=== PATIENT | male | born 1940 | race Caucasian/White ===

== ENCOUNTER 2018-12-13 01:18 | Inpatient (IN) | payer MEDICARE, OTHER ==
[~2018-12-13] VITALS: Ht 170.2 cm; Wt 83.5 kg
[2018-12-13] VITALS (26 sets, daily range): BP systolic 94–147; BP diastolic 37–95
--- NOTE | 2018-12-13 01:30 | NUR ---
PT FRANCIS FROM HOME C/O SOB X1 DAY. REC'D 5MG ALBUTEROL TREATMENT, MINIMAL RELIEF. BS 123. PT AOX4. DENIES PAIN AT THIS TIME. PT ON MONITOR IN BED 11. WILL CONTINUE TO MONITOR.
[2018-12-13] MEDS ORDERED: Magnesium 1GM/D5W 100ML PREMIX 200 ML IV ONE ×2 (01:55→02:08)
[2018-12-13] MEDS ORDERED: methylPREDNISolone SOD SUCC 125 MG/2ML VIAL IV ONE (02:00)
[2018-12-13] MEDS ORDERED: DILTIAZEM HCL 50 MG IV IV ONE ×2 (02:00→03:30)
[2018-12-13] MEDS ORDERED: IPRATROPIUM NEB FS 0.5 MG/2.5 ML AMPUL.NEB NEB ONE (02:00)
[2018-12-13] MEDS ORDERED: Calcium Gluconate 1GM/10ML 4.65 MEQ in IV NS 0.9% 50 ML IV ONE (02:00)
[2018-12-13] MEDS ORDERED: Calcium Gluconate 0.465 MEQ/ML VIAL IV ONE (02:01)
[2018-12-13] MEDS ORDERED: DILTIAZEM HCL 25 MG IV ONE ×2 (02:01→03:51)
--- NOTE | 2018-12-13 02:01 | NUR ---
RT AT BEDSIDE
--- NOTE | 2018-12-13 02:02 | NUR ---
IV INITIATED RIGHT AC 18G. LABS DRAWN FROM SITE. WATER SOFTENER SERVICER AT BEDSIDE FOR COLLECTION
--- NOTE | 2018-12-13 02:11 | NUR ---
RADIOLOGY AT BEDSIDE FOR XRAY
[2018-12-13 02:12] LABS: BASOPHILS % (AUTO) 0.2 % (0.0-2.0); HEMATOCRIT 42 % (39-51); HEMOGLOBIN 13.9 g/dL (13.5-17.5); LYMPHOCYTES # (AUTO) 0.2 /CMM (0.8-4.8); LYMPHOCYTES % (AUTO) 0.9 % (20.0-44.0); MEAN CORPUSCULAR HGB CONC 34 g/dl (31.0-36.0); MEAN CORPUSCULAR VOLUME 88 fL (80-96); MONOCYTES # (AUTO) 0.8 /CMM (0.1-1.30); MONOCYTES % (AUTO) 3.6 % (2.0-12.0); NEUTROPHILS # (AUTO) 22.7 /CMM (1.8-8.9); NEUTROPHILS % (AUTO) 95.3 % (43.0-81.0); PLATELET COUNT (AUTO) 272 /CMM (150-450); RED BLOOD CELL COUNT(AUTO) 4.71 MIL/uL (4.5-6.0); WHITE BLOOD COUNT (AUTO) 23.8 K/uL (4.3-11.0)
[2018-12-13 02:17] LABS: CALCIUM, SERUM 9.9 mg/dL (8.5-10.1); CARBON DIOXIDE 26 mmol/L (21-32); CHLORIDE 97 mmol/L (98-107); CREATININE 2.3 mg/dL (0.6-1.3); GLUCOSE 138 mg/dL (74-106); POTASSIUM 3.4 mmol/L (3.5-5.1); SODIUM SERUM 137 mmol/L (136-145); UREA NITROGEN, BLOOD 58 mg/dL (7-18)
[2018-12-13] MEDS ORDERED: methylPREDNISolone SOD SUCC 40 MG/ML VIAL ONE (02:29)
[2018-12-13 02:30] LABS: ALANINE AMINOTRANSFERASE 61 U/L (12-78); ALBUMIN 2.4 g/dL (3.4-5.0); ALKALINE PHOSPHATASE 93 U/L (46-116); ASPARTATE AMINOTRANSFERASE 86 U/L (15-37); B-TYPE NATRIURETIC PEPTIDE 8451 PG/ML (0-125); BILIRUBIN,DIRECT 0.9 mg/dL (0.0-0.2); BILIRUBIN,TOTAL 1.8 mg/dL (0.2-1.0); TOTAL PROTEIN, SERUM 6.4 g/dL (6.4-8.2)
[2018-12-13] MEDS ORDERED: IV NS 0.9% 250 ML IV ONE (02:30)
[2018-12-13 02:31] LABS: ABG BASE EXCESS -1.8 mmol/L; ABG OXYGEN SATURATION 93.3 % (92.0-98.5); ABG PCO2 31.9 mmHg (35.0-45.0); ABG PH 7.443 (7.350-7.450); ABG PO2 67.8 mmHg (75.0-100.0); AaDO2 252.8 mmHg; MetHb 0.5 % (0.0-1.5); O2Hb 91.9 % (94.0-97.0); PEEP,BG 5 cm H2O; SITE, ABG Right Radial; VENT MODE, BG bipap
[2018-12-13] MEDS ORDERED: IPRATROPIUM NEB FS 0.5 MG/2.5 ML AMPUL.NEB ONE (02:34)
[2018-12-13] MEDS ORDERED: methylPREDNISolone SOD SUCC 125 MG/2ML VIAL ONE (02:38)
[2018-12-13] MEDS ORDERED: ASPIRIN 81 MG TAB.CHEW ONE (02:46)
[2018-12-13] MEDS ORDERED: ASPIRIN 81 MG TAB.CHEW PO ONE (03:00)
[2018-12-13] MEDS ORDERED: DILTIAZEM HCL 50 MG IV ONE (03:51)
[2018-12-13] MEDS ORDERED: DILTIAZEM HCL IV 125 MG in IV NS 0.9% 100 ML IV PRN (04:00)
--- NOTE | 2018-12-13 04:13 | NUR ---
DILTIAZEM 5MG/HR DRIP STARTED PER MD ORDER
--- NOTE | 2018-12-13 04:26 | NUR ---
PANEL HAS BEEN PAGED. AWAITING CALL BACK
--- NOTE | 2018-12-13 04:31 | NUR ---
DILTIAZEM INCREASED FROM 5MG/HR TO 10 MG/HR PER MD ORDER
--- NOTE | 2018-12-13 04:40 | NUR ---
PHLEB AT BEDSIDE FOR LAB CULTURES
[2018-12-13] MEDS ORDERED: HEPARIN INFUSION/D5W 500 ML IV PRN (05:00)
[2018-12-13] MEDS ORDERED: AMIODARONE 150 MG in IV D5W 100 ML IV ONE ×4 (05:00)
[2018-12-13] MEDS ORDERED: MAGNESIUM HYDROXIDE 30 ML UDC PO PRN (05:00)
[2018-12-13] MEDS ORDERED: MAG HYDROX/AL HYDROX/SIMETH 30 ML UDC PO PRN (05:00)
[2018-12-13] MEDS ORDERED: AZITHROMYCIN 500 MG in IV D5W 250 ML IV SCH ×5 (05:00→09:00)
[2018-12-13] MEDS ORDERED: ZOLPIDEM TARTRATE 5 MG TABLET PO PRN (05:00)
[2018-12-13] MEDS ORDERED: HEPARIN SODIUM,PORCINE/PF 50 UNIT/5 ML DISP.SYRIN IV ONE (05:00)
[2018-12-13] MEDS ORDERED: AMIODARONE 900 MG in IV D5W 482 ML IV PRN ×5 (05:00→07:00)
[2018-12-13] MEDS ORDERED: HYDROCODONE/APAP 5/325MG 1 EACH TABLET PO PRN (05:00)
[2018-12-13] MEDS ORDERED: CEFTRIAXONE 1 G in IV D5W 50 ML IV SCH (05:00)
[2018-12-13] MEDS ORDERED: ONDANSETRON HCL/PF 4 MG/2 ML VIAL IVP PRN (05:00)
[2018-12-13] MEDS ORDERED: CEFTRIAXONE 1GM BAG (ER ONLY) 1 GM/50 ML PIGGYBACK IV ONE (05:00)
--- NOTE | 2018-12-13 05:05 | NUR ---
URINE COLLECTED AND SENT TO LAB
--- NOTE | 2018-12-13 05:07 | NUR ---
PT TAKEN TO RADIOLOGY VIA PACO
[2018-12-13 05:46] LABS: APPEARANCE,URINE CLOUDY (CLEAR); BILIRUBIN,URINE 1+ (NEGATIVE); BLOOD, URINE 2+ Ery/uL (NEGATIVE); COLOR,URINE ORANGE (YELLOW); KETONES,URINE NEGATIVE (NEGATIVE); LEUKOCYTE ESTERASE ,URINE NEGATIVE (NEGATIVE); NITRITE, URINE NEGATIVE (NEGATIVE); PH,URINE 5.5 (5.0-8.0); PROTEIN,URINE 2+ mg/dl (NEGATIVE); UGLUCOSE NEGATIVE (NEGATIVE)
[2018-12-13 05:55] LABS: BACTERIA,URINE Moderate /HPF (None Seen); SQUAMOUS EPITHELIAL CELL,UR Rare /HPF (None Seen)
[2018-12-13 05:56] LABS: URINE AMORPHOUS URATE Few /HPF (None Seen)
[2018-12-13] MEDS ORDERED: ATORVASTATIN 40 MG TABLET ONE (06:05)
[2018-12-13] MEDS ORDERED: CEFTRIAXONE 1GM BAG (ER ONLY) 50 ML IV ONE (06:06)
[2018-12-13] MEDS: ATORVASTATIN 40 MG TABLET PO SCH ×2 (06:12→21:40)
--- NOTE | 2018-12-13 06:15 | NUR ---
REPORT GIVEN TO ROULA CUEVAS FOR JOSH
[2018-12-13] MEDS ORDERED: AMIODARONE 150 MG/3 ML VIAL IV ONE (06:27)
--- NOTE | 2018-12-13 06:35 | NUR ---
ICU/RN-ADMITTED THIS 78 Y/O MALE FROM ER PER ACLS PROTOCOL. ROUTINE ICU ADMISSION CARE INITIATED. NURSING FOCUS:ALTERED CARDIAC TISSUE PERFUSION R/T DIAGNOSIS. PT. IS AWAKE, ALERT, EXPRESSIVE OF NEEDS, NOTED W/ ONGOING CARDIZEM DRIP AT 10MG/HR, TURNED OFF IMMEDIATELY PER DR. MARTÍNEZ. WILL START AMIODARONE DRIP PER PROTOCOL. DR. MARTÍNEZ AT THE BEDSIDE TO ASSESS PT. PT. W/ SOME SKIN ISSUES, PHOTOS TAKEN.EKG ATRIAL FIB. W/ RVR. HR-137/MIN. BP-117/50. PT. IS A FULL CODE.
[2018-12-13] MEDS: IV NS 0.9% 1,000 ML IV PRN ×2 (06:51→23:08)
--- NOTE | 2018-12-13 07:00 | NUR ---
ICU/RN- PT. REMAINS ON ATRIAL FIBRILLATION W/ HR-139. BP-126/47. AWAITING FOR AMIODARONE DRIP. IV LOADING DOSE WAS JUST GIVEN.REPORT GIVEN TO RN AFSATU.
--- NOTE | 2018-12-13 07:05 | NUR ---
AC/DC REWINDER INITIAL NOTES RECEIVED PT FROM NIGHTSHIFT RN. PT JUST ADMITTED FROM ER FIR AFIB WITH RVR. PT REMAIN AFIB ON MONITOR WITH A CURRENT HR OF 140. HE DENIES ANY CHEST PAIN AT THIS TIME. HE DENIES ANY SOB OR DIFFICULTY BREATHING. PERIPHERAL IVS NOTED TO BE C/D/I. WILL INITIATE AMIODARONE AND HEPARIN DRIP ONCE DELIVERED BY PHARMACIST. BED IN LOW DORIS POSITION, SIDE RAILS UP X2, CALL LIGHT TANGIRNAQ REACH. WILL CONTINUE TO MONITOR
[2018-12-13 08:01] LABS: THYROID STIMULATING HORMONE 0.687 uIU/mL (0.358-3.74)
[2018-12-13] MEDS ORDERED: HEPARIN SODIUM, PORCINE 5000 UNITS/1 ML VIAL IV ONE (08:30)
[2018-12-13] MEDS: CEFEPIME 2 GM in IV D5W 100 ML IV SCH (08:42)
[2018-12-13] MEDS: HEPARIN INFUSION/D5W 500 ML IV PRN (09:03)
--- NOTE | 2018-12-13 10:49 | NUR ---
EKG DONE, RN NOTIFIED
[2018-12-13] MEDS: AZITHROMYCIN 500 MG in IV D5W 250 ML IV SCH (11:10)
[2018-12-13] MEDS: methylPREDNISolone SOD SUCC 40 MG/ML VIAL IV SCH ×2 (11:14→17:26)
[2018-12-13 12:10] LABS: CREATININE, URINE 313.2 MG/DL (30.0-125.0); URINE TOTAL PROTEIN 374.5 mg/dL (0-11.9)
[2018-12-13] MEDS ORDERED: POTASSIUM CHLORIDE 10 MEQ TABLET.SA PO ONE (13:00)
--- NOTE | 2018-12-13 15:00 | NUR ---
LOCKET MAKER NOTES: HEPARIN INFUSION PT HAS A CURRENT PTT OF 67.8. NO CHANGES IN HEPARIN INFUSION PER PROTOCOL.
[2018-12-13] MEDS ORDERED: FEE PK DOSING 1 MIN EA MC ONE (16:01)
[2018-12-13] MEDS ORDERED: ALBU6.7H IH (16:28)
[2018-12-13] MEDS ORDERED: CHOL200026 PO (16:28)
[2018-12-13] MEDS ORDERED: AMLO10TA7 PO (16:28)
[2018-12-13] MEDS ORDERED: HYDR25TA4 PO (16:28)
[2018-12-13] MEDS ORDERED: HYDR-4354 PO (16:28)
[2018-12-13] MEDS ORDERED: ATOR20TA PO (16:28)
[2018-12-13] MEDS ORDERED: CYAN10009 PO (16:28)
[2018-12-13] MEDS ORDERED: BUDE10.2 IH (16:28)
[2018-12-13] MEDS: VANCOMYCIN 1 GM in IV D5W 250 ML IV SCH (17:26)
[2018-12-13] MEDS: IPRATROPIUM NEB FS 0.5 MG/2.5 ML AMPUL.NEB NEB PRN (17:32)
[2018-12-13] MEDS: ALBUTEROL FS 2.5 MG/0.5 ML VIAL.NEB NEB PRN (17:32)
--- NOTE | 2018-12-13 18:00 | NUR ---
DOMAIN ARCHITECT NOTES: MD ROUNDING (DR. MARTÍNEZ) DR MARTÍNEZ ON UNIT AND NOTIFIED OF PT'S CONSISTENT HR IN THE 150S. MD ALSO MADE AWARE OF PT SOUNDING VERY WET. PER MD "ORDER DIGOXIN .25MG IX Q6HR X3 DOSES AND CONTINUE WITH CURRENT IV FLUIDS".
--- NOTE | 2018-12-13 19:11 | NUR ---
SOIL ANALYST CLOSING NOTES PT REMAINS STABLE. ALL NEEDS MET DURING SHIFT AND ORDERS CARRIED OUT ACCORDINGLY .ALL DUE MEDS GIVEN. PRN CARE RENDERED. PT REPOSITIONED AND TURNED PER PROTOCOL. CALL RECEIVED FROM LAB IN REGARDS TO PRELIM BLOOD CX RESULTS (GRAM + COCCI IN CHAINS). ENDORSED TO NIGHTSHIFT RN OF RESULTS. PERIPHERAL IVS REMAIN PATENT AND INTACT. PT TOLERATING HEPARIN DRIP AT 1200UNITS, ALONG WITH AMIODARONE AT 0.5MG, AND NS @ 75ML/HR WELL. PT REMAINS AFIB WITH A CURRENT HR OF 141. SAFETY MEASURES REMAIN IN PLACE. ENDORSE TO NIGHTSHIFT RN FOR JOSH
[2018-12-13] MEDS: DIGOXIN INJ 0.5 MG/2 ML AMPUL IV SCH (19:28)
--- NOTE | 2018-12-13 20:00 | NUR ---
ICU/RN-RECEIVED PT. FROM DAYSHIFT. AWAKE, ALERT, EXPRESSIVE OF NEEDS. BREATHING SPONTANEOUSLY TO ROOM AIR W/ O2 SUPPORT OF 6L/NC, SATS.-93%. SOB W/ MINIMAL EXERTION. PT. IS HARD OF HEARING. EKG ATRIAL FIBRILLATION W/ RVR. HR-149/MIN. BP-117/37. ON AMIODARONE DRIP AT .5MG/MIN PER PROTOCOL. ON HEPARIN DRIP AT 1200UNITS PER HOUR PER [facility] PROTOCOL NO S/S OF BLEEDING NOTED. WILL CONTINUE TO MONITOR. ON DROPLET PRECAUTIONS IN EFFECT , R/O INFLUENZA. PT. IS A FULL CODE. AFEBRILE.
[2018-12-14] VITALS (25 sets, daily range): BP systolic 93–165; BP diastolic 56–102
[2018-12-14] MEDS: methylPREDNISolone SOD SUCC 40 MG/ML VIAL IV SCH ×5 (00:04→23:21)
[2018-12-14] MEDS: DIGOXIN INJ 0.5 MG/2 ML AMPUL IV SCH ×5 (00:04→23:22)
[2018-12-14 04:33] LABS: BASOPHILS % (AUTO) 0.1 % (0.0-2.0); HEMATOCRIT 36 % (39-51); HEMOGLOBIN 12.3 g/dL (13.5-17.5); LYMPHOCYTES # (AUTO) 0.2 /CMM (0.8-4.8); LYMPHOCYTES % (AUTO) 0.8 % (20.0-44.0); MEAN CORPUSCULAR HGB CONC 34 g/dl (31.0-36.0); MEAN CORPUSCULAR VOLUME 88 fL (80-96); MONOCYTES # (AUTO) 0.5 /CMM (0.1-1.30); MONOCYTES % (AUTO) 2.1 % (2.0-12.0); PLATELET COUNT (AUTO) 260 /CMM (150-450); RED BLOOD CELL COUNT(AUTO) 4.11 MIL/uL (4.5-6.0); WHITE BLOOD COUNT (AUTO) 24.8 K/uL (4.3-11.0)
[2018-12-14 04:49] LABS: ALANINE AMINOTRANSFERASE 120 U/L (12-78); ALBUMIN 1.9 g/dL (3.4-5.0); ALKALINE PHOSPHATASE 104 U/L (46-116); ASPARTATE AMINOTRANSFERASE 191 U/L (15-37); CALCIUM, SERUM 9.2 mg/dL (8.5-10.1); CARBON DIOXIDE 25 mmol/L (21-32); CHLORIDE 97 mmol/L (98-107); CREATININE 2.4 mg/dL (0.6-1.3); GLUCOSE 147 mg/dL (74-106); MAGNESIUM 2.6 mg/dL (1.8-2.4); PHOSPHORUS 4.6 mg/dL (2.5-4.9); POTASSIUM 3.5 mmol/L (3.5-5.1); SODIUM SERUM 133 mmol/L (136-145); UREA NITROGEN, BLOOD 72 mg/dL (7-18)
[2018-12-14 04:59] LABS: CHOLESTEROL 62 mg/dL (<200); CREATINE KINASE, TOTAL 587 U/L (39-308); HDL CHOLESTEROL 23 mg/dL (40-60); LDL 22 mg/dL (0-99); TRIGLYCERIDES 50 mg/dL (30-150)
[2018-12-14] MEDS: ALBUTEROL FS 2.5 MG/0.5 ML VIAL.NEB NEB PRN ×2 (05:17→23:11)
[2018-12-14] MEDS: IPRATROPIUM NEB FS 0.5 MG/2.5 ML AMPUL.NEB NEB PRN ×2 (05:17→23:11)
[2018-12-14] MEDS: HEPARIN INFUSION/D5W 500 ML IV PRN (06:21)
--- NOTE | 2018-12-14 06:50 | NUR ---
ICU/RN- PT. LUANA. REMAINS ON ATRIAL FIBRILLATION W/ RVR. AMIODARONE DRIP FINISHED AND DCD PER PROTOCOL. REMAINS ON HEPARIN DRIP AT 1200 UNITS/HR. LATEST PTT-66.4. NO CHANGE. WILL CHECK PTT IN AM.
--- NOTE | 2018-12-14 08:00 | NUR ---
received pt from starter cup powder mixer, a/o x4, A flutter uncontrolled, on heparin drip at 1200units, on 4L NC, sat well, tolerates diet, urinates in urinal, v/s stable, no pain, pt turns and repositions by himself.
--- NOTE | 2018-12-14 08:02 | NUR ---
WOUND CARE CONSULT: PT PRESENTS WITH RT ELBOW SKIN TEAR, PRESENT ON ADMISSION. RECOMMENDATIONS MADE FOR SKIN PROTECTION AND WOUND CARE. DISCUSSED WITH NURSING STAFF. PT IS CONTINENT AT THIS TIME AND DEMONSTRATES ABILITY TO ASSIST WITH TURNING AND REPOSITIONING IN BED. CURRENT DANIELLE SCORE IS 15. WILL SEE PRN. VIDAL IN AGREEMENT WITH PLAN OF CARE. Addendum: 12/14/18 at 0804 by MARITZA GUEVARA WNDNU Amended: Links added.
[2018-12-14] MEDS: AZITHROMYCIN 500 MG in IV D5W 250 ML IV SCH (08:45)
[2018-12-14] MEDS: CEFEPIME 2 GM in IV D5W 100 ML IV SCH (08:46)
--- NOTE | 2018-12-14 10:30 | NUR ---
cardioversion done, pt converted to SR, tolerated it well.
[2018-12-14] MEDS: DRONEDARONE HYDROCHLORIDE 400 MG TABLET PO SCH ×2 (12:23→17:58)
[2018-12-14] MEDS: VANCOMYCIN 1 GM in IV D5W 250 ML IV SCH (15:39)
--- NOTE | 2018-12-14 16:18 | NUR ---
pt is resting in the bed, a/ox4, SR 1 degree HB, tolerates diet, urinate in urinal, v/s stable, no pain, pt cleaned and changed.
[2018-12-14] MEDS: RIVAROXABAN 15 MG TABLET PO SCH (17:57)
--- NOTE | 2018-12-14 19:30 | NUR ---
STOCK COUNTER NOTE PT RECEIVED A/O X3. ABLE TO MAKE NEEDS KNOWN. ON 4L OF O2 VIA NC AND SATURAITN Addendum: 12/14/18 at 2145 by OCTAVIO JASSO RN SATURATING WELL. BREATHING UNLABORED. NO C/O PAIN AT THIS TIME. BED ALARM ENABLED. BED LOCKED IN PLACE. IV CLEAN, DRY AND PATENT. URINAL AND COMMODE AT BEDSIDE. CALL LIGHT WITHIN REACH. WILL CONTINUE TO MONITOR.
--- NOTE | 2018-12-14 19:40 | NUR ---
HORIZONTAL BORING MILL SET UP OPERATOR NOTE TELE-AFIB 101 WITH PVC'S.
[2018-12-14] MEDS: IPRATROPIUM NEB FS 0.5 MG/2.5 ML AMPUL.NEB NEB SCH (20:00)
[2018-12-15] VITALS (29 sets, daily range): BP systolic 112–182; BP diastolic 49–100
--- NOTE | 2018-12-15 01:00 | NUR ---
GLOBAL LOGISTICS MANAGER NOTE PT NOTED WITH SOME CONFUSION AND TRYING TO GET OUT OF BED. REORIENTED PT FREQUENTLY AND VISUALLY MONITORED CLOSELY. BED ALARM ENABLED.
[2018-12-15] MEDS: IPRATROPIUM NEB FS 0.5 MG/2.5 ML AMPUL.NEB NEB SCH ×4 (01:52→19:41)
[2018-12-15 02:51] LABS: ABG BASE EXCESS -3.1 mmol/L; ABG OXYGEN SATURATION 91.8 % (92.0-98.5); ABG PCO2 39.4 mmHg (35.0-45.0); ABG PH 7.364 (7.350-7.450); ABG PO2 66.9 mmHg (75.0-100.0); COHb 0.3 % (0.5-1.5); MetHb 0.7 % (0.0-1.5); O2Hb 90.9 % (94.0-97.0); SITE, ABG Left Radial; VENT MODE, BG NASAL CANNULA
[2018-12-15 05:01] LABS: BASOPHILS % (AUTO) 0.2 % (0.0-2.0); HEMATOCRIT 34 % (39-51); HEMOGLOBIN 11.7 g/dL (13.5-17.5); LYMPHOCYTES # (AUTO) 0.1 /CMM (0.8-4.8); LYMPHOCYTES % (AUTO) 0.5 % (20.0-44.0); MEAN CORPUSCULAR HGB CONC 34 g/dl (31.0-36.0); MEAN CORPUSCULAR VOLUME 88 fL (80-96); MONOCYTES # (AUTO) 0.3 /CMM (0.1-1.30); MONOCYTES % (AUTO) 1.5 % (2.0-12.0); NEUTROPHILS # (AUTO) 20.5 /CMM (1.8-8.9); NEUTROPHILS % (AUTO) 97.8 % (43.0-81.0); PLATELET COUNT (AUTO) 255 /CMM (150-450)
[2018-12-15] MEDS: DIGOXIN INJ 0.5 MG/2 ML AMPUL IV SCH ×3 (05:27→17:06)
[2018-12-15] MEDS: methylPREDNISolone SOD SUCC 40 MG/ML VIAL IV SCH ×3 (05:27→16:23)
[2018-12-15 05:30] LABS: ALANINE AMINOTRANSFERASE 237 U/L (12-78); ALKALINE PHOSPHATASE 144 U/L (46-116); ASPARTATE AMINOTRANSFERASE 371 U/L (15-37); BILIRUBIN,TOTAL 0.8 mg/dL (0.2-1.0); CALCIUM, SERUM 9.2 mg/dL (8.5-10.1); CARBON DIOXIDE 22 mmol/L (21-32); CHLORIDE 95 mmol/L (98-107); CREATININE 3.2 mg/dL (0.6-1.3); GLUCOSE 152 mg/dL (74-106); MAGNESIUM 2.7 mg/dL (1.8-2.4); PHOSPHORUS 4.8 mg/dL (2.5-4.9); POTASSIUM 3.9 mmol/L (3.5-5.1); SODIUM SERUM 130 mmol/L (136-145)
[2018-12-15 05:36] LABS: UREA NITROGEN, BLOOD 99 mg/dL (7-18)
[2018-12-15] MEDS ORDERED: IV D5/ 0.9% NACL 1,000 ML IV PRN (07:19)
--- NOTE | 2018-12-15 08:00 | NUR ---
ICU/RN AM SHIFT INITIAL NOTES RECEIVED PT AWAKE IN BED, PT IS VERY CONFUSED TRYING TO GET OUT OF BED, BUT FOLLOWS COMMANDS. ON 5L O2 VIA N/C LUNG SOUNDS DIMINISHED, SATURATING @ 83-90%, ON TELE WITH CONTROLLED A-FIB, HR 100. ONE IV ACCESS PATENT WITH NO S/S INFECTION, ON TKO. SITTER TO BE ASSIGNED. SCHEDULED AM MEDS TO BE GIVEN. CL WITHIN REACHED AND SAFETY MAINTAINED. ON GOING MONITORING.
[2018-12-15] MEDS: DRONEDARONE HYDROCHLORIDE 400 MG TABLET PO SCH ×2 (08:46→16:22)
[2018-12-15] MEDS: CEFEPIME 2 GM in IV D5W 100 ML IV SCH (08:49)
[2018-12-15] MEDS ORDERED: DILTIAZEM HCL CD 240 MG PO SCH (09:00)
[2018-12-15] MEDS: AZITHROMYCIN 500 MG in IV D5W 250 ML IV SCH (09:33)
--- NOTE | 2018-12-15 11:45 | NUR ---
ICU/RN ROUNDS - DR. BOWEN PT SEEN & EXAMINED PT, VERBAL ORDER RECEIVED FOR STAT ABG, NOTED AND CARRIED, RT NOTIFIED. Addendum: 12/15/18 at 1659 by HORACIO SORIA RN ADDENDUM: ABG RESULT PCO2 = 45.2, DR. BOWEN AWARE.
--- NOTE | 2018-12-15 12:00 | NUR ---
ICU/RN NOON ROUNDS SITTER AT BEDSIDE, PT STILL CONFUSED, NO ACUTE CHANGE OF CONDITION. MONITORING CONTINUED.
[2018-12-15 12:14] LABS: ABG BASE EXCESS -6.5 mmol/L; ABG OXYGEN SATURATION 88.5 % (92.0-98.5); ABG PCO2 42.5 mmHg (35.0-45.0); ABG PH 7.286 (7.350-7.450); ABG PO2 68.5 mmHg (75.0-100.0); AaDO2 95.5 mmHg; COHb 0.6 % (0.5-1.5); MetHb 0.8 % (0.0-1.5); O2Hb 87.3 % (94.0-97.0); SITE, ABG Right Femoral; VENT MODE, BG 4L NC
[2018-12-15 14:11] LABS: *SPE A/G RATIO 0.8 (0.7-1.7); *SPE ALBUMIN 2.2 g/dL (2.9-4.4); *SPE ALPHA-1-GLOBULIN 0.6 g/dL (0.0-0.4); *SPE ALPHA-2-GLOBULIN 1.3 g/dL (0.4-1.0); *SPE BETA GLOBULIN 0.8 g/dL (0.7-1.3); *SPE GLOBULIN, TOTAL 2.9 g/dL (2.2-3.9); *SPE M-SPIKE 0.1 g/dL (Not Observed); *SPEGAMMA GLOBULIN 0.2 g/dL (0.4-1.8)
[2018-12-15 15:13] LABS: ABG BASE EXCESS -5.6 mmol/L; ABG OXYGEN SATURATION 89.6 % (92.0-98.5); ABG PCO2 34.2 mmHg (35.0-45.0); ABG PH 7.361 (7.350-7.450); ABG PO2 63.1 mmHg (75.0-100.0); AaDO2 110.6 mmHg; COHb 0.4 % (0.5-1.5); MetHb 0.7 % (0.0-1.5); O2Hb 88.6 % (94.0-97.0); SITE, ABG Right Radial; VENT MODE, BG NC 4L
[2018-12-15] MEDS: VANCOMYCIN 0.75 GM in IV D5W 250 ML IV SCH (16:17)
[2018-12-15] MEDS: RIVAROXABAN 15 MG TABLET PO SCH (16:21)
--- NOTE | 2018-12-15 16:30 | NUR ---
ICU/RN AFTERNOON ROUNDS SITTER AT BEDSIDE, NO CHANGE OF CONDITION. MONITORING CONTINUED.
--- NOTE | 2018-12-15 19:06 | NUR ---
ICU/RN AM SHIFT INITIAL NOTES NO OTHER ACUTE CHANGE OF CONDITION NOTED DURING SHIFT, PT IS STILL VERY CONFUSED AND RESTLESS. ALL NEEDS MET. WITH ON GOING IV INFUSION OF D5NS @ 100CC/HR, IV SITE PATENT. PT ENDORSED TO PM NURSE TO CONTINUE CARE. SITTER AT BEDSIDE. CL WITHIN REACHED AND SAFETY MAINTAINED.
--- NOTE | 2018-12-15 19:15 | NUR ---
ICU/SHIFT LEADER RECEIVED REPORT FROM DAY NURSE. PT APPEARS TO BE EXTREMELY AGITATED AND VERY RESTLESS. PT IS ATTEMPTING TO GET OUT OF BED, WELL PULL OF GOWN. PT IS CURRENTLY 1 TO 1 FOR PT'S SAFETY HE REMAINS IN THIS CURRENT STATE OF MIND. WILL CONTINUE TO MONITOR THIS PT AND HIS DELICATE STATE OF MIND TO AVOID INJURY.
--- NOTE | 2018-12-15 19:40 | NUR ---
ICU/RESIDENTIAL YOUTH COUNSELOR RT CAME BY, ASKED IF PT HAD BREATHING TREATMENT PT SOUNDED CONGESTED AND APPEARED TO BE UNCOMFORTABLE. PT SOUNDS VERY CONGESTED, SOME GURGLING SOUNDS. PT'S AM LABS SHOW ACUTE RENAL FAILURE. CALLED AVILA VIDAL FOR UMER AND KANIKA. BEFORE ROD MILL OPERATOR LEFT ON DAY SHIFT WE CHANGED PT. PT APPEARED TO BE URINATING IN DIAPER AND BLADDER APPEARED SLIGHTLY DISTENDED. WILL CONTINUE TO MONITOR THIS PT.
--- NOTE | 2018-12-15 20:10 | NUR ---
ICU/FRONT DESK MANAGER CALL PLACED TO CARTON CATCHER WHO SAID YES TO OWUSU AND LASIX 40MG IVP. CHARGE NURSE PLACED THE ORDERS IN COMPUTER AND CARRIED OUT. PT TOLERATED THIS WELL. OWUSU CATH WAS PLACED WITH 550ML OF URINE AND STILL DRAINING. WELL THE LASIX 40MG GIVEN WITH A BP OF 161/71. WILL MONITOR THIS PT AND HIS RESPIRATORY STATUS. PT IS CURRENTLY A 1 TO 1, DUE TO PT'S LEVEL OF CONFUSION.
[2018-12-15] MEDS ORDERED: FUROSEMIDE 40 MG/4 ML VIAL IV ONE (20:30)
--- NOTE | 2018-12-15 21:00 | NUR ---
ICU/WOODWORKER HELPER WHEN PT'S GIRLFRIEND WENT HOME, SHE TOOK KEYS AND WALLET. SHE SIGNED THEM OFF ON THE PERSONAL BELONGS LIST.
--- NOTE | 2018-12-15 21:30 | NUR ---
ICU/SHELLS INSPECTOR PT'S LIVE-IN GIRLFRIEND CAME IN TO SEE PT. SHE APPEARED TO BE VERY UPSET, WITH THE APPEARANCE OF PT. PT HAS CALMED DOWN A LOT SINCE THE START OF THE SHIFT. PT HAS HAD 800 ML OF URINE WITH OWUSU IN PLACE. ALSO GOOD RESULTS WITH THE 40MG OF LASIX. TOOK DOWN THE INFORMATION FROM [facility] DOCTORS. ALSO HAD HER FILL OUT A RELEASE OF MEDICAL INFORMATION FROM [facility] TO [facility]. APOLOGIZED FOR ANY MISS HANDLING OF INFORMATION AND SENSITIVITY IN CARE WITH BOYFRIEND SHE MIGHT HAVE FELT. WHEN SHE WENT HOME GIRLFRIEND WAS HAPPY WITH CARE MOVING FORWARD.
--- NOTE | 2018-12-15 22:30 | NUR ---
ICU/CONSTITUTIONAL LAW PROFESSOR PT APPEARS TO BE CALM AND SLEEPING CURRENTLY. WILL CONTINUE TO MONITOR THIS PT. ALSO THE 1X BAG OF IVF FINISHED THIS WAS HEPLOCK. ALSO BROUGHT UP TO CHARGE NURSE ATTENTION THAT PT IS GETTING DIGOXIN IVP Q [address] VASQUEZ, WAS ONLY X3 DOSES. PT HAD ALREADY GOTTEN 7, WILL NOTIFY PHARMACY.
[2018-12-16] VITALS (24 sets, daily range): BP systolic 116–142; BP diastolic 54–71
[2018-12-16] MEDS: DIGOXIN INJ 0.5 MG/2 ML AMPUL IV SCH
--- NOTE | 2018-12-16 00:40 | NUR ---
ICU/LICENSED CLINICAL SOCIAL WORKER PT APPEARS TO BE CALM, SLEEPING. WILL CONTINUE TO MONITOR THIS PT.
[2018-12-16] MEDS: IPRATROPIUM NEB FS 0.5 MG/2.5 ML AMPUL.NEB NEB SCH ×4 (01:43→19:46)
[2018-12-16] MEDS: ALBUTEROL FS 2.5 MG/0.5 ML VIAL.NEB NEB PRN (01:58)
[2018-12-16] MEDS: IPRATROPIUM NEB FS 0.5 MG/2.5 ML AMPUL.NEB NEB PRN (01:58)
--- NOTE | 2018-12-16 02:44 | NUR ---
ICU/LAB CLERK PT WOKE UP CONFUSED, AGITATED, WHEEZING COULD BE HEARD FROM PT HE TALKED. PT RECEIVED BREATHING TREATMENT. POST BREATHING TREATMENT PT CONTINUES TO HAVE WHEEZING. A PRN BREATHING TREATMENT WAS GIVEN TO HELP BREATHING. POST BREATHING TREATMENT PT COULD TALK, HOWEVER PT WAS MILDLY CONFUSED, UNABLE TO MAKE SENSE. PT FELL ASLEEP AFTER THIS. WILL CONTINUE TO MONITOR THIS PT AND HIS SATURATION.
--- NOTE | 2018-12-16 04:05 | NUR ---
ICU/SENIOR POLICY ANALYST AM LABS WERE DRAWN. ALONG WITH CHEST XRAY. AWAIT FOR ANY ABNORMAL VALUES
[2018-12-16 04:40] LABS: BASOPHILS # (AUTO) 0.1 /CMM (0.0-0.2); BASOPHILS % (AUTO) 0.5 % (0.0-2.0); HEMATOCRIT 31 % (39-51); HEMOGLOBIN 10.8 g/dL (13.5-17.5); LYMPHOCYTES # (AUTO) 0.1 /CMM (0.8-4.8); LYMPHOCYTES % (AUTO) 0.7 % (20.0-44.0); MEAN CORPUSCULAR HGB CONC 35 g/dl (31.0-36.0); MEAN CORPUSCULAR VOLUME 86 fL (80-96); MONOCYTES # (AUTO) 0.4 /CMM (0.1-1.30); MONOCYTES % (AUTO) 2.5 % (2.0-12.0); NEUTROPHILS # (AUTO) 16.7 /CMM (1.8-8.9); NEUTROPHILS % (AUTO) 96.3 % (43.0-81.0); PLATELET COUNT (AUTO) 241 /CMM (150-450); RED BLOOD CELL COUNT(AUTO) 3.63 MIL/uL (4.5-6.0); WHITE BLOOD COUNT (AUTO) 17.3 K/uL (4.3-11.0)
[2018-12-16 05:03] LABS: CALCIUM, SERUM 9.4 mg/dL (8.5-10.1); CARBON DIOXIDE 23 mmol/L (21-32); CHLORIDE 96 mmol/L (98-107); CREATININE 3.9 mg/dL (0.6-1.3); GLUCOSE 171 mg/dL (74-106); MAGNESIUM 2.7 mg/dL (1.8-2.4); PHOSPHORUS 5.7 mg/dL (2.5-4.9); SODIUM SERUM 132 mmol/L (136-145)
[2018-12-16 05:24] LABS: UREA NITROGEN, BLOOD 115 mg/dL (7-18)
[2018-12-16 05:55] LABS: BAND % (MANUAL) 2 % (0.0-5.0); METAMYELOCYTES % 1 % (0-0); MONOCYTES % (MANUAL) 1 % (0-11.0); NEUTROPHILS % (MANUAL) 96 (42-76)
--- NOTE | 2018-12-16 06:20 | NUR ---
ICU/COLLEGE DIRECTOR PT'S 0600 OF DIG NOT GIVEN DUE TO THIS WAS A 3X ONLY ORDERED, IT NOW 3 DAYS PAST.
--- NOTE | 2018-12-16 07:00 | NUR ---
RN NOTES RECEIVED PT ON BED, ALERT/ CONFUSED, ON 4L O2 N/C , NO DISTRESS NOTED AT THIS TIME, SITTER AT THE BEDSIDE FOR PT SAFETY, ON TELE SR HR IN 80'S, R FA IV SITE CLEAN,DRY AND INTACT, SR UP x3, CALL LIGHT WITHIN EASY REACH, BED ALARM ON , BED LOCKED AND IN LOWEST POSITION, CONTINUE TO MONITOR.
[2018-12-16 07:09] LABS: LYMPHOCYTES % (MANUAL) 0 % (16-48)
[2018-12-16] MEDS: methylPREDNISolone SOD SUCC 40 MG/ML VIAL IV SCH ×2 (08:22→16:26)
[2018-12-16 09:01] LABS: ABG BASE EXCESS -1.1 mmol/L; ABG OXYGEN SATURATION 91.8 % (92.0-98.5); ABG PCO2 42.3 mmHg (35.0-45.0); ABG PH 7.374 (7.350-7.450); ABG PO2 67.6 mmHg (75.0-100.0); COHb 0.3 % (0.5-1.5); MetHb 0.9 % (0.0-1.5); O2Hb 90.7 % (94.0-97.0); SITE, ABG Right Radial; VENT MODE, BG nasal cannula
--- NOTE | 2018-12-16 09:30 | NUR ---
RN NOTES DR BOWEN NOTIFED REGARDING ABG RESULTS , NO NEW ORDER RECEIVED
[2018-12-16] MEDS: ALBUMIN 25% 25 GM in PREMIX 1 EA IV SCH ×3 (11:45→22:32)
--- NOTE | 2018-12-16 12:00 | NUR ---
RN NOTES P IS MOUTH BREATHER , O2 SAT 87% , PT PALCED ON VENTI MASK AT 35%, O2 SAT UP TO 91%, CONTINUE TO MONITOR .
--- NOTE | 2018-12-16 14:00 | NUR ---
RN NOTES PT TRIES TO PULL O2 MASK OFF AT TIMES , SITTER AT THE BEDSIDE FOR SAFETY , CONTINUE TO MONITOR.
[2018-12-16] MEDS: VANCOMYCIN 0.75 GM in IV D5W 250 ML IV SCH (16:00)
[2018-12-16] MEDS: RIVAROXABAN 15 MG TABLET PO SCH (16:27)
[2018-12-16] MEDS: CEFTRIAXONE 2 G in IV D5W 100 ML IV SCH (18:11)
--- NOTE | 2018-12-16 18:50 | NUR ---
RN NOTES PT AT REST , ON VENT MASK AT 35% FIO2, NO DISTRESS NOTED, SR UP x3, CALL LIGHT WITHIN EASY REACH, BED LOCKED AND IN LOWEST POSITION , CONTINUE TO MONITOR
[2018-12-17] VITALS (24 sets, daily range): BP systolic 126–163; BP diastolic 58–77
[2018-12-17] MEDS: IPRATROPIUM NEB FS 0.5 MG/2.5 ML AMPUL.NEB NEB SCH ×4 (00:41→19:32)
--- NOTE | 2018-12-17 02:46 | NUR ---
RN NOTES ENCOURAGED PATIENT TO AGREE TO INSERT NG TUBE FOR LOW INTERMITTENT SUCTION DUE TO ESOPHAGEAL LEAKAGE. PATIENT NODDED AND AGREED. PROCEDURE WELL TOLERATED. NO PAIN OR BLEEDING OBSERVED. WILL CONTINUE TO MONITOR.
[2018-12-17 03:04] LABS: HEMATOCRIT 30 % (39-51); HEMOGLOBIN 10.1 g/dL (13.5-17.5); LYMPHOCYTES # (AUTO) 0.1 /CMM (0.8-4.8); LYMPHOCYTES % (AUTO) 0.8 % (20.0-44.0); MEAN CORPUSCULAR HGB CONC 34 g/dl (31.0-36.0); MEAN CORPUSCULAR VOLUME 87 fL (80-96); MONOCYTES # (AUTO) 0.5 /CMM (0.1-1.30); MONOCYTES % (AUTO) 2.7 % (2.0-12.0); NEUTROPHILS % (AUTO) 96.5 % (43.0-81.0); PLATELET COUNT (AUTO) 227 /CMM (150-450); RED BLOOD CELL COUNT(AUTO) 3.43 MIL/uL (4.5-6.0); WHITE BLOOD COUNT (AUTO) 17.6 K/uL (4.3-11.0)
[2018-12-17 03:17] LABS: ALANINE AMINOTRANSFERASE 141 U/L (12-78); ALBUMIN 2.9 g/dL (3.4-5.0); ALKALINE PHOSPHATASE 119 U/L (46-116); ASPARTATE AMINOTRANSFERASE 77 U/L (15-37); BILIRUBIN,TOTAL 0.6 mg/dL (0.2-1.0); CALCIUM, SERUM 9.4 mg/dL (8.5-10.1); CARBON DIOXIDE 23 mmol/L (21-32); CHLORIDE 99 mmol/L (98-107); CREATININE 4.4 mg/dL (0.6-1.3); GLUCOSE 163 mg/dL (74-106); MAGNESIUM 2.8 mg/dL (1.8-2.4); PHOSPHORUS 5.9 mg/dL (2.5-4.9); POTASSIUM 4.2 mmol/L (3.5-5.1); SODIUM SERUM 136 mmol/L (136-145); TOTAL PROTEIN, SERUM 6.1 g/dL (6.4-8.2)
[2018-12-17 03:18] LABS: UREA NITROGEN, BLOOD 138 mg/dL (7-18)
[2018-12-17] MEDS ORDERED: VANCOMYCIN 0.75 GM in IV D5W 250 ML IV SCH (04:00)
[2018-12-17] MEDS: ALBUMIN 25% 25 GM in PREMIX 1 EA IV SCH (04:49)
[2018-12-17] MEDS: CEFTRIAXONE 2 G in IV D5W 100 ML IV SCH ×2 (04:49→16:27)
--- NOTE | 2018-12-17 07:00 | NUR ---
FOREST FIRE PREVENTION MANAGER OPENING NOTES RECEIVED PT IN BED, LABORED BREATHING ON VENTURI MASK AT 35%. O2 WNL. AFIB ON TELE. PT IS A/OX1. ON RESTRAINTS BL SOFT WRIST. ATTEMPTING TO PULL OUT MASK AND LINES ONCE RELEASED. F/C DRAINING CLEAR YELLOW URINE. SAT PT UP. RT AT BEDSIDE WITH BREATHING TX. BED IN LOCKED/LOWEST POSITION. CALL LIGHT IN REACH. WILL CONT TO MONITOR.
[2018-12-17] MEDS: methylPREDNISolone SOD SUCC 40 MG/ML VIAL IV SCH ×2 (09:22→16:27)
[2018-12-17] MEDS: IV NS 0.9% 1,000 ML IV PRN (13:18)
[2018-12-17] MEDS: RIVAROXABAN 15 MG TABLET PO SCH (16:28)
--- NOTE | 2018-12-17 18:47 | NUR ---
DIRECTOR REACTOR PROJECTS END OF SHIFT NOTES PT ON 5L NC. O2 SAT WNL. SITTING UPRIGHT IN BED, NO S/SX OF DISTRESS NOTED THROUGHOUT SHIFT; ON TELE PT REMAINS AFIB. NS INFUSING VIA BERNA IV SITE/ PATENT/FLUSHED. PT IS A/OX1 AND FALLS ASLEEP EASILY. ASPIRATION PRECAUTIONS MAINTAINED. EXTREMITIES OFFLOADED. TX RENDERED ORDERED. PT TOLERATED. PLAN OF CARE DISCUSSED WITH PT'S GIRLFRIEND KIKI ON TELEPHONE. BED IN LOCKED/LOWEST POSITION. CALL LIGHT IN REACH. WILL ENDORSE TO PM NURSE FOR JOSH.
--- NOTE | 2018-12-17 19:10 | NUR ---
RB NOTES, PATIENT LAYING IN BED, SLEEPING AT THIS TIME, BUT AROUSABLE TO VERBAL STIMULI, ON 5L NC. WIT OPTIMAL O2 SAT LEVEL 93% AT THIS TIME, NO SOB/ACUTE DISTRESS NOTED AT THIS TIME, HOB ELEVATED, ON TELE PT REMAINS AFIB AT THIS TIME HIN LOW 100, BERNA IV SITE PATENT AND INTACT, IVF 0.9 % NS INFUSING WELL AND PATIENT TOLERATED WELL, SLEEPS EASILY WITH EYES OPEN, BUT RESPONSIVE TO SIMPLE QUESTIONS, ASPIRATION PRECAUTIONS MAINTAINED AT ALL TIME, REPOSITION Q2 AND PRN. BED IN LOCKED AND LOWEST POSITION, CALL LIGHT IN REACH, WILL CONTINUE TO MONITOR CLOSELY.
[2018-12-18] VITALS (20 sets, daily range): BP systolic 132–166; BP diastolic 57–85
[2018-12-18] MEDS: IPRATROPIUM NEB FS 0.5 MG/2.5 ML AMPUL.NEB NEB SCH ×4 (02:07→19:25)
[2018-12-18] MEDS: IV NS 0.9% 1,000 ML IV PRN ×2 (03:23→16:15)
[2018-12-18] MEDS: CEFTRIAXONE 2 G in IV D5W 100 ML IV SCH ×2 (04:00→16:01)
[2018-12-18 04:52] LABS: BASOPHILS % (AUTO) 0.2 % (0.0-2.0); HEMATOCRIT 29 % (39-51); HEMOGLOBIN 9.8 g/dL (13.5-17.5); LYMPHOCYTES # (AUTO) 0.2 /CMM (0.8-4.8); MEAN CORPUSCULAR HGB CONC 34 g/dl (31.0-36.0); MEAN CORPUSCULAR VOLUME 88 fL (80-96); MONOCYTES # (AUTO) 0.6 /CMM (0.1-1.30); MONOCYTES % (AUTO) 3.3 % (2.0-12.0); NEUTROPHILS # (AUTO) 15.9 /CMM (1.8-8.9); NEUTROPHILS % (AUTO) 95.5 % (43.0-81.0); PLATELET COUNT (AUTO) 208 /CMM (150-450); RED BLOOD CELL COUNT(AUTO) 3.33 MIL/uL (4.5-6.0); WHITE BLOOD COUNT (AUTO) 16.7 K/uL (4.3-11.0)
[2018-12-18 05:24] LABS: CALCIUM, SERUM 9.2 mg/dL (8.5-10.1); CARBON DIOXIDE 25 mmol/L (21-32); CHLORIDE 107 mmol/L (98-107); CREATININE 4.3 mg/dL (0.6-1.3); GLUCOSE 176 mg/dL (74-106); MAGNESIUM 2.8 mg/dL (1.8-2.4); POTASSIUM 4.2 mmol/L (3.5-5.1); SODIUM SERUM 145 mmol/L (136-145)
[2018-12-18 05:25] LABS: UREA NITROGEN, BLOOD 156 mg/dL (7-18)
--- NOTE | 2018-12-18 06:40 | NUR ---
RN NOTES, PATIENT IN SLEEPING AT THIS TIME, BUT AROUSABLE TO VERBAL STIMULI, NO SOB/ACUTE DISTRESS NOTED AT THIS TIME, ON 5L NC, WITH OPTIMAL O2 SAT LEVEL 92-93% AT THIS TIME, HOB ELEVATED, ON TELE SR WITH PVS AT THIS TIME HR 80-100, BERNA IV SITE PATENT AND INTACT, IVF 0.9 % NS INFUSING WELL AND PATIENT TOLERATED WELL, ASPIRATION PRECAUTIONS IN PLACED ALL TIME, REPOSITION Q2 AND PRN, NO SIGNIFICANT CHANGE IN CONDITION DURING THE NIGHT, BED LOCKED AND LOWEST POSITION, CALL LIGHT W/I REACH, WILL ENDORSE CONTINUITY OF CARE TO ONCOMING NURSE
[2018-12-18] MEDS: methylPREDNISolone SOD SUCC 40 MG/ML VIAL IV SCH ×2 (08:33→16:01)
--- NOTE | 2018-12-18 09:15 | NUR ---
DR BOWEN AT BEDSIDE. UPDATED ON PATIENT CONDITION LABS AND VS. MD AWARE PATIENT MORE CONFUSED AND LETHARGIC THAN HIS USUAL. PER MD PLEASE ORDER ABG. RT NOTIFIED
[2018-12-18 09:41] LABS: ABG BASE EXCESS -2.9 mmol/L; ABG OXYGEN SATURATION 89.5 % (92.0-98.5); ABG PCO2 42.4 mmHg (35.0-45.0); ABG PH 7.345 (7.350-7.450); ABG PO2 58.9 mmHg (75.0-100.0); AaDO2 119.7 mmHg; COHb 0.5 % (0.5-1.5); MetHb 0.9 % (0.0-1.5); O2Hb 88.2 % (94.0-97.0); SITE, ABG Right Radial; VENT MODE, BG NASAL CANNULA
--- NOTE | 2018-12-18 09:44 | NUR ---
POST ABG RESULTS FIO2 WAS INCREASED TO 6L N/C
[2018-12-18] MEDS: Z GUARD REMEDY 2 OZ OINT TP PRN ×2 (11:39→16:02)
--- NOTE | 2018-12-18 15:34 | NUR ---
patient more awake and alert at this time. drinking water with assist. ate applesauce. will attempt eating with dinner as well. able to tell me his name, and that he is in the hospital.
[2018-12-18] MEDS: RIVAROXABAN 15 MG TABLET PO SCH (16:01)
--- NOTE | 2018-12-18 18:25 | NUR ---
REPORT GIVEN TO BERTHA CELESTE FOR JOSH
--- NOTE | 2018-12-18 18:37 | NUR ---
ALL DUE MEDS GIVEN AND ALL NEEDS MET. PATIENT MORE ALERT AND AWAKE. REFUSING TO EAT MORE THAN A COUPLE BITES WITH MANY ATTEMPTS. SWALLOWING INTACT. ABLE TO DRINK WATER. OWUSU CATH TO GRAVITY GOOD URINE OUTPUT MINIMUM 100ML/HOUR. IV SITE C/D/I/P WITH IVF RUNNING PER MD ORDER. TOLERATING LOW FLOW 02 NASAL CANNULA. TURNING Q2H, AND OFFLOADING KEPT SKIN CLEAN AND DRY. PENDING TRANSFER TO [facility] 118-[address] VARGAS ORDER
--- NOTE | 2018-12-18 19:24 | NUR ---
LEXUS RN NOTE RECEIVED PATIENT FROM ICU @1901.PATIENT AXOX1-2 WITH PERIODS OF CONFUSION.CONTROLLED AFIB IN TELE MONITOR.BERNA IV INTACT AND PATENT WITH NS INFUSION.F/C DRAINING CLEAR YELLOW URINE.BED IS LOCKED AND IN LOW POSITION.CALL LIGHT IN REACH.BED ALARM ON.ENDORSED TO PM NURSE FOR JOSH.
--- NOTE | 2018-12-18 20:00 | NUR ---
RN OPENING NOTES RECEIVED BEDSIDE REPORT FROM AM RN. PATIENT IS AXO X2 WITH PERIODS OF CONFUSION.CONTROLLED AFIB IN TELE MONITOR. BERNA IV INTACT AND PATENT WITH NS INFUSION AT 75 ML/HR .F/C DRAINING CLEAR YELLOW WITH SEDIMENTS URINE ON GRAVITY. BED IS LOCKED AND IN LOW POSITION.CALL LIGHT IN REACH.BED ALARM ON. PATIENT IS REORIENTED TO OUR UNIT, HOB ELEVATED.NO SOB, COMPLAIN OF PAIN AT THIS TIME. WILL CONTINUE TO MONITOR PATIENT CLOSELY.
--- NOTE | 2018-12-18 22:46 | NUR ---
rn notes PATIENT HAS BLACK NATHALIE STOOL X1 .MD GONZALEZ NOTIFIED AND NEW ORDERS OF STOOL OB AND HOLD NEXT DOSE OF XARELTO ARE IN PLACE. WILL CONTINUE TO MONITOR PATIENT CLOSELY.
--- NOTE | 2018-12-18 22:50 | NUR ---
RN NOTES PATIENT'S STOOL HAS BEEN COLLECTED AND SENT TO LAB FOR STOOL OB PER MS GONZALEZ ORDER.
[2018-12-18 22:55] LABS: OCCULT BLOOD STOOL POSITIVE (NEGATIVE)
[2018-12-19] VITALS (8 sets, daily range): BP systolic 141–153; BP diastolic 70–87
[2018-12-19] MEDS: IPRATROPIUM NEB FS 0.5 MG/2.5 ML AMPUL.NEB NEB SCH ×4 (02:04→19:21)
[2018-12-19] MEDS: CEFTRIAXONE 2 G in IV D5W 100 ML IV SCH ×2 (05:40→17:27)
[2018-12-19 06:51] LABS: BASOPHILS % (AUTO) 0.2 % (0.0-2.0); HEMATOCRIT 30 % (39-51); HEMOGLOBIN 10.3 g/dL (13.5-17.5); LYMPHOCYTES # (AUTO) 0.2 /CMM (0.8-4.8); LYMPHOCYTES % (AUTO) 1.4 % (20.0-44.0); MEAN CORPUSCULAR HGB CONC 34 g/dl (31.0-36.0); MEAN CORPUSCULAR VOLUME 86 fL (80-96); MONOCYTES # (AUTO) 0.6 /CMM (0.1-1.30); MONOCYTES % (AUTO) 3.4 % (2.0-12.0); NEUTROPHILS # (AUTO) 15.5 /CMM (1.8-8.9); PLATELET COUNT (AUTO) 208 /CMM (150-450); RED BLOOD CELL COUNT(AUTO) 3.49 MIL/uL (4.5-6.0); WHITE BLOOD COUNT (AUTO) 16.4 K/uL (4.3-11.0)
[2018-12-19] MEDS: IV NS 0.9% 1,000 ML IV PRN ×2 (07:01→20:44)
[2018-12-19 07:06] LABS: CALCIUM, SERUM 9.1 mg/dL (8.5-10.1); CARBON DIOXIDE 24 mmol/L (21-32); CHLORIDE 111 mmol/L (98-107); CREATININE 3.7 mg/dL (0.6-1.3); GLUCOSE 182 mg/dL (74-106); POTASSIUM 3.8 mmol/L (3.5-5.1); SODIUM SERUM 148 mmol/L (136-145)
[2018-12-19 07:09] LABS: UREA NITROGEN, BLOOD 161 mg/dL (7-18)
[2018-12-19] MEDS: methylPREDNISolone SOD SUCC 40 MG/ML VIAL IV SCH (08:58)
[2018-12-19] MEDS ORDERED: PANTOPRAZOLE 40 MG VIAL IV SCH (13:30)
[2018-12-19] MEDS: PANTOPRAZOLE 40 MG VIAL IV SCH (15:09)
[2018-12-19] MEDS: RIVAROXABAN 15 MG TABLET PO SCH (17:00)
[2018-12-20] VITALS: BP 148/79
[2018-12-20] MEDS: IPRATROPIUM NEB FS 0.5 MG/2.5 ML AMPUL.NEB NEB SCH ×4 (01:44→19:45)
[2018-12-20 04:00] VITALS: BP 160/75
[2018-12-20] MEDS: CEFTRIAXONE 2 G in IV D5W 100 ML IV SCH ×2 (05:32→17:17)
--- NOTE | 2018-12-20 05:56 | NUR ---
RN NOTES RECEIVED PATIENT AWAKE IN BED WITH FAMILY AT BEDSIDE. ALERT AND RESPONSIVE WITH CONFUSION. NO DISTRESS NOTED. O2 VIA NASAL CANNULA WELL TOLERATED. HOB ELEVATED. NO PHYSICAL MANIFESTATION OF PAIN OR DISCOMFORT. VITAL SIGNS WNL. WILL ENDORSE TO NEXT SHIFT FOR CONTINUITY OF CARE. KEPT CLEAN AND DRY.
[2018-12-20 07:08] LABS: BASOPHILS % (AUTO) 0.2 % (0.0-2.0); HEMATOCRIT 31 % (39-51); HEMOGLOBIN 10.5 g/dL (13.5-17.5); LYMPHOCYTES # (AUTO) 0.3 /CMM (0.8-4.8); LYMPHOCYTES % (AUTO) 1.9 % (20.0-44.0); MEAN CORPUSCULAR HGB CONC 34 g/dl (31.0-36.0); MEAN CORPUSCULAR VOLUME 87 fL (80-96); MONOCYTES # (AUTO) 0.3 /CMM (0.1-1.30); MONOCYTES % (AUTO) 1.6 % (2.0-12.0); NEUTROPHILS # (AUTO) 15.4 /CMM (1.8-8.9); NEUTROPHILS % (AUTO) 96.3 % (43.0-81.0); PLATELET COUNT (AUTO) 196 /CMM (150-450); RED BLOOD CELL COUNT(AUTO) 3.53 MIL/uL (4.5-6.0); WHITE BLOOD COUNT (AUTO) 16.1 K/uL (4.3-11.0)
[2018-12-20 07:10] LABS: ALANINE AMINOTRANSFERASE 56 U/L (12-78); ALBUMIN 2.7 g/dL (3.4-5.0); ALKALINE PHOSPHATASE 86 U/L (46-116); ASPARTATE AMINOTRANSFERASE 25 U/L (15-37); BILIRUBIN,TOTAL 0.6 mg/dL (0.2-1.0); CARBON DIOXIDE 26 mmol/L (21-32); CHLORIDE 118 mmol/L (98-107); CREATININE 3.2 mg/dL (0.6-1.3); GLUCOSE 154 mg/dL (74-106); MAGNESIUM 2.4 mg/dL (1.8-2.4); PHOSPHORUS 4.8 mg/dL (2.5-4.9); POTASSIUM 3.7 mmol/L (3.5-5.1); TOTAL PROTEIN, SERUM 5.6 g/dL (6.4-8.2)
[2018-12-20 07:13] LABS: UREA NITROGEN, BLOOD 147 mg/dL (7-18)
--- NOTE | 2018-12-20 07:25 | NUR ---
RN OPENING NOTES RECEIVED PATIENT ASLEEP BUT EASILY AROUSABLE. O2 LEVEL WENT DOWN TO 82%. PATIENT REMOVED HIS NASAL CANNULA. PUT IT BACK IN PLACE, OXYGEN LEVEL WENT UP TO 90%. REORIENTED PATIENT TO NOT REMOVE THE NC. PATIENT IS STILL VERY CONFUSED. ON TELE MONITOR, PATIENT DX WITH AFIB WITH RVR. ON CARDIAC DIET. HAS A RIGHT AC WITH NS RUNNING AT 75 ML/HR. PER NOC SHIFT RN, PATIENT PULLED OUT HIS MIDLINE LAST NIGHT. WILL CONTINUE TO MONITOR CLOSELY. BED LOCKED AND IN LOW POSITION. CALL LIGHT WITHIN REACH.
[2018-12-20 07:29] LABS: SODIUM SERUM 157 mmol/L (136-145)
[2018-12-20 08:00] VITALS: BP 150/76
[2018-12-20] MEDS: PANTOPRAZOLE 40 MG VIAL IV SCH ×2 (08:29→20:59)
[2018-12-20] MEDS: IV D5W 1,000 ML IV PRN (09:54)
--- NOTE | 2018-12-20 12:02 | NUR ---
RN NOTE PATIENT IN BED ASLEEP BUT EASILY AROUSABLE. O2 SAT >88%. NO SOB WAS NOTED. FOR BREAKFAST, PATIENT ONLY ATE 20% OF HIS MEAL. NOC SHIFT RN SAID PATIENT HAS NOT BEEN EATING WELL. MD MADE AWARE AND SUGGESTED ENSURE FOR THE PATIENT. MD APPROVED, ORDER CARRIED OUT. PATIENT IVF WAS CHANGED FROM NS TO D5W, RUNNING AT 100ML/HR DUE TO SODIUM LEVEL OF 157. ALSO, ORDERED Z GUARD FROM THE PHARMACY
[2018-12-20] MEDS: ENSURE ENLIVE 237 ML LIQUID (VANILLA) PO SCH ×2 (14:11→18:25)
[2018-12-20 16:00] VITALS: BP 134/73
[2018-12-20] MEDS: RIVAROXABAN 15 MG TABLET PO SCH (17:00)
--- NOTE | 2018-12-20 18:52 | NUR ---
RN CLOSING NOTE PATIENT STABLE, AWAKE BUT CONFUSED. HAS A OWUSU CATH WITH 1250ML OUTPUT. HAD 2X BM, BLACK. AWARE. ORDERED ENSURE, PATIENT DRINKING IT. HELD XARELTO DUE TO BLOOD OCCULT FROM STOOL. WILL ENDORSE TO NOC SHIFT RN FOR CONT OF CARE
--- NOTE | 2018-12-20 19:30 | NUR ---
RN NOTES RECEIVED PT. AWAKE ON BED, F/C DRAINING CLEAR YELLOW URINE, A/OX2, CONFUSED, SIGNIFICANT OTHER AT BEDSIDE, NO SOB, NO PAIN NOTED, CALL LIGHT WITHIN REACH, SIDERAILSUPX2, CONTINUE TO MONITOR
[2018-12-20 20:00] VITALS: BP 132/81
--- NOTE | 2018-12-20 23:07 | NUR ---
RN NOTES NEW IV LINE INSERTED BY THE CHARGE NURSE ON THE LEFT WRIST#22
[2018-12-21] VITALS (83 sets, daily range): BP systolic 69–163; BP diastolic 34–96
[2018-12-21] MEDS: IPRATROPIUM NEB FS 0.5 MG/2.5 ML AMPUL.NEB NEB SCH ×4 (01:26→19:27)
--- NOTE | 2018-12-21 02:15 | NUR ---
RN NOTES PT. WAS TRYING TO PULLING OUT HIS IV LINE, HIS OXYGEN, HIS OXYGEN AND WAS TRYING TO PULL THE IV PUMP.. CHARGE NURSE GOT AN ORDER OF BILATERAL SOFT WRIST RESTRAIN FROM DR. TUCKER , ORDER NOTED AND VERIFIED
[2018-12-21] MEDS: CEFTRIAXONE 2 G in IV D5W 100 ML IV SCH (04:08)
[2018-12-21] MEDS: IV D5W 1,000 ML IV PRN ×3 (04:10→18:41)
--- NOTE | 2018-12-21 06:36 | NUR ---
RN NOTES AWAKE ON MEDICAL RESTRAINT, NOT ON DISTRESS, NO PAIN NOTED, SIDERAILSUPX2, PT. NEEDS ATTENDED
[2018-12-21 07:33] LABS: BASOPHILS # (AUTO) 0.2 /CMM (0.0-0.2); BASOPHILS % (AUTO) 0.7 % (0.0-2.0); EOSINOPHILS % (AUTO) 1.3 % (0.0-6.0); HEMATOCRIT 35 % (39-51); HEMOGLOBIN 11.7 g/dL (13.5-17.5); LYMPHOCYTES # (AUTO) 0.5 /CMM (0.8-4.8); MEAN CORPUSCULAR HGB CONC 34 g/dl (31.0-36.0); MEAN CORPUSCULAR VOLUME 89 fL (80-96); MONOCYTES # (AUTO) 0.4 /CMM (0.1-1.30); MONOCYTES % (AUTO) 1.5 % (2.0-12.0); NEUTROPHILS # (AUTO) 22.4 /CMM (1.8-8.9); NEUTROPHILS % (AUTO) 94.5 % (43.0-81.0); PLATELET COUNT (AUTO) 204 /CMM (150-450); RED BLOOD CELL COUNT(AUTO) 3.96 MIL/uL (4.5-6.0); WHITE BLOOD COUNT (AUTO) 23.7 K/uL (4.3-11.0)
--- NOTE | 2018-12-21 07:45 | NUR ---
TEL NURSE., Rapid called due to low sat less than 70% blood sugar 176 patient hx of copd and colon cancer and Dr Leos was notified
[2018-12-21 07:53] LABS: CALCIUM, SERUM 8.8 mg/dL (8.5-10.1); CARBON DIOXIDE 27 mmol/L (21-32); CHLORIDE 118 mmol/L (98-107); GLUCOSE 149 mg/dL (74-106); MAGNESIUM 2.4 mg/dL (1.8-2.4); PHOSPHORUS 5.8 mg/dL (2.5-4.9); POTASSIUM 3.8 mmol/L (3.5-5.1)
[2018-12-21] MEDS: ENSURE ENLIVE 237 ML LIQUID (VANILLA) PO SCH ×3 (08:00→18:00)
[2018-12-21] MEDS ORDERED: IV NS 0.9% 1,000 ML BAG IV STA (08:00)
--- NOTE | 2018-12-21 08:00 | NUR ---
Dr. Hanks notified no more output via ogt. ok to clamp.
--- NOTE | 2018-12-21 08:02 | NUR ---
DC [place], patient transferre to icu with all belonings endorsed to agriculture technician for agriculture technician for future care Addendum: 12/21/18 at 1042 by ANTHONY TOVAR RN DC NURSE, patient transferred to icu with all belonings, Endorsed to FLIGHT NURSE for future care
[2018-12-21 08:15] LABS: SODIUM SERUM 157 mmol/L (136-145); UREA NITROGEN, BLOOD 129 mg/dL (7-18)
--- NOTE | 2018-12-21 08:17 | NUR ---
RT NOTE: LATE ENTRY:@0745-ORTHOPAEDIC PHYSICIAN ASSISTANT CALLED AND PATIENT FOUND IN RESPIRATORY DISTRESS. ABG DONE AND PROCESSED BY (LAURA,RT) WHILE (СЕРГЕЙ,RT) AND (LACEY,RT) BEGIN MASK BAG VENTILATION. PATIENT WAS TRANSPORTED TO ICU WITH CHARGE NURSE (BARBARA) AND TEAM. @0815 -I ASSISTED Shaina ZULUAGA WITH ORAL INTUBATION. HE USED A 7.5 ETT AND SECURED AT 22 CM RIGHT SIDE INNER LIP LINE. PATIENT WAS PLACED ON PB 840 VENT. ALARMS SET AND AUDIBLE. WILL CONTINUE TO MONITOR.
[2018-12-21] MEDS ORDERED: SUCCINYLCHOLINE CHLORIDE 20 MG/ML VIAL IV ONE (08:27)
[2018-12-21] MEDS ORDERED: ETOMIDATE 2 MG/ML VIAL IV ONE (08:27)
[2018-12-21] MEDS ORDERED: FEE EMEERGENCY 1 MIN EA MC ONE (08:27)
[2018-12-21] MEDS ORDERED: ALBUTEROL FS 2.5 MG/0.5 ML VIAL.NEB NEB ONE (08:30)
--- NOTE | 2018-12-21 08:30 | NUR ---
Pt intubated at [address] Hernandez 7.5 22 at lip adjusted to to 24 post cxr. 2000 lm in bolus given per Dr Hidalgo order he is aware NA 157. will change ivf to d5w after bolus. Vent setting AC 24, 500, 100% no PEEP. Dr Romero and Chan here to see pt.
--- NOTE | 2018-12-21 08:35 | NUR ---
RT NOTE: PATIENT'S ETT ADVANCE TO 24 CM RIGHT CORNER LIP LINE. Addendum: 12/21/18 at 0838 by LACEY FRIED RT PER MD QUICK.
[2018-12-21] MEDS: NOREPINEPHRINE 8 MG in IV D5W 500 ML IV PRN (08:45)
[2018-12-21] MEDS ORDERED: ALBUTEROL FS 2.5 MG/3 ML VIAL.NEB NEB STA (08:58)
[2018-12-21] MEDS ORDERED: IV D5/ 0.9% NACL 1,000 ML IV ONE (09:00)
[2018-12-21] MEDS: PANTOPRAZOLE 40 MG VIAL IV SCH ×2 (09:22→20:51)
[2018-12-21] MEDS: ALBUTEROL HALF STRENGTH 1.25 MG/3 ML VIAL.NEB NEB SCH ×3 (10:00→19:27)
[2018-12-21] MEDS: PROPOFOL 100 ML IV PRN ×3 (10:37→22:04)
[2018-12-21] MEDS: VANCOMYCIN 0.75 GM in IV D5W 250 ML IV SCH (10:39)
--- NOTE | 2018-12-21 11:00 | NUR ---
Pt awake follows commands. denies pain. sedated for comfort with propofol
[2018-12-21] MEDS: PIPERACILLIN /TAZOBACTAM 2.25 G in IV D5W 50 ML IV SCH ×2 (12:20→20:52)
[2018-12-21 12:39] LABS: CARBON DIOXIDE 25 mmol/L (21-32); CHLORIDE 122 mmol/L (98-107); CREATININE 3.2 mg/dL (0.6-1.3); GLUCOSE 186 mg/dL (74-106); POTASSIUM 3.7 mmol/L (3.5-5.1)
[2018-12-21 12:45] LABS: SODIUM SERUM 159 mmol/L (136-145); UREA NITROGEN, BLOOD 133 mg/dL (7-18)
[2018-12-21 13:05] LABS: ABG BASE EXCESS 0.9 mmol/L; ABG OXYGEN SATURATION 96.4 % (92.0-98.5); ABG PH 7.019 (7.350-7.450); ABG PO2 141.8 mmHg (75.0-100.0); AaDO2 429.2 mmHg; COHb 0.6 % (0.5-1.5); O2Hb 94.9 % (94.0-97.0); SITE, ABG Right Radial; VENT MODE, BG 100% NON-REBREATHER
[2018-12-21 13:05] LABS: ABG OXYGEN SATURATION 98.7 % (92.0-98.5); ABG PCO2 45.3 mmHg (35.0-45.0); ABG PH 7.339 (7.350-7.450); ABG PO2 219.1 mmHg (75.0-100.0); AaDO2 448.6 mmHg; COHb 0.4 % (0.5-1.5); O2Hb 97.3 % (94.0-97.0); PEEP,BG 0 cm H2O; SITE, ABG Right Radial; VT, ABG 550 mL
--- NOTE | 2018-12-21 15:00 | NUR ---
Dr. Romero notified pt is able to follow commands during sedation vacation. Will initiate weaning in am.
[2018-12-21] MEDS ORDERED: CEFTRIAXONE 2 G in IV D5W 100 ML IV SCH (17:00)
[2018-12-21] MEDS: RIVAROXABAN 15 MG TABLET PO SCH (17:00)
--- NOTE | 2018-12-21 17:45 | NUR ---
RT NOTE: PATIENT SUCTIONED THROUGHOUT SHIFT TO OBTAIN MODERATE-LARGE AMOUNT OF THICK BROWN/BLOODY SECRETIONS. [facility]. VENT PLUGGED INTO RED OUTLET.
--- NOTE | 2018-12-21 19:27 | NUR ---
PT RECEIVED ORALLY INTUBATED WITH 7.5 ETT SECURED @ 24 CM AT THE LIP ON MECHANICAL VENT W/ NOTED SETTINGS PER MD ORDER. VENT ALARMS CHECKED, VENT PLUGGED INTO RED OUTLET, AMBU BAG AT BEDSIDE. SUCTIONED MODERATE AMOUNT OF BLOOD TINGED SECRETIONS . Q6 BREATHING TX GIVEN PER MD ORDER, NO ADVERSE REACTION NOTED. ETT PATENT AND SECURED. JEWEL CORNER BRUSHING MACHINE OPERATOR CUFF PRESSURE NOTED. NO RESPIRATORY DISTRESS NOTED AT THIS TIME . WILL CONTINUE TO MONITOR THE PT.
--- NOTE | 2018-12-21 19:45 | NUR ---
ICU/PRINCIPAL ACCOUNTS CLERK RECEIVED REPORT FROM DAY NURSE. SEE FLOWSHEET FOR FULL ASSESSMENT, INCLUDING VENT SETTINGS, WELL SKIN ISSUES AND THE INTERVENTIONS TO THEM. PT IS CURRENTLY ON SEDATION AND LEVO WELL IVF, SEE IV SPREAD SHEET FOR RATES. PT APPEARS TO BE IN NO ACUTE DISTRESS, PT WAS TURNED AND REPOSITIONED FOR COMFORT AND CARE.
[2018-12-21] MEDS ORDERED: IV NS 0.9% 1,000 ML IV PRN (20:00)
--- NOTE | 2018-12-21 20:40 | NUR ---
ICU/[employer]ER[employer] NETWORK ARCHITECT SPUTUM WAS COLLECTED AND SENT TO LAB, PER MD ORDERS FROM ID.
[2018-12-22] VITALS (105 sets, daily range): BP systolic 75–146; BP diastolic 40–95
[2018-12-22] MEDS: IPRATROPIUM NEB FS 0.5 MG/2.5 ML AMPUL.NEB NEB SCH ×4 (01:24→20:00)
[2018-12-22] MEDS: ALBUTEROL HALF STRENGTH 1.25 MG/3 ML VIAL.NEB NEB SCH ×4 (01:25→20:00)
[2018-12-22] MEDS: IV D5W 1,000 ML IV PRN ×3 (01:45→16:20)
--- NOTE | 2018-12-22 01:45 | NUR ---
ICU/CONCRETE PUMP OPERATOR HELPER PT WAS GIVEN AM CARE, ALONG WITH ORAL CARE. PT TOLERATED THIS WELL REMAINS ON CURRENT VENT SETTINGS WITH SATURATION AT 93-95%. PT WAS TURNED AND REPOSITIONED FOR COMFORT AND CARE. NO ACUTE DISTRESS SEEN. PT APPEARS TO BE RESTING CONFORMABLY.
--- NOTE | 2018-12-22 03:00 | NUR ---
ICU/MANAGER ROOFING DEMETRIO WAS REJECTED DUE TO PT'S POSITIVE STOOL CULTURE, ALONG WITH VISIBLE BLOOD IN SPUTUM WHEN SUCTIONING PT.
[2018-12-22] MEDS: PROPOFOL 100 ML IV PRN ×5 (03:54→23:43)
[2018-12-22] MEDS: PIPERACILLIN /TAZOBACTAM 2.25 G in IV D5W 50 ML IV SCH ×3 (04:10→20:46)
--- NOTE | 2018-12-22 04:10 | NUR ---
ICU/PROOFER PREPRESS AM LABS ALONG WITH CHEST XRAY WERE DONE. AWAIT FOR ANY ABNORMAL RESULTS. PT WAS TURNED AND REPOSITIONED FOR COMFORT AND CARE.
[2018-12-22] MEDS: RIVAROXABAN 15 MG TABLET PO SCH (04:29)
[2018-12-22 04:44] LABS: BASOPHILS % (AUTO) 0.1 % (0.0-2.0); EOSINOPHILS % (AUTO) 1.1 % (0.0-6.0); HEMATOCRIT 29 % (39-51); HEMOGLOBIN 9.5 g/dL (13.5-17.5); LYMPHOCYTES # (AUTO) 0.7 /CMM (0.8-4.8); LYMPHOCYTES % (AUTO) 2.5 % (20.0-44.0); MEAN CORPUSCULAR HGB CONC 33 g/dl (31.0-36.0); MEAN CORPUSCULAR VOLUME 89 fL (80-96); MONOCYTES # (AUTO) 0.5 /CMM (0.1-1.30); MONOCYTES % (AUTO) 1.8 % (2.0-12.0); NEUTROPHILS # (AUTO) 25.3 /CMM (1.8-8.9); NEUTROPHILS % (AUTO) 94.5 % (43.0-81.0); PLATELET COUNT (AUTO) 160 /CMM (150-450); RED BLOOD CELL COUNT(AUTO) 3.26 MIL/uL (4.5-6.0); WHITE BLOOD COUNT (AUTO) 26.8 K/uL (4.3-11.0)
[2018-12-22 05:12] LABS: CALCIUM, SERUM 7.3 mg/dL (8.5-10.1); CARBON DIOXIDE 26 mmol/L (21-32); CHLORIDE 115 mmol/L (98-107); CREATININE 3.7 mg/dL (0.6-1.3); GLUCOSE 174 mg/dL (74-106); MAGNESIUM 1.7 mg/dL (1.8-2.4); PHOSPHORUS 4.8 mg/dL (2.5-4.9); POTASSIUM 3.1 mmol/L (3.5-5.1); SODIUM SERUM 151 mmol/L (136-145); UREA NITROGEN, BLOOD 128 mg/dL (7-18)
[2018-12-22] MEDS: ENSURE ENLIVE 237 ML LIQUID (VANILLA) PO SCH ×3 (08:00→16:21)
[2018-12-22 08:29] LABS: ABG OXYGEN SATURATION 92.4 % (92.0-98.5); ABG PCO2 36.9 mmHg (35.0-45.0); ABG PH 7.402 (7.350-7.450); ABG PO2 69.3 mmHg (75.0-100.0); AaDO2 173.5 mmHg; COHb 0.4 % (0.5-1.5); MetHb 0.8 % (0.0-1.5); O2Hb 91.3 % (94.0-97.0); PEEP,BG 0 cm H2O; SITE, ABG Left Radial; VT, ABG 500 mL
[2018-12-22] MEDS: PANTOPRAZOLE 40 MG VIAL IV SCH ×2 (08:32→20:46)
--- NOTE | 2018-12-22 10:05 | NUR ---
RN NOTE 0715: Received patient sedated. With ETT to vent, tolerated settings well. With 3 PIVs intact. With BERNA PICC intact. On Levo @ 2mcg and Diprivan @ 25mcg, will titrate them as ordered. On IVF D5W @ 150. With Bryan cath intact, noted with karen colored urine with sediments. SR 90's on the monitor. Still noted with tracheal bleeding, will hold Xarelto. 0845: Off Levo, SBP remained >100, will monitor. S/E by Dr. Romero, awaiting ABG, Turned down Diprivan, able to open eyes, tracks voice, but does not follow all commands. 0900: Girlfriend at bedside, aware for patient's condition and POC. 0950: Afib 90-120's, informed Dr. Giles, On Xarelto but held for 3 days, awaiting for call back. 1000: Back on Levo for episodes of SBP 80's.
--- NOTE | 2018-12-22 11:16 | NUR ---
RN NOTE Aflutter 70's now, Dr. Giles made aware, no new order at this time.
--- NOTE | 2018-12-22 11:44 | NUR ---
RN NOTE S/E by Dr. Hanks, with order to DC Xarelto for Stool OB positive and tracheal bleeding. Made MD aware for episode of Afib and now on Aflutter. MD also ordered to DC Bryan and change to Condom cath. Patient tolerated procedure, now on condom cath, will monitor UOP. Now on Levo @ 8. MD also ordered for K replacement via IVPB.
[2018-12-22] MEDS: NOREPINEPHRINE 8 MG in IV D5W 500 ML IV PRN (11:48)
[2018-12-22] MEDS: POTASSIUM CL. PREMIX PERIPHER. 50 ML IV SCH ×4 (12:09→15:25)
--- NOTE | 2018-12-22 13:28 | NUR ---
RN NOTE Dr. Romero in the unit made aware for ABG result. Also mentioned to him patient became Afib up to 140's when off Diprivan, placed back on Diprivan and now he is Aflutter 70's. said to hold on weaning for now.
[2018-12-22] MEDS: ACETYLCYSTEINE 10% SOLN 400 MG/4 ML VIAL NEB SCH (17:23)
--- NOTE | 2018-12-22 21:13 | NUR ---
ICU/ROAD MACHINE OPERATOR PT IS VERY SEDATED, NOTIFIED CHARGE NURSE WHO THEN PER PROTOCOL DECREASED SEDATION FROM 25 MCG TO 20MCG. PT WAS TURNED AND REPOSITIONED FOR COMFORT AND CARE. WILL CONTINUE TO MONITOR THIS PT.
[2018-12-22] MEDS: VANCOMYCIN 0.75 GM in IV D5W 250 ML IV SCH (21:40)
--- NOTE | 2018-12-22 21:40 | NUR ---
ICU/VEGETABLE SCULLION PT'S HEART RATE INCREASED TO 140'S TO 130'S, AFIB. NOTIFIED THE CHARGE NURSE WHO THEN INCREASED THE SEDATION BACK TO 25MCG FROM 20MCG. WILL CONTINUE TO MONITOR THIS PT AND HIS HEART RATE.
--- NOTE | 2018-12-22 22:04 | NUR ---
ICU/ENTRY REP PT WAS SUCTIONED BY RT, HOWEVER PT'S HEART RATE INCREASED TO 130'S TO 140'S WITH AFIB/RVR. FOR A FEW MINUTES WHICH DID NOT SUBSTRAIN. WILL CONTINUE TO MONITOR THIS PT.
[2018-12-23] VITALS (106 sets, daily range): BP systolic 77–143; BP diastolic 40–90
[2018-12-23] MEDS: ACETYLCYSTEINE 10% SOLN 400 MG/4 ML VIAL NEB SCH ×4 (00:04→23:38)
[2018-12-23] MEDS: IV D5W 1,000 ML IV PRN (00:38)
[2018-12-23] MEDS: NOREPINEPHRINE 8 MG in IV D5W 500 ML IV PRN ×2 (02:07→19:27)
--- NOTE | 2018-12-23 02:30 | NUR ---
ICU/LOGGER DRIVING HORSES PT WAS GIVEN AM CARE, ALONG WITH ORAL CARE. PT TOLERATED THIS WELL REMAINS ON CURRENT VENT SETTINGS WITH SATURATION AT 95%. PT WAS TURNED AND REPOSITIONED FOR COMFORT AND CARE. NO ACUTE DISTRESS SEEN. PT APPEARS TO BE RESTING CONFORMABLY. WILL CONTINUE TO MONITOR THIS PT.
[2018-12-23] MEDS: ALBUTEROL HALF STRENGTH 1.25 MG/3 ML VIAL.NEB NEB SCH ×4 (03:20→20:11)
[2018-12-23] MEDS: IPRATROPIUM NEB FS 0.5 MG/2.5 ML AMPUL.NEB NEB SCH ×4 (03:20→20:11)
--- NOTE | 2018-12-23 04:20 | NUR ---
ICU/BOLT THREADER AM LABS ALONG WITH CHEST XRAY WERE DONE. AWAIT FOR ANY ABNORMAL RESULTS. PT WAS TURNED AND REPOSITIONED FOR COMFORT AND CARE.
[2018-12-23 05:00] LABS: BASOPHILS # (AUTO) 0.1 /CMM (0.0-0.2); BASOPHILS % (AUTO) 0.2 % (0.0-2.0); HEMATOCRIT 28 % (39-51); HEMOGLOBIN 9.3 g/dL (13.5-17.5); LYMPHOCYTES # (AUTO) 0.9 /CMM (0.8-4.8); LYMPHOCYTES % (AUTO) 2.7 % (20.0-44.0); MEAN CORPUSCULAR HGB CONC 33 g/dl (31.0-36.0); MEAN CORPUSCULAR VOLUME 88 fL (80-96); MONOCYTES # (AUTO) 0.8 /CMM (0.1-1.30); MONOCYTES % (AUTO) 2.4 % (2.0-12.0); NEUTROPHILS # (AUTO) 32.3 /CMM (1.8-8.9); NEUTROPHILS % (AUTO) 93.7 % (43.0-81.0); PLATELET COUNT (AUTO) 142 /CMM (150-450); RED BLOOD CELL COUNT(AUTO) 3.17 MIL/uL (4.5-6.0)
[2018-12-23] MEDS: PROPOFOL 100 ML IV PRN ×3 (05:19→21:26)
[2018-12-23] MEDS: PIPERACILLIN /TAZOBACTAM 2.25 G in IV D5W 50 ML IV SCH ×3 (05:19→21:25)
[2018-12-23 05:44] LABS: ALANINE AMINOTRANSFERASE 31 U/L (12-78); ALBUMIN 1.6 g/dL (3.4-5.0); ALKALINE PHOSPHATASE 75 U/L (46-116); ASPARTATE AMINOTRANSFERASE 24 U/L (15-37); BILIRUBIN,TOTAL 0.4 mg/dL (0.2-1.0); CARBON DIOXIDE 22 mmol/L (21-32); CHLORIDE 104 mmol/L (98-107); CREATININE 4.1 mg/dL (0.6-1.3); GLUCOSE 175 mg/dL (74-106); MAGNESIUM 1.6 mg/dL (1.8-2.4); PHOSPHORUS 5.9 mg/dL (2.5-4.9); POTASSIUM 3.8 mmol/L (3.5-5.1); SODIUM SERUM 138 mmol/L (136-145); TOTAL PROTEIN, SERUM 4.4 g/dL (6.4-8.2)
[2018-12-23 05:50] LABS: UREA NITROGEN, BLOOD 119 mg/dL (7-18)
[2018-12-23 05:56] LABS: WHITE BLOOD COUNT (AUTO) 34.5 K/uL (4.3-11.0)
[2018-12-23 06:12] LABS: EOSINOPHILS % (MANUAL) 1 % (0-4); LYMPHOCYTES % (MANUAL) 2 % (16-48); MONOCYTES % (MANUAL) 2 % (0-11.0); NEUTROPHILS % (MANUAL) 95 (42-76)
[2018-12-23] MEDS: IV NS 0.9% 1,000 ML IV PRN ×2 (06:15→19:27)
--- NOTE | 2018-12-23 07:05 | NUR ---
PHOTOENGRAVING PHOTOGRAPHER INITIAL NOTES RECEIVED PT FROM NIGHTSHIFT RN IN STABLE CONDITION. PT INTUBATED ON PROPOFOL DRIP AT 25MCG. VENT SETTINGS CHECKED FOR ACCURACY (AC 16, TV 500, FIO2 40%, PEEP 0). PT TOLERATING SETTINGS WELL. PT NOTED TO BE AFIB ON THE TELE MONITOR WITH A HR OF 75. CONDOM CATH NOTED TO BE INTACT AND DRAINING TO GRAVITY, RIGHT UPPER ARM PICC NOTED TO BE C/D/I. PT RECEIVING LEVO DRIP AT 6MCG/MIN. BP STABLE AT THIS TIME. BED IN LOW LOCKED POSITION, SIDE RAILS UP X3, CALL LIGHT WITHIN REACH, BILATERAL SOFT WRIST RESTRAINTS NOTES. GOOD PERIPHERAL PULSES AND CAP REFILL NOTED. WILL CONTINUE TO MONITOR
[2018-12-23] MEDS: ENSURE ENLIVE 237 ML LIQUID (VANILLA) PO SCH ×3 (07:41→18:00)
[2018-12-23] MEDS: PANTOPRAZOLE 40 MG VIAL IV SCH ×2 (08:20→21:25)
[2018-12-23 10:43] LABS: ABG BASE EXCESS -6.8 mmol/L; ABG OXYGEN SATURATION 92.4 % (92.0-98.5); ABG PCO2 34.8 mmHg (35.0-45.0); ABG PH 7.338 (7.350-7.450); ABG PO2 70.8 mmHg (75.0-100.0); AaDO2 174.4 mmHg; COHb 0.5 % (0.5-1.5); MetHb 0.8 % (0.0-1.5); O2Hb 91.2 % (94.0-97.0); PEEP,BG 5 cm H2O; SITE, ABG Right Radial
[2018-12-23] MEDS ORDERED: Magnesium 1GM/D5W 100ML PREMIX 50 ML IV SCH (11:00)
--- NOTE | 2018-12-23 11:00 | NUR ---
FARM EQUIPMENT MECHANIC NOTES: WEANING TRAIL PT PLACED ON SIMV MODE AROUND 0900. HOWEVER, PT NOTED TO BE TACHYCARDIC, TACHYPNEIC, AND RESTLESS. DR. POLK AND RT AT BEDSIDE. VERBAL ORDER FROM MD OBTAINED TO RESUME AC MODE WITH PREVIOUS SETTINGS
--- NOTE | 2018-12-23 17:08 | NUR ---
RT END OF THE SHIFT REPORT, PT. 78 YEARS OLD MALE REC. IN AM 0700 PT. ORALLY INTUBATED ETT #7.5 @ 24 CM LIP LINE ON VENT WITH NOTED AC SETTINGS, WEANING STARTED IN AM AND PT. FAILED @1110 AM PLACED BACK ON AC MODE PER DR. POLK ORDER NO OTHER CHANGES AND PT. REMAIN STABLE, ON AC MODE. B/S BILATERALLY RALES, SUX'D FOR MINIMAL/AMT AMT THIN WHITE SECRETIONS, SCOOP DRIVER DONE, EQUAL CHEST RISE NOTED, HME CHANGED, VENT PLUGGED INTO RED OUT LET. AMBU BAG REMAIN AT THE BEDSIDE. REPORT WILL PASS TO PM SHIFT. Addendum: 12/23/18 at 1710 by LAUREN GUERRA RT Amended: Links added.
--- NOTE | 2018-12-23 18:30 | NUR ---
JUSTICE COURT DEPUTY CLERK NOTES: THORACENTESIS CALLED RECEIVED FROM CARPENTER ASSISTANT INSTALLER. PLEURAL EFFUSION SEEN IN CHEST US APPEARS TO BE CONSOLIDATION ACCORDING TO TECH AND CONSULTING RADIOLOGIST. FINDINGS RELAYED TO DR. PEREIRA. TELEPHONE ORDER TO CANCEL THORACENTESIS OBTAINED.
--- NOTE | 2018-12-23 18:39 | NUR ---
I SPOKE WITH ROULA EMMANUEL REGARDING THE THORA STAT, MD KATHLEEN AWARE OF THE PROCEDURE, ULTRASOUND PERFORMED EARLIER TODAY SHOWED COMPLEX FLUID POSS CONSOLIDATION, PER MD KATHLEEN WILL REVIEW THE CASE AND WILL LET ME KNOW, BUT MOST PROBABLY WILL NOT BE DONE PER MD KATHLEEN
--- NOTE | 2018-12-23 18:44 | NUR ---
GASTROENTEROLOGY PROFESSOR CLOSING NOTES PT REMAINS STABLE ON VENTILATOR SUPPORT. VITAL SIGNS STABLE AT THIS TIME. INVASIVE LINES REMAIN PATENT AND INTACT. PT REPOSITIONED AND TURNED PER HOSPITAL PROTOCOL. SAFETY MEASURES REMAIN IN PLACE. WILL ENDORSE TO NIGHTSHIFT RN FOR JOSH
--- NOTE | 2018-12-23 19:40 | NUR ---
ICU/FINANCIAL COORDINATOR RECEIVED REPORT FROM DAY NURSE. SEE FLOWSHEET FOR FULL ASSESSMENT, INCLUDING VENT SETTINGS, WELL SKIN ISSUES AND THE INTERVENTIONS TO THEM. PT IS CURRENTLY ON SEDATION AND LEVO ALONG WITH IVF, SEE IV SPREAD SHEET FOR RATES. PT APPEARS TO BE IN NO ACUTE DISTRESS AT THIS TIME, PT WAS TURNED AND REPOSITIONED FOR COMFORT AND CARE. WILL CONTINUE TO MONITOR THIS PT
--- NOTE | 2018-12-23 21:30 | NUR ---
ICU/PROGRAM AIDE GIRLFRIEND CAME IN LIKE SHE USUALLY DOES, ASKED FOR UPDATES WHICH WERE GIVEN. UNABLE TO COME DURING THE DAY DUE TO WORK OBLIGATIONS. DID ASK IF PRIMARY MD CAN CALL HER TOMORROW.
--- NOTE | 2018-12-23 23:10 | NUR ---
ICU/SAMPLE CARD MAKER PT IS CURRENTLY ON 25MCG OF SEDATION, HOWEVER PT APPEARS TO BE SEDATED WITH HEART RATE DECREASED DOWN TO 60'S FROM NORMAL BASELINE OF 80-90'S. NOTIFIED CHARGE NURSE WHO THEN DECREASED THE SEDATION TO 20MCG. PT WAS THEN TURNED AND REPOSITIONED FOR COMFORT AND CARE. WILL CONTINUE TO MONITOR THIS PT.
[2018-12-24] VITALS (102 sets, daily range): BP systolic 83–132; BP diastolic 46–77
--- NOTE | 2018-12-24 00:10 | NUR ---
ICU/COMMUNICATION SPEC PT IS CURRENTLY ON 20MCG OF SEDATION, HOWEVER PT CONTINUES TO BE SEDATED WITH HEART RATE DECREASED DOWN TO 60'S-70'S FROM NORMAL BASELINE OF 80-90'S. NOTIFIED CHARGE NURSE WHO THEN DECREASED THE SEDATION TO 15MCG. WILL CONTINUE TO CLOSELY MONITOR THIS PT AND HIS HEART RATE.
[2018-12-24] MEDS: ALBUTEROL HALF STRENGTH 1.25 MG/3 ML VIAL.NEB NEB SCH ×4 (01:47→19:40)
[2018-12-24] MEDS: IPRATROPIUM NEB FS 0.5 MG/2.5 ML AMPUL.NEB NEB SCH ×4 (01:47→19:40)
--- NOTE | 2018-12-24 02:35 | NUR ---
ICU/POT PRESS OPERATOR PT WAS GIVEN AM CARE, ALONG WITH ORAL CARE. PT TOLERATED THIS WELL REMAINS ON CURRENT VENT SETTINGS WITH SATURATION AT 95%. PT WAS TURNED AND REPOSITIONED FOR COMFORT AND CARE. NO ACUTE DISTRESS SEEN. PT APPEARS TO BE RESTING CONFORMABLY. WILL CONTINUE TO MONITOR THIS PT.
--- NOTE | 2018-12-24 04:00 | NUR ---
ICU/NET C DEVELOPER PT IS CURRENTLY ON 15MCG OF SEDATION, HOWEVER PT CONTINUES TO BE SEDATED WITH HEART RATE TO 60'S-70'S FROM NORMAL BASELINE OF 80-90'S. NOTIFIED CHARGE NURSE WHO THEN DECREASED THE SEDATION TO 10MCG. WILL CONTINUE TO CLOSELY MONITOR THIS PT AND HIS HEART RATE.
--- NOTE | 2018-12-24 04:30 | NUR ---
ICU/STRIP CUTTING MACHINE OPERATOR AM LABS ALONG WITH CHEST XRAY WERE DONE. AWAIT FOR ANY ABNORMAL RESULTS. PT WAS TURNED AND REPOSITIONED FOR COMFORT AND CARE.
[2018-12-24 04:42] LABS: BASOPHILS % (AUTO) 0.1 % (0.0-2.0); EOSINOPHILS % (AUTO) 0.6 % (0.0-6.0); HEMATOCRIT 27 % (39-51); LYMPHOCYTES # (AUTO) 0.8 /CMM (0.8-4.8); LYMPHOCYTES % (AUTO) 2.8 % (20.0-44.0); MEAN CORPUSCULAR HGB CONC 34 g/dl (31.0-36.0); MEAN CORPUSCULAR VOLUME 87 fL (80-96); MONOCYTES # (AUTO) 0.7 /CMM (0.1-1.30); MONOCYTES % (AUTO) 2.4 % (2.0-12.0); NEUTROPHILS # (AUTO) 28.6 /CMM (1.8-8.9); NEUTROPHILS % (AUTO) 94.1 % (43.0-81.0); PLATELET COUNT (AUTO) 139 /CMM (150-450); RED BLOOD CELL COUNT(AUTO) 3.07 MIL/uL (4.5-6.0)
[2018-12-24] MEDS: PROPOFOL 100 ML IV PRN ×2 (04:46→17:46)
[2018-12-24] MEDS: PIPERACILLIN /TAZOBACTAM 2.25 G in IV D5W 50 ML IV SCH (04:46)
[2018-12-24 04:56] LABS: WHITE BLOOD COUNT (AUTO) 30.4 K/uL (4.3-11.0)
[2018-12-24 05:11] LABS: ALANINE AMINOTRANSFERASE 29 U/L (12-78); ALKALINE PHOSPHATASE 67 U/L (46-116); ASPARTATE AMINOTRANSFERASE 22 U/L (15-37); BILIRUBIN,TOTAL 0.5 mg/dL (0.2-1.0); CALCIUM, SERUM 7.5 mg/dL (8.5-10.1); CARBON DIOXIDE 19 mmol/L (21-32); CHLORIDE 105 mmol/L (98-107); CREATININE 4.8 mg/dL (0.6-1.3); GLUCOSE 106 mg/dL (74-106); POTASSIUM 4.1 mmol/L (3.5-5.1); SODIUM SERUM 139 mmol/L (136-145); TOTAL PROTEIN, SERUM 4.5 g/dL (6.4-8.2)
[2018-12-24 05:20] LABS: ALBUMIN 1.4 g/dL (3.4-5.0); PHOSPHORUS 8.2 mg/dL (2.5-4.9); UREA NITROGEN, BLOOD 119 mg/dL (7-18)
--- NOTE | 2018-12-24 07:05 | NUR ---
RETIREMENT ACTUARY INITIAL NOTES RECEIVED PT FROM NIGHTSHIFT RN IN STABLE CONDITION. PT INTUBATED ON PROPOFOL DRIP AT 10MCG/KG/MIN. VENT SETTINGS CHECKED FOR ACCURACY (AC 16, TV 500, FIO2 40%, PEEP 5). PT TOLERATING SETTINGS WELL. PT NOTED TO BE AFIB ON THE TELE MONITOR WITH A HR OF 72. CONDOM CATH NOTED TO BE INTACT AND DRAINING TO GRAVITY, RIGHT UPPER ARM PICC NOTED TO BE C/D/I. PT RECEIVING LEVO DRIP AT 8MCG/MIN. BP STABLE AT THIS TIME. BED IN LOW LOCKED POSITION, SIDE RAILS UP X3, CALL LIGHT WITHIN REACH, BILATERAL SOFT WRIST RESTRAINTS NOTES. GOOD PERIPHERAL PULSES AND CAP REFILL NOTED. WILL CONTINUE TO MONITOR
[2018-12-24] MEDS: ACETYLCYSTEINE 10% SOLN 400 MG/4 ML VIAL NEB SCH ×3 (07:41→23:19)
[2018-12-24] MEDS: ENSURE ENLIVE 237 ML LIQUID (VANILLA) PO SCH ×3 (07:55→17:43)
[2018-12-24] MEDS: VANCOMYCIN 0.75 GM in IV D5W 250 ML IV SCH (09:33)
[2018-12-24] MEDS: PANTOPRAZOLE 40 MG VIAL IV SCH ×2 (09:33→21:40)
[2018-12-24 10:05] LABS: ABG BASE EXCESS -7.4 mmol/L; ABG OXYGEN SATURATION 93.6 % (92.0-98.5); ABG PCO2 41.5 mmHg (35.0-45.0); ABG PH 7.276 (7.350-7.450); ABG PO2 77.9 mmHg (75.0-100.0); AaDO2 159.6 mmHg; COHb 0.2 % (0.5-1.5); MetHb 0.9 % (0.0-1.5); O2Hb 92.6 % (94.0-97.0); PEEP,BG 5 cm H2O; SITE, ABG Right Radial; VT, ABG 500 mL
[2018-12-24] MEDS ORDERED: CEFTRIAXONE 1 G VIAL IM SCH (10:30)
--- NOTE | 2018-12-24 10:38 | NUR ---
COMMUNITY SUPPORT PROFESSIONAL NOTES: MD ROUNDING (DR POLK AND DR. PEREIRA) MDS AT BEDSIDE AND MADE AWARE OF PT'S CONDITION, RECENT LABS, VITALS, AND IMAGING RESULTS. VERBAL ORDER OBTAINED FROM DR. PEREIRA AND INCREASE PT'S LEVO DRIP TO DOUBLE STRENGTH. PER DR. POLK, PT WILL NEED A CHEST CT WITHOUT CONTRAST TO FURTHER EVALUATE PLEURAL EFFUSION AND R/O EMPYEMA
[2018-12-24] MEDS: NOREPINEPHRINE 16 MG in IV D5W 500 ML IV PRN (11:09)
[2018-12-24] MEDS: CEFTRIAXONE 2 G in IV D5W 100 ML IV SCH (11:41)
[2018-12-24 12:10] LABS: ABG BASE EXCESS -7.3 mmol/L; ABG OXYGEN SATURATION 97.2 % (92.0-98.5); ABG PCO2 33.9 mmHg (35.0-45.0); ABG PH 7.336 (7.350-7.450); ABG PO2 112.4 mmHg (75.0-100.0); COHb 0.2 % (0.5-1.5); MetHb 1.2 % (0.0-1.5); O2Hb 95.8 % (94.0-97.0); PEEP,BG 5 cm H2O; SITE, ABG Right Radial; VT, ABG 520 mL
--- NOTE | 2018-12-24 19:09 | NUR ---
FIRE DISPATCHER CLOSING NOTES PT REMAINS STABLE ON VENTILATOR SUPPORT. VITAL SIGNS STABLE AT THIS TIME. INVASIVE LINES REMAIN PATENT AND INTACT. PT REPOSITIONED AND TURNED PER HOSPITAL PROTOCOL. PRN CARE RENDERED. CONDOM CATH REMAINS C/D/I. SAFETY MEASURES REMAIN IN PLACE. WILL ENDORSE TO NIGHTSHIFT RN FOR JOSH
--- NOTE | 2018-12-24 19:40 | NUR ---
RN NOTES RECEIVED PT SEDATED. ORALLY INTUBATED WITH ETT 7.5 / 25 CM AT LIP. WITH VENT SETTING AC 28 TV 520 FIO2 50% PEEP 5. CALM AND COOPERATIVE AT THIS TIME, TRYING TO OPEN HIS EYES. RESPONSIVE TO PAIN. A- FIB/A-FLUTTER HR 76 ON TELE MONITOR. NO ACUTE RESPIRATORY DISTRESS. IV SITE ON BERNA PICC LINE. RUNNING WITH PROPOFOL @ 10 MCG/KG/MIN, TKO AND LEVOPHED @ 8 MCG/MIN. TOLERATED WELL. FLUSHED WELL. C/D/I. IV SITE ON LEFT WRIST INTACT AND PATENT. CORE MEASURE AT THIS TIME WAS 98.8. TURNED AND REPOSITIONED FOR SKIN MANAGEMENT. KEPT PT CLEAN AND DRY. OFFLOADED EXT. WITH PILLOWS. BED LOCKED AND SAFETY.
--- NOTE | 2018-12-24 20:57 | NUR ---
RECEIVED PT INTUBATED 7.5 ETT SECURED AT 25CM AT THE LIP. NO RESP DISTRESS NOTED PT TOLERATING VENT SETTINGS. SX'D FOR MOD AMT OF THICK PALE SECRETIONS. VENT ALARMS SET AND AUDIBLE. ETT CUFF FARM CONSULTANT. AMBU BAG AT BEDSIDE. WILL CONTINUE TO MONITOR. Addendum: 12/24/18 at 2058 by RENA MAYA RT Amended: Links added.
[2018-12-25] VITALS (107 sets, daily range): BP systolic 76–143; BP diastolic 40–104
[2018-12-25] MEDS: ALBUTEROL HALF STRENGTH 1.25 MG/3 ML VIAL.NEB NEB SCH ×4 (00:50→19:39)
[2018-12-25] MEDS: IPRATROPIUM NEB FS 0.5 MG/2.5 ML AMPUL.NEB NEB SCH ×4 (00:50→19:39)
[2018-12-25 04:49] LABS: BASOPHILS % (AUTO) 0.1 % (0.0-2.0); EOSINOPHILS % (AUTO) 0.9 % (0.0-6.0); HEMATOCRIT 25 % (39-51); HEMOGLOBIN 8.5 g/dL (13.5-17.5); LYMPHOCYTES # (AUTO) 0.7 /CMM (0.8-4.8); LYMPHOCYTES % (AUTO) 3.8 % (20.0-44.0); MEAN CORPUSCULAR HGB CONC 34 g/dl (31.0-36.0); MEAN CORPUSCULAR VOLUME 87 fL (80-96); MONOCYTES # (AUTO) 0.5 /CMM (0.1-1.30); MONOCYTES % (AUTO) 2.8 % (2.0-12.0); NEUTROPHILS # (AUTO) 17.3 /CMM (1.8-8.9); NEUTROPHILS % (AUTO) 92.4 % (43.0-81.0); PLATELET COUNT (AUTO) 138 /CMM (150-450); RED BLOOD CELL COUNT(AUTO) 2.88 MIL/uL (4.5-6.0); WHITE BLOOD COUNT (AUTO) 18.7 K/uL (4.3-11.0)
[2018-12-25 05:38] LABS: CALCIUM, SERUM 7.2 mg/dL (8.5-10.1); CARBON DIOXIDE 19 mmol/L (21-32); CHLORIDE 102 mmol/L (98-107); CREATININE 5.8 mg/dL (0.6-1.3); GLUCOSE 85 mg/dL (74-106); POTASSIUM 4.2 mmol/L (3.5-5.1); SODIUM SERUM 135 mmol/L (136-145)
[2018-12-25 06:03] LABS: PHOSPHORUS 10.1 mg/dL (2.5-4.9); UREA NITROGEN, BLOOD 132 mg/dL (7-18)
[2018-12-25] MEDS: PROPOFOL 100 ML IV PRN ×2 (06:13→22:01)
--- NOTE | 2018-12-25 06:48 | NUR ---
RN NOTES CONTINUE WITH ETT NO ACUTE RESPIRATORY DISTRESS THROUGHOUT THE SHIFT. CONTINUE ON ETT WITH VENT SETTING TOLERATED WELL. AFIB AND A-FLUTTER CONTROLLED. PATIENT SEDATED WITH DIPRIVAN. CONTINUE ON PRESSOR LEVOPHED TITRATED PROTOCOL. IV SITE ON BERNA AND LW INTACT AND PATENT. CONDOM CATH INTACT WITH LOW URINE OUTPUT. CRITICAL LAB PHOS 10.1 AND BUN [address] ALVARADO. AWARE NNO AT THIS TIME MD AWARE THAT NEPHROLOGY ALREADY HAD PLAN TO PATIENT. KEPT PT CLEAN AND DRY. SKIN CARE PROVIDED. PHOTO TAKEN FOR ANY SKIN ISSUES. WILL ENDORSED CONTINUITY OF CARE TO AM NURSE.
[2018-12-25] MEDS: ACETYLCYSTEINE 10% SOLN 400 MG/4 ML VIAL NEB SCH ×3 (06:51→22:46)
--- NOTE | 2018-12-25 06:56 | NUR ---
RT PATIENT REC'D ORALLY INTUBATED ON [facility] VENT WITH ORDERED SETTINGS. VENT ALARMS CHECKED + AUDIBLE. CUFF PRESSURE CHECKED LOG ROPER. PATIENT SUCTIONED WITH MOD AMT OF SECRETIONS WITH MUCUS PLUGS. B/S RIO JOHNSON. AMBU BAG AT [facility]. CONT CURRENT PLAN OF RESP CARE. Addendum: 12/25/18 at 1813 by CASSANDRA GOMEZ RT Amended: Links added.
--- NOTE | 2018-12-25 07:30 | NUR ---
CAR TRACER AM NOTES RECEIVED PT FROM NIGHTSHIFT RN IN STABLE CONDITION. PT INTUBATED, ONGOING PROPOFOL DRIP AT 5MCG/KG/MIN. VENT SETTINGS CHECKED FOR ACCURACY (AC 28, TV 520, FIO2 50%, PEEP 6). PT TOLERATING SETTINGS WELL. PT NOTED TO BE AFIB ON THE TELE MONITOR WITH A HR OF 71. CONDOM CATH NOTED TO BE INTACT AND DRAINING TO GRAVITY, RIGHT UPPER ARM PICC NOTED TO BE C/D/I. PT RECEIVING LEVO DRIP AT 5MCG/MIN. BP STABLE AT THIS TIME. BED IN LOW LOCKED POSITION, SIDE RAILS UP X3, CALL LIGHT WITHIN REACH, BILATERAL SOFT WRIST RESTRAINTS NOTES. GOOD PERIPHERAL PULSES AND CAP REFILL NOTED. WILL CONTINUE TO MONITOR
[2018-12-25] MEDS: ENSURE ENLIVE 237 ML LIQUID (VANILLA) PO SCH ×3 (08:00→17:26)
--- NOTE | 2018-12-25 08:22 | NUR ---
WOUND CARE CONSULT: PT PRESENTS WITH INTACT DEEP TISSUE INJURY TO SACRAL AREA. PT ALSO HAS RT ELBOW SKIN TEAR WITH NO SIGN OF INFECTION, PRESENT ON ADMISSION. PT NOTED TO HAVE MULTIPLE CO-MORBIDITIES INCLUDING ACUTE RESPIRATORY FAILURE (S/P INTUBATION ON 12/21/18), ACUTE RENAL FAILURE WITH GENERALIZED EDEMA, PNUEMONIA, ON PRESSORS AND HISTORY OF COLON CANCER. FIRST STEP LOW AIRLOSS MATTRESS ORDERED. ALL WOUND CARE AND SKIN PROTECTION RECOMMENDATIONS DISCUSSED WITH NURSING STAFF. WILL SEE PRN. VIDAL IN AGREEMENT WITH PLAN OF CARE. Addendum: 12/25/18 at 0825 by MARITZA GUEVARA WNDNU Amended: Links added.
[2018-12-25 08:54] LABS: ABG BASE EXCESS -8.3 mmol/L; ABG OXYGEN SATURATION 93.3 % (92.0-98.5); ABG PCO2 33.3 mmHg (35.0-45.0); ABG PH 7.322 (7.350-7.450); ABG PO2 77.1 mmHg (75.0-100.0); AaDO2 169.8 mmHg; COHb 0.3 % (0.5-1.5); O2Hb 92.1 % (94.0-97.0); SITE, ABG Right Radial
[2018-12-25] MEDS: PANTOPRAZOLE 40 MG VIAL IV SCH ×2 (09:02→21:02)
[2018-12-25] MEDS: CEFTRIAXONE 2 G in IV D5W 100 ML IV SCH (11:52)
[2018-12-25] MEDS: SEVELAMER CARBONATE 0.8 GM POWD.PACK GT SCH ×3 (13:00→17:26)
--- NOTE | 2018-12-25 13:15 | NUR ---
MICA SPLITTER NOTES PLACED A CALL TO KIKI - GIRLFRIEND TO GET CONSENT FOR HD CATH PLACEMENT AND HEMODIALYSIS. NO ANSWER. LEFT A MESSAGE.
--- NOTE | 2018-12-25 13:25 | NUR ---
DELIVERY MAN NOTES UNABLE TO GIVE RENVELA AND ENSURE AT THIS TIME. PER DR. MARTÍNEZ NOT TO PUT ANY OGT OR NGT AT THIS TIME DUE TO RISK OF BLEEDING. DR. Lashanda WERNER NOTIFIED.
--- NOTE | 2018-12-25 13:45 | NUR ---
MANAGER HOME NOTES 2ND CALL TO KIKI - GIRLFRIEND TO GET CONSENT FOR HD CATH PLACEMENT AND HEMODIALYSIS. NO ANSWER. LEFT A MESSAGE.
--- NOTE | 2018-12-25 14:55 | NUR ---
CARBURETOR REPAIRER NOTES DR. PEREIRA ON THE PHONE WITH KIKI Khan PT'S GIRLFRIEND. CONSENT FOR HD CATH AND PLACEMENT AND HD. AGREED AND SIGNED
[2018-12-25] MEDS ORDERED: VANCOMYCIN 500 MG in IV D5W 100 ML IV PRN (15:00)
--- NOTE | 2018-12-25 15:30 | NUR ---
CROCHET MACHINE OPERATOR NOTES DR. PEREIRA AT BEDSIDE. AWARE OF BLOOD TINGE DISCHARGE ON ETT. OKAYED, NO NG OR OGT AT THIS TIME.
--- NOTE | 2018-12-25 20:00 | NUR ---
Received patient intubated on full vent support.Vent settings well tolerated.SPO2 98%. Dx: SEPSIS,PNA,AFIB with RVR and HYPOTENSION.Sedated on Diprivan gtt.A flutter per monitor well controlled.Levophed gtt infusing for BP support and will titrate accordingly. NPO.Condom cath to gravity no urine output noted.Awaiting HD.HD RN in [facility] at this time. Will turn & reposition Q 2 hrs offloading pressure points.Maintained on [employer] mattress.
[2018-12-25] MEDS: NOREPINEPHRINE 16 MG in IV D5W 500 ML IV PRN (21:03)
--- NOTE | 2018-12-25 22:00 | NUR ---
HD started by JILL Varma RN.
--- NOTE | 2018-12-25 23:30 | NUR ---
HD completed.No output.Per Avani,HD RN catheter not working.Will inform in AM.
[2018-12-26] VITALS (104 sets, daily range): BP systolic 64–139; BP diastolic 42–79
--- NOTE | 2018-12-26 | NUR ---
Patient resting in no acute distress.Hemodynamically unstable.Levophed gtt continued. Turned and repositioned.
[2018-12-26] MEDS: IPRATROPIUM NEB FS 0.5 MG/2.5 ML AMPUL.NEB NEB SCH ×4 (01:22→19:27)
[2018-12-26] MEDS: ALBUTEROL HALF STRENGTH 1.25 MG/3 ML VIAL.NEB NEB SCH ×4 (01:22→19:27)
--- NOTE | 2018-12-26 04:00 | NUR ---
Patient bathed and complete linens changed.Oral care done.Perineal care done.Patient oliguric. Condom cath in place.No BM noted.Turned and repositioned.
[2018-12-26 04:35] LABS: BASOPHILS # (AUTO) 0.1 /CMM (0.0-0.2); BASOPHILS % (AUTO) 0.5 % (0.0-2.0); EOSINOPHILS % (AUTO) 0.4 % (0.0-6.0); HEMATOCRIT 23 % (39-51); LYMPHOCYTES # (AUTO) 0.5 /CMM (0.8-4.8); MEAN CORPUSCULAR HGB CONC 34 g/dl (31.0-36.0); MEAN CORPUSCULAR VOLUME 87 fL (80-96); MONOCYTES # (AUTO) 0.6 /CMM (0.1-1.30); MONOCYTES % (AUTO) 3.3 % (2.0-12.0); NEUTROPHILS # (AUTO) 15.5 /CMM (1.8-8.9); NEUTROPHILS % (AUTO) 92.8 % (43.0-81.0); PLATELET COUNT (AUTO) 132 /CMM (150-450); RED BLOOD CELL COUNT(AUTO) 2.69 MIL/uL (4.5-6.0); WHITE BLOOD COUNT (AUTO) 16.8 K/uL (4.3-11.0)
[2018-12-26 05:05] LABS: CALCIUM, SERUM 7.2 mg/dL (8.5-10.1); CARBON DIOXIDE 19 mmol/L (21-32); CHLORIDE 103 mmol/L (98-107); CREATININE 5.7 mg/dL (0.6-1.3); GLUCOSE 87 mg/dL (74-106); POTASSIUM 4.3 mmol/L (3.5-5.1); SODIUM SERUM 139 mmol/L (136-145)
[2018-12-26 05:50] LABS: PHOSPHORUS 10.1 mg/dL (2.5-4.9)
[2018-12-26 05:51] LABS: UREA NITROGEN, BLOOD 126 mg/dL (7-18)
--- NOTE | 2018-12-26 07:00 | NUR ---
Patient AM labs resulted.BUN 126,[id number] called to .No orders received. Endorsed to day shift RN for continuity of care.
[2018-12-26] MEDS: ACETYLCYSTEINE 10% SOLN 400 MG/4 ML VIAL NEB SCH ×3 (07:02→23:14)
--- NOTE | 2018-12-26 07:03 | NUR ---
RECEIVED PT ORALLY INTUBATED ON [facility] VENT WITH NOTED SETTINGS. ETT 7.5 MARKED @ 25 CM LIP. B/S BILATERAL. VENT ALARMS CHECKED AND AUDIBLE. VENT PLUGGED IN RED OUTLET. AMBU BAG NOTED HOB. SX WITH MOD THK PALE YELLOW SECRETIONS. BREATHING TX GIVEN AND NO ADV REACTION. WILL CONTINUE TO MONITOR T/O SHIFT.
--- NOTE | 2018-12-26 07:05 | NUR ---
HAND ROUTER OPERATOR INITIAL NOTES RECEIVED PT FROM NIGHTSMIFT RN IN STABLE CONDITION. PT INTUBATED ON PROPOFOL DRIP AT 15MCG/KG/MIN. VENT SETTINGS CHECKED FOR ACCURACY (AC 28, TV 520, FIO2 40%, PEEP 5). PT TOLERATING SETTINGS WELL. PT NOTED TO BE A-FLUTTER ON THE TELE MONITOR WITH A HR OF 83. CONDOM CATH NOTED TO BE INTACT AND DRAINING TO GRAVITY. RIGHT UPPER ARM PICC NOTED TO BE C/D/I. PT RECEIVING LEVO DRIP AT 7MCG/MIN. BP STABLE AT THIS TIME. BED IN LOW LOCKED POSITION, SIDE RAILS UP X3, CALL LIGHT WITHIN REACH, BILATERAL SOFT WRIST RESTRAINTS NOTED. GOOD PERIPHERAL PULSES AND CAP REFILL NOTED. WILL CONTINUE TO MONITOR
[2018-12-26] MEDS: PROPOFOL 100 ML IV PRN ×2 (07:58→19:07)
[2018-12-26] MEDS: ENSURE ENLIVE 237 ML LIQUID (VANILLA) PO SCH ×3 (08:00→17:43)
[2018-12-26] MEDS: SEVELAMER CARBONATE 0.8 GM POWD.PACK GT SCH ×3 (08:00→17:43)
--- NOTE | 2018-12-26 08:05 | NUR ---
PT PLACED ON SIMV 4 PS 15 40% +5 PER MD ORDER. RN NOTIFIED AND WILL MONITOR.
[2018-12-26] MEDS: PANTOPRAZOLE 40 MG VIAL IV SCH ×2 (08:32→21:32)
--- NOTE | 2018-12-26 08:56 | NUR ---
PLACED BACK ON AC PER MD ORDER.
--- NOTE | 2018-12-26 09:00 | NUR ---
METER TESTER POLYPHASE NOTES: WEANING TRAIL 804: PT PLACED ON SIMV MODE PER MD ORDERS. PROPOFOL TITRATED OFF PER PROTOCOL. PT ABLE TO FOLLOW SIMPLE COMMANDS WHEN PROMPTED. VSS. 0900: DR BOWEN AT BEDSIDE. PT PLACED BACK ON AC MODE PER MD ORDER
--- NOTE | 2018-12-26 09:46 | NUR ---
TOWN JUSTICE NOTES: HD DR. WERNER MADE AWARE OF PT'S MALFUNCTIONING HD CATH IN THE MORNING BY NIGHTSHIFT RN. STATED THE HE WOULD LIKE DIALYSIS NURSE TO REATTEMPT HD. PHONE CALL RECEIVED FROM HD RN WHO WAS UPDATED ON MD'S ORDER AND STATES THAT SHE WILL BE BY TO REATTEMPT
[2018-12-26] MEDS ORDERED: VANCOMYCIN 0.75 GM in IV D5W 250 ML IV SCH (10:00)
[2018-12-26] MEDS: CEFTRIAXONE 2 G in IV D5W 100 ML IV SCH (10:25)
[2018-12-26] MEDS ORDERED: ACETAMINOPHEN 650 MG/SUPP.RECT RC PRN (11:30)
--- NOTE | 2018-12-26 13:00 | NUR ---
REVENUE ACCOUNTING MANAGER NOTES: FLEXI SEAL PT NOTED TO HAVE LIQUID STOOL. ID AND PRIMARY MD MADE AWARE. FLEX SEAL INSERTED PER MD ORDER
--- NOTE | 2018-12-26 18:48 | NUR ---
HYDROMETEOROLOGY TEACHER CLOSING NOTES PT REMAINS STABLE ON VENTILATOR SUPPORT. VITAL SIGNS STABLE AT THIS TIME. INVASIVE LINES REMAIN PATENT AND INTACT. PT REPOSITIONED AND TURNED PER HOSPITAL PROTOCOL. PRN CARE RENDERED. CONDOM CATH REMAINS C/D/I. FLEXI SEAL REMAINS INTACT AND DRAINING LIQUID STOOL. SAFETY MEASURES REMAIN IN PLACE. WILL ENDORSE TO NIGHTSHIFT RN FOR JOSH
--- NOTE | 2018-12-26 19:30 | NUR ---
RN NOTES PATIENT IS ORALLY INTUBATED.OPENS EYES. WITH ETT 7.5/24 CM AT LIP RECEIVED WITH VENT SETTING OF AC 28 TV 520 FIO2 40% PEEP 5 . SATURATION 100%. AFIB AND A-FLUTTER ON TELE MONITOR CONTROLLED. RESPONSIVE TO TACTILE STIMULI. IV SITE ON BERNA PICC LINE WITH DIPRIVAN @ 15 MCG/KG/MIN AND LEVOPHED @ 5 MCG/MIN WILL TITRATED PROTOCOL ORDER. IV SITE ON LFA G 23 HL INTACT AND PATENT. FLEXISEAL ON AND CONDOM CATH. TURNED AND REPOSITIONED PATIENT FOR SKIN SAFETY. KEPT PT CLEAN AND DRY. OFFLOADED EXT WITH PILLOWS. RESTRAINT KEPT IN PLACED.
--- NOTE | 2018-12-26 22:06 | NUR ---
RECEIVED PT INTUBATED 7.5 ETT SECURED AT 25CM AT THE LIP. NO RESP DISTRESS NOTED PT TOLERATING VENT SETTINGS. SX'D FOR MOD AMT OF THICK [place] SECRETIONS. VENT ALARMS SET AND AUDIBLE. ETT CUFF INTERNET CONSULTANT. AMBU BAG AT BEDSIDE. WILL CONTINUE TO MONITOR. Addendum: 12/26/18 at 2206 by RENA MAYA RT Amended: Links added.
--- NOTE | 2018-12-26 23:30 | NUR ---
RN NOTES DIALYSIS NURSE AT BEDSIDE, NO DIALYSIS DONE.
[2018-12-27] VITALS (58 sets, daily range): BP systolic 91–127; BP diastolic 44–66
[2018-12-27] MEDS: ALBUTEROL HALF STRENGTH 1.25 MG/3 ML VIAL.NEB NEB SCH ×4 (00:51→19:30)
[2018-12-27] MEDS: IPRATROPIUM NEB FS 0.5 MG/2.5 ML AMPUL.NEB NEB SCH ×4 (01:00→19:30)
[2018-12-27 04:36] LABS: BASOPHILS % (AUTO) 0.1 % (0.0-2.0); EOSINOPHILS % (AUTO) 0.5 % (0.0-6.0); HEMATOCRIT 22 % (39-51); HEMOGLOBIN 7.3 g/dL (13.5-17.5); LYMPHOCYTES # (AUTO) 0.4 /CMM (0.8-4.8); LYMPHOCYTES % (AUTO) 2.5 % (20.0-44.0); MEAN CORPUSCULAR HGB CONC 34 g/dl (31.0-36.0); MEAN CORPUSCULAR VOLUME 87 fL (80-96); MONOCYTES # (AUTO) 0.5 /CMM (0.1-1.30); MONOCYTES % (AUTO) 2.9 % (2.0-12.0); NEUTROPHILS # (AUTO) 15.3 /CMM (1.8-8.9); PLATELET COUNT (AUTO) 132 /CMM (150-450); RED BLOOD CELL COUNT(AUTO) 2.51 MIL/uL (4.5-6.0); WHITE BLOOD COUNT (AUTO) 16.3 K/uL (4.3-11.0)
[2018-12-27 04:50] LABS: CALCIUM, SERUM 6.9 mg/dL (8.5-10.1); CARBON DIOXIDE 17 mmol/L (21-32); CHLORIDE 101 mmol/L (98-107); CREATININE 6.8 mg/dL (0.6-1.3); GLUCOSE 74 mg/dL (74-106); POTASSIUM 4.7 mmol/L (3.5-5.1); SODIUM SERUM 137 mmol/L (136-145)
[2018-12-27 04:56] LABS: UREA NITROGEN, BLOOD 137 mg/dL (7-18)
--- NOTE | 2018-12-27 07:15 | NUR ---
RN NOTES PATIENT REMAINED IN THE SAME CONDITION. NO SIGNIFICANT CHANGES NOTED. ETT AND VENT SETTING TOLERATED WELL. CONTINUE WITH SEDATION, EYES OPEN, CALM AND COOPERATIVE. OFF FROM LEVOPHED SINCE 2:15 AM AND SBP >90 MMHG. BED BATH DONE KEPT PT CLEAN AND DRY. F/C DRAINED VIA GRAVITY WITH LOW URINE OUTPUT. DIALYSIS STILL NOT DONE ENDORSED CONTINUITY OF CARE TO AM NURSE.
[2018-12-27] MEDS: ENSURE ENLIVE 237 ML LIQUID (VANILLA) PO SCH ×3 (07:19→17:22)
--- NOTE | 2018-12-27 07:55 | NUR ---
MUSIC VIDEO PRODUCER INITIAL NOTES RECEIVED PT FROM NIGHTSHIFT RN IN STABLE CONDITION. PT INTUBATED ON PROPOFOL DRIP AT 10MCG/KG/MIN. VENT SETTINGS CHECKED FOR ACCURACY (AC 28, TV 520, FIO2 40%, PEEP 5). PT TOLERATING SETTINGS WELL. PT NOTED TO BE AFIB (CONTROLLED) ON THE TELE MONITOR WITH A CURRENT HR OF 86. CONDOM CATH NOTED TO BE INTACT AND DRAINING TO GRAVITY. FLEXI SEAL NOTED TO BE DRAINING LIQUID STOOL. RIGHT UPPER ARM PICC NOTED TO BE C/D/I. VSS AT THIS TIME. BED IN LOW LOCKED POSITION, SIDE RAILS UP X3, CALL LIGHT WITHIN REACH, BILATERAL SOFT WRIST RESTRAINTS NOTED. GOOD PERIPHERAL PULSES AND CAP REFILL NOTED. WILL CONTINUE TO MONITOR
--- NOTE | 2018-12-27 07:58 | NUR ---
FLIGHT ATTENDANT NOTES: HD F/U PER NIGHTSHIFT RN, HD WAS NOT COMPLETED LAST NIGHT HD RN WAS UNABLE TO USE PT'S HD CATHETER. NIGHTSHIFT TRUST MAIL CLERK. DR. MARTÍNEZ ON UNIT AND PLACED A CALL TO DR. FELDER WHOM STATES THE HE WILL BE HERE SOMETIME TODAY TO ASSESS CATHETER AND OR REPLACE
[2018-12-27] MEDS: ACETYLCYSTEINE 10% SOLN 400 MG/4 ML VIAL NEB SCH ×3 (07:59→23:07)
[2018-12-27] MEDS: PANTOPRAZOLE 40 MG VIAL IV SCH ×2 (08:09→20:16)
[2018-12-27] MEDS: SEVELAMER CARBONATE 0.8 GM POWD.PACK GT SCH ×3 (08:09→17:22)
[2018-12-27 08:44] LABS: ABG BASE EXCESS -9.4 mmol/L; ABG OXYGEN SATURATION 97.3 % (92.0-98.5); ABG PH 7.322 (7.350-7.450); ABG PO2 119.9 mmHg (75.0-100.0); AaDO2 129.7 mmHg; COHb 0.5 % (0.5-1.5); MetHb 1.2 % (0.0-1.5); O2Hb 95.6 % (94.0-97.0); SITE, ABG Right Radial
[2018-12-27] MEDS: CEFTRIAXONE 2 G in IV D5W 100 ML IV SCH (10:24)
[2018-12-27] MEDS: PROPOFOL 100 ML IV PRN ×2 (10:25→22:48)
[2018-12-27] MEDS ORDERED: MEROPENEM 1 G in IV NS 0.9% 100 ML IV SCH (11:30)
--- NOTE | 2018-12-27 12:30 | NUR ---
ADULT MINISTRIES DIRECTOR NOTES: DR FELDER F/U DR. FELDER CONTACTED IN REGARDS TO HD CATHETER. STATES THAT HE WILL NOT BE ABLE TO COME IN TODAY AND WILL MOST LIKELY BE HERE TOMORROW MORNING AROUND 8AM. DR. WERNER MADE AWARE ALONG WITH MD NI. NO NEW ORDERS AT THIS TIME.
[2018-12-27] MEDS: MEROPENEM 500 MG in IV NS 0.9% 50 ML IV SCH (12:34)
--- NOTE | 2018-12-27 18:47 | NUR ---
TEAROOM HOSTESS CLOSING NOTES PT REMAINS STABLE ON VENTILATOR SUPPORT. VITAL SIGNS STABLE AT THIS TIME. INVASIVE LINES REMAIN PATENT AND INTACT. PT REPOSITIONED AND TURNED PER HOSPITAL PROTOCOL. PRN CARE RENDERED. CONDOM CATH REMAINS C/D/I. FLEXI SEAL REMAINS INTACT AND DRAINING LIQUID STOOL. WOUND AND SKIN CARE RENDERED. SAFETY MEASURES REMAIN IN PLACE. WILL ENDORSE TO NIGHTSHIFT RN FOR JOSH
[2018-12-28] VITALS (43 sets, daily range): BP systolic 91–129; BP diastolic 48–78
[2018-12-28] MEDS: IPRATROPIUM NEB FS 0.5 MG/2.5 ML AMPUL.NEB NEB SCH ×4 (01:09→19:15)
[2018-12-28] MEDS: ALBUTEROL HALF STRENGTH 1.25 MG/3 ML VIAL.NEB NEB SCH ×4 (01:09→19:15)
[2018-12-28 04:53] LABS: BASOPHILS % (AUTO) 0.1 % (0.0-2.0); EOSINOPHILS % (AUTO) 0.1 % (0.0-6.0); HEMATOCRIT 21 % (39-51); LYMPHOCYTES # (AUTO) 0.3 /CMM (0.8-4.8); LYMPHOCYTES % (AUTO) 1.6 % (20.0-44.0); MEAN CORPUSCULAR HGB CONC 34 g/dl (31.0-36.0); MEAN CORPUSCULAR VOLUME 88 fL (80-96); MONOCYTES # (AUTO) 0.3 /CMM (0.1-1.30); MONOCYTES % (AUTO) 1.3 % (2.0-12.0); NEUTROPHILS # (AUTO) 20.5 /CMM (1.8-8.9); NEUTROPHILS % (AUTO) 96.9 % (43.0-81.0); PLATELET COUNT (AUTO) 132 /CMM (150-450); RED BLOOD CELL COUNT(AUTO) 2.34 MIL/uL (4.5-6.0); WHITE BLOOD COUNT (AUTO) 21.2 K/uL (4.3-11.0)
[2018-12-28 05:12] LABS: CALCIUM, SERUM 6.6 mg/dL (8.5-10.1); CARBON DIOXIDE 17 mmol/L (21-32); CHLORIDE 100 mmol/L (98-107); GLUCOSE 78 mg/dL (74-106); SODIUM SERUM 137 mmol/L (136-145)
[2018-12-28 05:24] LABS: CREATININE 7.7 mg/dL (0.6-1.3); UREA NITROGEN, BLOOD 146 mg/dL (7-18)
[2018-12-28 05:26] LABS: HEMOGLOBIN 6.9 g/dL (13.5-17.5)
--- NOTE | 2018-12-28 06:10 | NUR ---
HEELER MACHINE NOTE DR. MARTÍNEZ AT BEDSIDE. NOTIFIED H/H 6.9/20.5. ORDERED TYPE AND SCREEN AND 1 UNIT PRBC. ORDERS NOTED AND CARRIED OUT.
--- NOTE | 2018-12-28 06:23 | NUR ---
RT Pt received intubated w 7.5 ETT secured at 25 cm @ lip line. Pt is on [facility] vent w charted settings and is tolerating well. Alarms are set and audible. Bvm is @ hob. Hhn tx given and pt sx'd w no adverse reactions. No respiratory distress noted t/o shift. Addendum: 12/28/18 at 0626 by LAURA ARANGO RT Amended: Links added.
[2018-12-28 06:32] LABS: LYMPHOCYTES % (MANUAL) 2 % (16-48); MONOCYTES % (MANUAL) 1 % (0-11.0); NEUTROPHILS % (MANUAL) 97 (42-76)
--- NOTE | 2018-12-28 06:47 | NUR ---
MAINFRAME PROGRAMMER NOTE PT REMAINED STABLE DURING SHIFT. NO ACUTE DISTRESS NOTED. VENT SETTINGS WELL TOLERATED AND SATURATING WELL. ALL NEEDS ATTENDED TO PROMPTLY. KEPT CLEAN AND DRY. WILL ENDORSE TO NEXT SHIFT FOR CONTINUITY OF CARE.
--- NOTE | 2018-12-28 07:00 | NUR ---
RN NOTES RECEIVED PT ON BED, INTUBATED, SEDATED , ON PROPOFOL DRIP AT 15 MCG/KG/MIN. TOLERATING CURRENT VENT SETTING WELL, ON TELE SR HR IN 80'S AT THIS TIME, CONDOM CATH AND FLEXI SEAT INTACT, DRINING TO GRAVITY , R UPPER ARM PICC LINE SITE CLEAN, DRY AND INTACT, BED IN LOWEST AND LOCKED POSITION, SIDE RAILS UP X3, CALL LIGHT WITHIN REACH, BILATERAL SOFT WRIST RESTRAINTS ON FOR PT SAFETY, WILL CONTINUE TO MONITOR CLOSELY .
[2018-12-28] MEDS: PROPOFOL 100 ML IV PRN ×2 (07:04→15:51)
[2018-12-28] MEDS: ACETYLCYSTEINE 10% SOLN 400 MG/4 ML VIAL NEB SCH ×2 (07:15→15:54)
[2018-12-28] MEDS: ENSURE ENLIVE 237 ML LIQUID (VANILLA) PO SCH ×2 (08:00→12:25)
[2018-12-28] MEDS: SEVELAMER CARBONATE 0.8 GM POWD.PACK GT SCH ×3 (08:00→17:14)
[2018-12-28] MEDS: PANTOPRAZOLE 40 MG VIAL IV SCH ×2 (08:35→21:08)
--- NOTE | 2018-12-28 08:45 | NUR ---
RN NOTES R NECK JUGULAR HD CATH PLACEMENT DONE BY DR FELDER AT THE BEDSIDE ,STAT CHEST X-RAY ORDERED TO VERIFY PLACEMENT PER MD ORDER . CONTINUE TO MONITOR HD CATH SITE.
--- NOTE | 2018-12-28 10:00 | NUR ---
RN NOTES DR FELDER NOTIFED REGARDING CHEST XRAY RESULT. OK TO USE THE LINE FOR HD PER MD ORDER , AKBAR RN NOTIFIED REGARDING HD .
--- NOTE | 2018-12-28 12:26 | NUR ---
RN NOTES CRISPIN HELD PER DR WERNER'S ORDER .
[2018-12-28] MEDS: MEROPENEM 500 MG in IV NS 0.9% 50 ML IV SCH (12:28)
--- NOTE | 2018-12-28 13:45 | NUR ---
RN NOTES RECEIVING HD AT THIS TIME, ONE UNIT OF PRBC TRANSFUSED WITH HD , NO COMPLICATION NOTED, VSS STABLE .
--- NOTE | 2018-12-28 14:01 | NUR ---
pt getting hemodialysis at this time. breathing tx not given. rn aware Addendum: 12/28/18 at 1402 by YAMILE LONG RT Amended: Links added.
--- NOTE | 2018-12-28 15:47 | NUR ---
RN NOTES R FEMORAL HD CATH REMOVED BY HD NURSE , NO COMPLICATION NOTED , CONTINUE TO MONITOR .
--- NOTE | 2018-12-28 16:00 | NUR ---
RN NOTES NGT INSERTED PER LAST GAS BURNER OPERATOR ORDER, PLACEMENT VERIFIED WITH TWO RNS, DIETITIAN CONSULT ORDERED FOR TF.
--- NOTE | 2018-12-28 16:52 | NUR ---
RN NOTES NO LOOSE BM OUTPUT NOTED FROM FLEXI SEAL , SALESPERSON FLOWERS NOTIFIED. RECTAL TUBE D/SHEILA PER ORDER .
[2018-12-28] MEDS ORDERED: NEPRO 1,000 ML BOTTLE GT PRN (17:00)
[2018-12-28] MEDS: NEPRO 1,000 ML BOTTLE GT PRN (17:13)
--- NOTE | 2018-12-28 17:23 | NUR ---
RT NOTE PT REC'D ORALLY INTUBATED VIA ETT SZ 7.5 SECURED AT 25CM @ THE LIP LINE. PT SHOWS NO SIGNS OF RESP DISTRESS OR SOB. SX'D FOR MINIMAL AMT OF BLOOD TINGED SECRETIONS. ALARMS ARE SET AND AUDIBLE. VENT PLUGGED INTO RED OUTLET. AMBU BAG BEDSIDE. WILL CONTINUE TO MONITOR. Addendum: 12/28/18 at 1728 by YAMILE LONG RT Amended: Links added.
--- NOTE | 2018-12-28 18:30 | NUR ---
RN NOTES PT SEDATED, ON PROPOFOL AT 15MCG/KG/MIN, TOLERATING TF AT 20CC/HR WELL VIA L NARE NGT , NO RESIDUAL NOTED, NO SIGNIFICANT CHANGES NOTED ON THIS SHIFT, WILL ENDORSE TO PLISSE MACHINE OPERATOR HELPER NURSE FOR CONTINUITY OF CARE .
--- NOTE | 2018-12-28 19:17 | NUR ---
PT RECEIVED ORALLY INTUBATED WITH 7.5 ETT SECURED @ 24 CM AT THE LIP ON MECHANICAL VENT W/ NOTED SETTINGS PER MD'S ORDER. PT IS AWAKE AND RESPONDS TO STIMULI. VENT ALARMS CHECKED, VENT PLUGGED INTO RED OUTLET, AMBU BAG AT BEDSIDE. SUCTIONED MODERATE AMOUNT OF PINK TINGED SECRETIONS. Q6 BREATHING TX GIVEN PER MD'S ORDER, NO ADVERSE REACTION NOTED. ETT PATENT AND SECURED. COLLEGE ADMINISTRATOR CUFF PRESSURE NOTED. NO RESPIRATORY DISTRESS NOTED AT THIS TIME . WILL CONTINUE TO MONITOR THE PT.
--- NOTE | 2018-12-28 19:30 | NUR ---
PICKER/PULLER NOTE RECEIVED PT INTUBATED AND SEDATED. AROUSABLE AND OPENS EYES TO NAME. ETT IN PLACE. ON MECH VENT WITH SETTINGS WELL TOLERATED AND SATURATING WELL. HOB ELEVATED AND ON ASPIRATION PRECAUTIONS. IV BERNA PICC CLEAN WITH DIPRIVAN INFUSING. R IJ HD CATH SECURED IN PLACE. WILL CONTINUE TO MONITOR.
[2018-12-29] VITALS (97 sets, daily range): BP systolic 68–135; BP diastolic 42–74
[2018-12-29] MEDS: PROPOFOL 100 ML IV PRN ×4 (00:25→21:40)
[2018-12-29] MEDS: ALBUTEROL HALF STRENGTH 1.25 MG/3 ML VIAL.NEB NEB SCH ×4 (00:38→19:14)
[2018-12-29] MEDS: IPRATROPIUM NEB FS 0.5 MG/2.5 ML AMPUL.NEB NEB SCH ×4 (00:38→19:14)
[2018-12-29] MEDS: ACETYLCYSTEINE 10% SOLN 400 MG/4 ML VIAL NEB SCH ×3 (00:38→13:27)
[2018-12-29 05:01] LABS: BASOPHILS % (AUTO) 0.2 % (0.0-2.0); EOSINOPHILS % (AUTO) 0.3 % (0.0-6.0); HEMATOCRIT 22 % (39-51); HEMOGLOBIN 7.7 g/dL (13.5-17.5); LYMPHOCYTES # (AUTO) 0.3 /CMM (0.8-4.8); LYMPHOCYTES % (AUTO) 2.3 % (20.0-44.0); MEAN CORPUSCULAR HGB CONC 35 g/dl (31.0-36.0); MEAN CORPUSCULAR VOLUME 87 fL (80-96); MONOCYTES # (AUTO) 0.2 /CMM (0.1-1.30); MONOCYTES % (AUTO) 1.6 % (2.0-12.0); NEUTROPHILS # (AUTO) 13.8 /CMM (1.8-8.9); NEUTROPHILS % (AUTO) 95.6 % (43.0-81.0); PLATELET COUNT (AUTO) 130 /CMM (150-450); RED BLOOD CELL COUNT(AUTO) 2.56 MIL/uL (4.5-6.0); WHITE BLOOD COUNT (AUTO) 14.4 K/uL (4.3-11.0)
[2018-12-29 05:12] LABS: CARBON DIOXIDE 21 mmol/L (21-32); CHLORIDE 103 mmol/L (98-107); CREATININE 5.1 mg/dL (0.6-1.3); GLUCOSE 80 mg/dL (74-106); POTASSIUM 4.1 mmol/L (3.5-5.1); SODIUM SERUM 139 mmol/L (136-145)
[2018-12-29 05:15] LABS: UREA NITROGEN, BLOOD 88 mg/dL (7-18)
--- NOTE | 2018-12-29 05:30 | NUR ---
CARTON LETTERING MACHINE OPERATOR NOTE DIALYSIS NURSE AT BEDSIDE.
[2018-12-29] MEDS ORDERED: ALBUMIN 25% 25 GM in PREMIX 1 EA IV PRN (07:00)
--- NOTE | 2018-12-29 07:10 | NUR ---
LICENSED REACTOR OPERATOR NOTE NO ACUTE DISTRESS NOTED. REMAINED STABLE DURING SHIFT. ALL NEEDS ATTENDED TO PROMPTLY. VENT SETTINGS WELL TOLERATED. KEPT CLEAN AND DRY. DIALYSIS REMAINS AT BEDSIDE. WILL ENDORSE TO NEXT SHIFT FOR CONTINUITY OF CARE.
--- NOTE | 2018-12-29 07:35 | NUR ---
WOUND CARE FOLLOWUP: PT ON DIALYSIS AT THIS TIME. WILL SEE PT FOR SKIN ASSESSMENT PT CONDITION PERMITS.
--- NOTE | 2018-12-29 07:50 | NUR ---
LITIGATION DOCKET MANAGER: pt.is getting HD, SBP was around 90 by report, got Albumin with HD, now SBP is 90-100, SR and Afib multiple converted, pt.is sedated well with 20 mcg/kg/m Diprivan now, on wrists restraints, O2sat. over 95%, NGTF residual WNL, no pressor now
--- NOTE | 2018-12-29 08:15 | NUR ---
SENIOR CLINICAL SAS PROGRAMMER: pt is with rectal flexiseal tube d/t diarrhea by report for sacral wounds protection, Lizzy,wound care nurse evaluated pt. wounds too, see new orders
--- NOTE | 2018-12-29 08:45 | NUR ---
TEMPLE MEAT CUTTER: HD is done, 2.3L out, tolerated well, Diprivan 20 mcg/kg/m gtt now, pt.is able to open eyes for seconds by touch, rest, no grimacing, no SOB, SBP is over 90, SR - Afib, O2sat. over 96%, suctioned well, pt.daughter is in room/notified re pt status, VS, I/O, GTF, sedation level, orders, HD, MD crystalys, POC
[2018-12-29] MEDS: PANTOPRAZOLE 40 MG VIAL IV SCH ×2 (08:50→21:00)
[2018-12-29] MEDS: SEVELAMER CARBONATE 0.8 GM POWD.PACK GT SCH ×3 (08:50→18:21)
--- NOTE | 2018-12-29 10:14 | NUR ---
CREWMAN MAIN BATTLE TANK: afib HR 135-140, EKG stat ordered before call to power plant electrician, SBP 85-90, will start Levophed gtt/prn
--- NOTE | 2018-12-29 10:24 | NUR ---
PROJECT MANAGEMENT PROFESSOR: EKG done: ST, SBP 85-90/called to pharmacy for Levophed gtt
--- NOTE | 2018-12-29 10:36 | NUR ---
WOUND CARE FOLLOWUP: PT SEEN FOR FOLLOW UP OF SACRAL INTACT DEEP TISSUE INJURY. DEEP TISSUE INJURY REMAINS INTACT. PT HAS RECTAL TUBE WITH LIQUID STOOL. INCONTINENCE ASSOCIATED SKIN DAMAGE NOTED TO PERIANAL AREA AROUND RECTAL TUBE. RECOMMENDATIONS MADE FOR SKIN PROTECTION. DISCUSSED WITH NURSING STAFF. PT REMAINS INTUBATED WITH MULTIPLE CO-MORBIDITIES INCLUDING TACHYCARDIA, RENAL FAILURE (ON DIALYSIS) WITH GENERALIZED EDEMA, WEEPING EDEMA TO LEFT ARM. WILL SEE PRN. PT ON FIRST STEP [facility]. Addendum: 12/29/18 at 1039 by MARITZA GUEVARA WNDNU Amended: Links added.
[2018-12-29] MEDS: NOREPINEPHRINE 16 MG in IV D5W 500 ML IV PRN (10:52)
--- NOTE | 2018-12-29 11:45 | NUR ---
RAILWAY SWITCH OPERATOR: is in room, updated with pt.current condition, VS, sedation level, Levophed gtt, suctions amount, I/O, HD, NGTF, ST/afib, see new orders
[2018-12-29] MEDS ORDERED: DOSE PER PHARMACY MICAFUNGIN 1 EA XX PRN (12:00)
--- NOTE | 2018-12-29 12:00 | NUR ---
ACCOUNT SERVICES ASSOCIATE: is in room, updated with all above, see new orders
[2018-12-29] MEDS: MEROPENEM 500 MG in IV NS 0.9% 50 ML IV SCH (12:06)
[2018-12-29] MEDS: LINEZOLID RTU BAG 600 MG in PREMIX 1 EA IV SCH ×2 (12:28→21:00)
[2018-12-29] MEDS: MICAFUNGIN SODIUM 100 MG in IV NS 0.9% 100 ML IV SCH (13:21)
--- NOTE | 2018-12-29 13:33 | NUR ---
PT RECEIVED ORALLY INTUBATED IN ICU ON MECHANICAL VENT W/ SETTINGS PER MD. VENT IN RED OUTLET, VENT ALARMS CHECKED AND AUDIBLE. ETT PATENT AND SECURED W/ ANCHOFAST. RESEARCH STAFF MEMBER DONE. BREATH SOUNDS EQUAL, DIMINISHED. PT SX'ED AND LAVAGED PRN. NO RESP DISTRESS NOTED. PT TOLERATES CURRENT VENT SETTINGS. PLAN IS CONTINUE CARE UNDER CURRENT MD ORDERS AND MONITOR FOR CHANGES. Addendum: 12/29/18 at 1333 by JESSICA VENEGAS RT Amended: Links added.
--- NOTE | 2018-12-29 14:00 | NUR ---
PRODUCTION BORING MACHINE OPERATOR: Marv, FISH EGG PACKER is in room, updated with pt.current status, VS, Levophed gtt, sedation, HD, I/O, NGTF, labs, Albumin 1.4, ST up to 140 episodes/afib, see new orders
--- NOTE | 2018-12-29 18:26 | NUR ---
ASSISTANT SPEECH LANGUAGE PATHOLOGIST: pt.is rest, sedated well, can open eyes by touch, SR/afib 80-90, SBP over 90, continue titrate Levo gtt, O2sat. WNL, no SOB, PM,skin,wound care done
--- NOTE | 2018-12-29 19:17 | NUR ---
RT NOTE PATIENT RECEIVED ON AC 28, 520, 40%, +5. CUFF CHECKED VIA LINSEED CAKE TRIMMER. VENT PLUGGED INTO RED OUTLET. 7.5 ETT TUBE @ 25CM ON RIGHT. AMBU BAG @ HOB. TX GIVEN, NO ADVERSE REACTIONS NOTED. SX DONE, ET TUBE SECURED AND PATENT. ALARMS ON AND AUDIBLE. PATIENT STABLE AT THIS TIME. Addendum: 12/29/18 at 1920 by TERI BRONSON RT Amended: Links added.
--- NOTE | 2018-12-29 20:00 | NUR ---
EMT DISPATCHER LEVOPHED TITRATED OFF AT THIS TIME 103/58. CONTINUE TO MONITOR.
--- NOTE | 2018-12-29 22:00 | NUR ---
SPOOL CLEANER BP 87/53 LEVOPHED RESTARTED AT THIS TIME. CONTINUE TO MONITOR.
[2018-12-30] VITALS (74 sets, daily range): BP systolic 87–153; BP diastolic 50–81
[2018-12-30] MEDS: ALBUTEROL HALF STRENGTH 1.25 MG/3 ML VIAL.NEB NEB SCH ×4 (00:43→19:40)
[2018-12-30] MEDS: IPRATROPIUM NEB FS 0.5 MG/2.5 ML AMPUL.NEB NEB SCH ×4 (00:43→19:40)
[2018-12-30] MEDS: ACETYLCYSTEINE 10% SOLN 400 MG/4 ML VIAL NEB SCH ×4 (00:43→23:45)
--- NOTE | 2018-12-30 01:00 | NUR ---
RT NOTE MOVED ET TUBE TO THE LEFT. ORAL SUCTION DONE. PATIENT STABLE AT THIS TIME.
[2018-12-30] MEDS: NEPRO 1,000 ML BOTTLE GT PRN (02:10)
[2018-12-30] MEDS: PROPOFOL 100 ML IV PRN (04:02)
[2018-12-30 05:03] LABS: BASOPHILS # (AUTO) 0.1 /CMM (0.0-0.2); BASOPHILS % (AUTO) 0.7 % (0.0-2.0); EOSINOPHILS % (AUTO) 0.8 % (0.0-6.0); HEMATOCRIT 21 % (39-51); HEMOGLOBIN 7.5 g/dL (13.5-17.5); LYMPHOCYTES # (AUTO) 0.4 /CMM (0.8-4.8); LYMPHOCYTES % (AUTO) 3.6 % (20.0-44.0); MEAN CORPUSCULAR HGB CONC 35 g/dl (31.0-36.0); MEAN CORPUSCULAR VOLUME 86 fL (80-96); MONOCYTES # (AUTO) 0.3 /CMM (0.1-1.30); MONOCYTES % (AUTO) 2.8 % (2.0-12.0); NEUTROPHILS # (AUTO) 10.6 /CMM (1.8-8.9); NEUTROPHILS % (AUTO) 92.1 % (43.0-81.0); PLATELET COUNT (AUTO) 128 /CMM (150-450); RED BLOOD CELL COUNT(AUTO) 2.49 MIL/uL (4.5-6.0); WHITE BLOOD COUNT (AUTO) 11.5 K/uL (4.3-11.0)
--- NOTE | 2018-12-30 05:10 | NUR ---
RATE ENGINEER PT NOTED TO BE NSR. CONTINUE TO MONITOR.
[2018-12-30 05:13] LABS: CALCIUM, SERUM 7.3 mg/dL (8.5-10.1); CARBON DIOXIDE 27 mmol/L (21-32); CHLORIDE 100 mmol/L (98-107); GLUCOSE 120 mg/dL (74-106); POTASSIUM 3.9 mmol/L (3.5-5.1); SODIUM SERUM 136 mmol/L (136-145); UREA NITROGEN, BLOOD 62 mg/dL (7-18)
[2018-12-30 05:52] LABS: LYMPHOCYTES % (MANUAL) 6 % (16-48); MONOCYTES % (MANUAL) 2 % (0-11.0); NEUTROPHILS % (MANUAL) 92 (42-76)
--- NOTE | 2018-12-30 06:58 | NUR ---
WAITER/WAITRESS BAR UNABLE TO TITRATE LEVOPHED OFF; PT REMAINED ON 1 MCG/MIN. CONTINUE TO MONITOR.
--- NOTE | 2018-12-30 07:45 | NUR ---
INVERTEBRATE PALEONTOLOGIST: pt is sedated well with Diprivan 25 mcg/kg/m, rest, on wrist restraints, can open eyes by touch, SR now, SBP 104, stopped Levophed gtt, NGTF residual WNL, O2sat. over 96%, no SOB, Hb 7.5, suctioned well, was in unit/updated, plan: will stop sedation, SIMV mode today
--- NOTE | 2018-12-30 07:58 | NUR ---
RT NOTE PER MD WEANING ORDERS, PLACED PT ON SIMV
--- NOTE | 2018-12-30 08:00 | NUR ---
BOILERMAKER LOFTSMAN: still loose stool/diarrhea via flexiseal tube, perineal, sacral multiple excoriations, sacral DTI, pt needs continue rectal tube
[2018-12-30] MEDS: SEVELAMER CARBONATE 0.8 GM POWD.PACK GT SCH ×3 (08:17→17:48)
[2018-12-30] MEDS: PANTOPRAZOLE 40 MG VIAL IV SCH ×2 (08:17→20:30)
[2018-12-30] MEDS: LINEZOLID RTU BAG 600 MG in PREMIX 1 EA IV SCH ×2 (08:18→20:30)
--- NOTE | 2018-12-30 08:18 | NUR ---
RT NOTE PATIENT RECEIVED ON AC 28, 520, 40%, +5. CUFF CHECKED VIA ACID CHANGER. VENT PLUGGED INTO RED OUTLET. 7.5 ETT TUBE @ 25CM ON RIGHT. AMBU BAG @ HOB. TX GIVEN, NO ADVERSE REACTIONS NOTED. SX DONE, ET TUBE SECURED AND PATENT. ALARMS ON AND AUDIBLE. PATIENT STABLE AT THIS TIME.
--- NOTE | 2018-12-30 08:34 | NUR ---
AUTOMATIC BUFFER: pt.is tolerated well for SIMV mode, no SOB, reactive with eyes contact, still weak, O2sat. over 94%, SR, Levophed is off, smocker is in unit/going to see pt.
[2018-12-30 08:50] LABS: ABG BASE EXCESS 2.5 mmol/L; ABG OXYGEN SATURATION 97.1 % (92.0-98.5); ABG PCO2 34.4 mmHg (35.0-45.0); ABG PH 7.493 (7.350-7.450); ABG PO2 115.7 mmHg (75.0-100.0); AaDO2 129.9 mmHg; COHb 0.3 % (0.5-1.5); MetHb 1.8 % (0.0-1.5); O2Hb 95.1 % (94.0-97.0); SITE, ABG Right Radial
--- NOTE | 2018-12-30 09:00 | NUR ---
MANAGER BUDGET: is in room, updated with pt.current condition, history, VS, ABG on SIMV, suctions amount, I/O, NGTF, labs, said: start CPAP after HD, RT is aware/spoke with MD, HD nurse updated with all above
--- NOTE | 2018-12-30 09:30 | NUR ---
BEHAVIORAL SCIENCES DEPARTMENT CHAIR: is in room, updated with VS, SIMV mode now, NGTF, I/O, labs, spoke with HD nurse
--- NOTE | 2018-12-30 11:11 | NUR ---
AGRICULTURAL MECHANIC: pt.is tolerated well for HD, SIMV mode, SR, SBP over 90, O2sat. WNL
--- NOTE | 2018-12-30 11:50 | NUR ---
CRYPTOGRAPHIC CENTER SPECIALIST: ZARIA Fair is in room, updated with pt.current status, SIMV mode on, VS, NGTF, I/O, HD, labs, orders, ABG, see new orders
[2018-12-30] MEDS: MEROPENEM 500 MG in IV NS 0.9% 50 ML IV SCH (12:02)
--- NOTE | 2018-12-30 12:30 | NUR ---
RT NOTE PLACED PT ON CPAP DUE TO MD WEANING ORDER, WILL MONITOR CLOSELY
[2018-12-30] MEDS: MICAFUNGIN SODIUM 100 MG in IV NS 0.9% 100 ML IV SCH (12:59)
--- NOTE | 2018-12-30 13:14 | NUR ---
INSTITUTIONAL RESEARCH COORDINATOR: pt is on CPAP mode now, tolerated well, awake, good eyes contact, rest, can follow simple commands, but still very weak, O2 sat. WNL, ST 100-110, SBP over 100, no SOB, ID PROPELLER LAYOUT WORKER updated, pt.girlfriend called/updated with POC
[2018-12-30 14:05] LABS: ABG BASE EXCESS 4.4 mmol/L; ABG OXYGEN SATURATION 88.1 % (92.0-98.5); ABG PCO2 47.3 mmHg (35.0-45.0); ABG PH 7.413 (7.350-7.450); ABG PO2 60.3 mmHg (75.0-100.0); AaDO2 170.5 mmHg; COHb 0.5 % (0.5-1.5); MetHb 1.1 % (0.0-1.5); O2Hb 86.7 % (94.0-97.0); SITE, ABG Right Radial
--- NOTE | 2018-12-30 14:15 | NUR ---
FILM CRITIC: RT got ABG on CPAP mode and notified /ordered: extubation
--- NOTE | 2018-12-30 14:28 | NUR ---
RT NOTE PT STABLE WITH STABLE VITAL SIGNS, PT AWAKE ALERT FOLLOWS COMMANDS, DR, ORDERED ABG, DUE TO ABG RESULTS, AND PTS VITAL SIGNS, DR ORDERED TO EXTUBATE. PT TOLERATING WELL WILL CONTINUE TO MONITOR CLOSELY
[2018-12-30] MEDS ORDERED: DC PROPOFOL WHEN EXTUBATED XX PRN (14:30)
--- NOTE | 2018-12-30 14:33 | NUR ---
COLLEGE SPECIALIST: pt is extubated, O2sat. 94-96% on 4L n/c now, no SOB, can speak, ST 100-110, SBP over 100 below 150, no any pain
--- NOTE | 2018-12-30 18:29 | NUR ---
HOSPITALIST NOCTURNIST PHYSICIAN: pt is A/Ox2, rest, no c/o, no pain, can follow commands, but still very weak, SR/ST, BP WNL, O2sat. over 94%, PM,skin,wounds care done
--- NOTE | 2018-12-30 19:30 | NUR ---
URBAN GARDENING SPECIALIST PT RCD S/P EXTUBATION TODAY ON 4L NC; SATURATION WNL. NO RESP DIST NOTED. NSR ON MONITOR. PT ABLE TO FOLLOW SIMPLE COMMANDS. SPEECH NOTED SOMEWHAT HOARSE HOWEVER PT IS ABLE TO MAKE NEEDS KNOWN.
--- NOTE | 2018-12-30 20:00 | NUR ---
GAS LINE INSTALLER SUPERVISOR PT FRIEND, KIKI, AT BEDSIDE.
[2018-12-30] MEDS: IV NS 0.9% 250 ML IV PRN (21:00)
--- NOTE | 2018-12-30 22:00 | NUR ---
LIGHT RAIL SIGNAL TECHNICIAN PT TURNED AND REPOSITIONED. TOLERATED WELL. ORAL CARE RENDERED. NO RESP DIST NOTED. CONTINUE TO MONITOR.
[2018-12-31] VITALS (35 sets, daily range): BP systolic 76–158; BP diastolic 44–80
[2018-12-31] MEDS: IPRATROPIUM NEB FS 0.5 MG/2.5 ML AMPUL.NEB NEB SCH ×4 (01:30→19:15)
[2018-12-31] MEDS: ALBUTEROL HALF STRENGTH 1.25 MG/3 ML VIAL.NEB NEB SCH ×4 (01:30→19:16)
[2018-12-31 04:44] LABS: BASOPHILS % (AUTO) 0.4 % (0.0-2.0); EOSINOPHILS % (AUTO) 0.2 % (0.0-6.0); HEMATOCRIT 24 % (39-51); HEMOGLOBIN 8.1 g/dL (13.5-17.5); LYMPHOCYTES # (AUTO) 0.3 /CMM (0.8-4.8); LYMPHOCYTES % (AUTO) 2.6 % (20.0-44.0); MEAN CORPUSCULAR HGB CONC 34 g/dl (31.0-36.0); MEAN CORPUSCULAR VOLUME 86 fL (80-96); MONOCYTES # (AUTO) 0.3 /CMM (0.1-1.30); NEUTROPHILS # (AUTO) 10.5 /CMM (1.8-8.9); NEUTROPHILS % (AUTO) 93.8 % (43.0-81.0); PLATELET COUNT (AUTO) 102 /CMM (150-450); RED BLOOD CELL COUNT(AUTO) 2.76 MIL/uL (4.5-6.0); WHITE BLOOD COUNT (AUTO) 11.2 K/uL (4.3-11.0)
[2018-12-31 04:56] LABS: CALCIUM, SERUM 8.1 mg/dL (8.5-10.1); CARBON DIOXIDE 29 mmol/L (21-32); CHLORIDE 98 mmol/L (98-107); CREATININE 3.5 mg/dL (0.6-1.3); GLUCOSE 104 mg/dL (74-106); POTASSIUM 3.8 mmol/L (3.5-5.1); SODIUM SERUM 135 mmol/L (136-145); UREA NITROGEN, BLOOD 53 mg/dL (7-18)
--- NOTE | 2018-12-31 06:52 | NUR ---
MUTUAL FUNDS AGENT PT REMAINED ALERT ABLE TO FOLLOW SIMPLE COMMANDS. O2 2L NC. NO DISTRESS NOTED. TOLERATED Q2HR TURNING AND BED BATH. RENDERED ORAL CARE NEEDED.
[2018-12-31] MEDS: ACETYLCYSTEINE 10% SOLN 400 MG/4 ML VIAL NEB SCH ×2 (06:58→12:54)
[2018-12-31] MEDS: ACETAMINOPHEN 325 MG TABLET PO PRN (09:38)
[2018-12-31] MEDS: SEVELAMER CARBONATE 0.8 GM POWD.PACK GT SCH ×3 (09:38→17:29)
[2018-12-31] MEDS: LINEZOLID RTU BAG 600 MG in PREMIX 1 EA IV SCH (09:38)
[2018-12-31] MEDS: PANTOPRAZOLE 40 MG VIAL IV SCH ×2 (09:39→20:37)
[2018-12-31] MEDS: MEROPENEM 500 MG in IV NS 0.9% 50 ML IV SCH (13:16)
[2018-12-31] MEDS: MICAFUNGIN SODIUM 100 MG in IV NS 0.9% 100 ML IV SCH (13:17)
[2018-12-31] MEDS: NEPRO 1,000 ML BOTTLE GT PRN (13:26)
--- NOTE | 2018-12-31 17:00 | NUR ---
FULL BED BATH, ORAL CARE AND SKIN CARE PROVIDED. PERIANAL INCONTINENCE ASSOCIATED DERMATANS AND FLEXI-SEAL IN PLACE, SKIN IS FRAGILE AND OPENS UP, PROTECTED WITH MEPILEX WILL ASK WOUNDCARE CONSULT FOR RE- EVAL.
--- NOTE | 2018-12-31 19:30 | NUR ---
HEALTH SCIENCES MANAGER RCD PT W/DX AFIB; EXTUBATED 12/30 ON O2 4L NC; TOLERATING WELL. ST ON MONITOR. PT DENIES PAIN. RENDERED ORAL CARE. LEFT NARE NG TUBE IN PLACE. TUBE FEEDING OFF AT THIS TIME PREVIOUS NURSE STATED SHE SAW TUBE FEEDING INSIDE PTS MOUTH. PENDING SWALLOW EVAL FOR TOMORROW. CONTINUE TO MONITOR.
--- NOTE | 2018-12-31 20:16 | NUR ---
PRORATE CLERK ASIF SWANSON AT BEDSIDE UPDATED WITH PLAN OF CARE.
--- NOTE | 2018-12-31 23:13 | NUR ---
ICU PT HAS STRONG COUGH ABLE TO COUGH UP PHLEGM; PROVIDED ORAL CARE. PT REMAINS ON O2 4L NC.
[2019-01-01] VITALS (27 sets, daily range): BP systolic 75–153; BP diastolic 54–84
[2019-01-01] MEDS: ACETYLCYSTEINE 10% SOLN 400 MG/4 ML VIAL NEB SCH ×4 (00:25→23:42)
[2019-01-01] MEDS: ALBUTEROL HALF STRENGTH 1.25 MG/3 ML VIAL.NEB NEB SCH ×4 (00:25→19:30)
[2019-01-01] MEDS: IPRATROPIUM NEB FS 0.5 MG/2.5 ML AMPUL.NEB NEB SCH ×4 (00:25→19:30)
[2019-01-01 04:35] LABS: BASOPHILS % (AUTO) 0.3 % (0.0-2.0); EOSINOPHILS % (AUTO) 0.6 % (0.0-6.0); HEMATOCRIT 26 % (39-51); HEMOGLOBIN 8.5 g/dL (13.5-17.5); LYMPHOCYTES # (AUTO) 0.3 /CMM (0.8-4.8); LYMPHOCYTES % (AUTO) 2.3 % (20.0-44.0); MEAN CORPUSCULAR HGB CONC 33 g/dl (31.0-36.0); MEAN CORPUSCULAR VOLUME 88 fL (80-96); MONOCYTES # (AUTO) 0.5 /CMM (0.1-1.30); MONOCYTES % (AUTO) 3.7 % (2.0-12.0); NEUTROPHILS # (AUTO) 12.4 /CMM (1.8-8.9); NEUTROPHILS % (AUTO) 93.1 % (43.0-81.0); PLATELET COUNT (AUTO) 93 /CMM (150-450); RED BLOOD CELL COUNT(AUTO) 2.93 MIL/uL (4.5-6.0); WHITE BLOOD COUNT (AUTO) 13.3 K/uL (4.3-11.0)
[2019-01-01 04:53] LABS: CALCIUM, SERUM 8.2 mg/dL (8.5-10.1); CARBON DIOXIDE 27 mmol/L (21-32); CHLORIDE 97 mmol/L (98-107); CREATININE 4.5 mg/dL (0.6-1.3); GLUCOSE 91 mg/dL (74-106); SODIUM SERUM 134 mmol/L (136-145); UREA NITROGEN, BLOOD 66 mg/dL (7-18)
--- NOTE | 2019-01-01 07:49 | NUR ---
INITIAL TALENT ADVISOR NOTE RCVD PT AWAKE, DISORIENTED, NOT FOLLOWING COMMANDS AT THIS TIME, ST ON MONITOR, TOLERATING O2 VIA NASAL CANNULA, UNABLE TO CLEAR SECRETIONS INDEPENDENTLY REQUIRING NASOGASTRIC AND ORAL SUCTIONING. NG-TUBE PLACEMENT VERIFIED BY AUSCULTATION/ASPIRATION OF GASTRIC CONTENTS ABOUT 45 ML TUBE FEEDING RESIDUAL OBTAINED, FLEXISEAL IN PLACE, NO LEAKING OBSERVED, DRAINING GREEN, LIQUID STOOL., BERNA PICC C/D/I/PATENT, NO S/O INFILTRATION/PHLEBITIS OBSERVED UPON FLUSHING. WILL CONTINUE TO MONITOR PT FOR SAFETY AND COMFORT. BED IN LOW AND LOCKED POSITION. CALL LIGHT WITHIN REACH, HEAD OF BED ELEVATED.
[2019-01-01] MEDS: PANTOPRAZOLE 40 MG VIAL IV SCH ×2 (08:01→22:43)
[2019-01-01] MEDS: PROSOURCE / PROSTAT (PYXIS) 30 ML UDC PO SCH (08:01)
[2019-01-01] MEDS: SEVELAMER CARBONATE 0.8 GM POWD.PACK GT SCH ×3 (08:01→17:18)
--- NOTE | 2019-01-01 08:25 | NUR ---
WOUND CARE CONSULT/FOLLOWUP: PT SEEN FOR SACRAL DEEP TISSUE INJURY WHICH IS NOW IN EVOLUTION. RASH AND INCONTINENCE ASSOCIATED SKIN DAMAGE NOTED TO PERIANAL/PERINEAL AREAS AND LOWER BUTTOCKS WELL. PT INCONTINENT OF SOME URINE. RECTAL TUBE REMAINS IN PLACE WITH LIQUID STOOL. GENERALIZED EDEMA NOTED INCLUDING SCROTAL EDEMA. RECOMMENDATIONS MADE FOR SKIN PROTECTION AND WOUND CARE. DISCUSSED WITH NURSING STAFF. PT ON FIRST STEP LOW AIRLOSS MATTRESS. PT PREVIOUSLY EXTUBATED. WILL SEE PRN. VIDAL IN AGREEMENT WITH PLAN OF CARE. Addendum: 01/01/19 at 0828 by MARITZA GUEVARA WNDNU Amended: Links added.
[2019-01-01] MEDS ORDERED: HYDROGEL DRESSING 90 GM TUBE TP PRN (08:30)
[2019-01-01] MEDS ORDERED: DILTIAZEM HCL CD 240 MG PO SCH (09:00)
[2019-01-01 09:11] LABS: ABG BASE EXCESS 0.9 mmol/L; ABG OXYGEN SATURATION 88.4 % (92.0-98.5); ABG PCO2 41.2 mmHg (35.0-45.0); ABG PH 7.411 (7.350-7.450); AaDO2 150.9 mmHg; COHb 0.6 % (0.5-1.5); MetHb 0.7 % (0.0-1.5); O2Hb 87.3 % (94.0-97.0); SITE, ABG Right Radial; VENT MODE, BG N/C
[2019-01-01] MEDS: CLOTRIMAZOLE 1% 15 GM TUBE TP SCH ×2 (09:55→17:19)
[2019-01-01] MEDS: HYDROGEL DRESSING 90 GM TUBE TP SCH (09:55)
[2019-01-01] MEDS: DILTIAZEM HCL 30 MG TABLET NG SCH ×3 (12:10→23:15)
[2019-01-01] MEDS: MEROPENEM 500 MG in IV NS 0.9% 50 ML IV SCH (12:10)
[2019-01-01] MEDS: ACETAMINOPHEN 325 MG TABLET PO PRN (12:47)
[2019-01-01] MEDS: IV NS 0.9% 250 ML IV PRN (12:48)
[2019-01-01] MEDS: MICAFUNGIN SODIUM 100 MG in IV NS 0.9% 100 ML IV SCH (12:48)
[2019-01-01] MEDS: NEPRO 1,000 ML BOTTLE GT PRN (12:49)
--- NOTE | 2019-01-01 13:39 | NUR ---
METAL ROASTER NOTE PT REMAINED TACHYCARDIC (140's) DESPITE CARDIZEM STARTED, AFEBRILE, UPON ASSESSMENT PT'S LOWER ABDOMEN WAS TENDER TO TOUCH, BLADDER SCAN DONE SHOWING > [address] KAMARA AND [address] BOWEN WERE NOTIFIED AND ORDER TO INSERT OWUSU WAS RECEIVED. ~1400ML URINE WERE FOUND AND REPORTED TO BOTH MDs. WILL CONTINUE TO MONITOR PT. HR IMPROVED POST-OWUSU INSERTION.
--- NOTE | 2019-01-01 19:08 | NUR ---
VIDEO OPERATOR NOTE PT REMAINS STABLE, NO S/O DISTRESS OBSERVED, PT'S CARE ENDORSED TO ROULA PEREZ FOR CONTINUITY OF CARE. BED IN LOW AND LOCKED POSITION, HEAD OF BED ELEVATED, CALL LIGHT WITHIN REACH, BILATERAL HEELS OFFLOADED.
--- NOTE | 2019-01-01 19:30 | NUR ---
RERECORDING MIXER INITIAL SHIFT NOTES RECEIVED PATIENT IN BED, AWAKE, ALERT AND ORIENTED X1 TO SELF. BREATHING EVEN AND NONLABORED, WITH SLIGHT TACHYPNEA, 29 BREATHS PER MINUTE. PATIENT'S HR = 119 BPM, SR. LEFT NARE NGT PATENT AND INTACT, TUBE FEEDING ONGOING AT PRESCRIBED RATE, TOLERATING WELL, NO GASTRIC RESIDUALS NOTED AT THIS TIME. BERNA PICC PATENT AND INTACT, ALL PORTS FLUSHED WITH NS. RIJ DRESSING CLEAN AND INTACT, NO BLEEDING NOTED AT SITE. OWUSU CATHETER PATENT AND INTACT, NOTED WITH SEDIMENTS. HOB KEPT ELEVATED, BED IN LOWEST AND LOCKED POSITION. WILL CONTINUE TO CLOSELY MONITOR.
--- NOTE | 2019-01-01 22:20 | NUR ---
RELAY SHOP TESTER NOTES HD COMPLETED, TOLERATED FAIRLY, 1800ML OUTPUT. PATIENT NOTED TO DESAT DOWN TO 84% WHILE ON SIMPLE MASK, NOTED WITH AUDIBLE GURGLING AND CRACKLES UPON AUSCULTATION. RT ROBINSON CALLED TO BEDSIDE FOR SUCTIONING, NOTED WITH MODERATE AMOUNT OF THICK, BARRETO COLORED SECRETIONS. SPO2 BACK UP TO 87% AFTER SUCTIONING. PATIENT REPOSITIONED FOR COMFORT, WILL CONTINUE TO CLOSELY MONITOR Addendum: 01/01/19 at 2255 by RUSTY KUMAR RN *BACK UP TO 97% SPO2*
--- NOTE | 2019-01-01 23:15 | NUR ---
NEON INSTALLER NOTES - RHYTHM CHANGE FROM SINUS TACHYCARDIA TO AFIB WITH RVR 2315 CARDIZEM 60MG ADMINISTERED VIA NGT ORDERED. VITAL SIGNS: BP 137/70, HR 123 BPM (1800 DOSE HELD BY DAY SHIFT DUE TO PENDING HD) 2322 NOTED WITH RHYTHM CHANGE TO AFIB, HR 160BPM. CHARGE NURSE MADE AWARE. STAT EKG ORDERED, RT NOTIFIED 2336 STAT EKG CONFIRMS AFIB WITH RVR. BP ALSO NOTED TO DROP TO 75/54, HR REMAINS IN AFIB 130s/140s 234 LEVOPHED DRIP RESTARTED @ 2MCG/MIN, BP MONITORED CLOSELY 234 ALEKSANDR MARTINO NP UPDATED REGARDING CHANGE OF CONDITION. ALEKSANDR ALSO MADE AWARE THAT THE 1800 DOSE OF CARDIZEM WAS HELD BY THE DAY SHIFT DUE TO PENDING HD. PER ALEKSANDR " CONTINUE CLOSE MONITORING AND IF HR SUSTAINS 130s/140s, AND STILL REQUIRES BP SUPPORT, CHANGE PRESSOR FROM LEVOPHED TO NEOSYNEPHRINE." WILL CARRY OUT ALL NEW ORDERS AND CONTINUE TO CLOSELY MONITOR THE PATIENT 0015 REMAINS IN UNCONTROLLED AFIB, HR NOW 110-140 BPM. WILL CONTINUE ON LEVOPHED GTT PRESSOR SUPPORT
[2019-01-01] MEDS ORDERED: NOREPINEPHRINE 4 MG/4 ML AMPUL IV ONE (23:35)
[2019-01-01] MEDS: NOREPINEPHRINE 16 MG in IV D5W 500 ML IV PRN (23:39)
--- NOTE | 2019-01-01 23:50 | NUR ---
PT PLACED ON NOC AVAPS PER DR BOWEN. NOTIFIED RN WITH THE SETTINGS. ALARMS SET AND AUDIBLE. WILL CONTINUE TO MONITOR.
[2019-01-02] VITALS (72 sets, daily range): BP systolic 92–146; BP diastolic 55–78
[2019-01-02] MEDS: ALBUTEROL HALF STRENGTH 1.25 MG/3 ML VIAL.NEB NEB SCH ×5 (01:20→23:42)
[2019-01-02] MEDS: IPRATROPIUM NEB FS 0.5 MG/2.5 ML AMPUL.NEB NEB SCH ×5 (01:20→23:42)
--- NOTE | 2019-01-02 02:07 | NUR ---
WALLPAPERER NOTES 020 LEVOPHED GTT TITRATED OFF, BP 110/59, HR LOW 93BPM, UNCONTROLLED AFIB. 020 PATIENT NOTED TO GO INTO RAPID AFIB, HR 157 BPM, SUSTAINED. ALEKSANDR VAULT KEEPER PAGED, AWAITING CALL BACK 023 RECEIVED MESSAGE BACK FROM ZARIA BRANDON. RHYTHM BACK INTO UNCONTROLLED AFIB, 110-130BPM. PER ALEKSANDR, "GIVE 500ML NS BOLUS X1. IF INEFFECTIVE, NOTIFY CARDIOLOGY" (DR MARTÍNEZ). WILL CARRY OUT ALL NEW ORDERS AND CONTINUE CLOSE MONITORING
[2019-01-02] MEDS: ACETAMINOPHEN 325 MG TABLET PO PRN (02:09)
[2019-01-02] MEDS ORDERED: IV NS 0.9% 500 ML IV ONE (02:30)
--- NOTE | 2019-01-02 03:07 | NUR ---
MAIL CLERKS SUPERVISOR NOTES NOTED RHYTHM CHANGE FROM AFIB/AFLUTTER TO SINUS TACHYCARDIA WITH PACS. EKG @ 0342 CONFIRMS SINUS TACHYCARDIA WITH PACs
--- NOTE | 2019-01-02 03:51 | NUR ---
STAT EKG DONE. NOTIFIED RN WITH THE RESULT.
[2019-01-02 04:27] LABS: BASOPHILS # (AUTO) 0.1 /CMM (0.0-0.2); BASOPHILS % (AUTO) 0.5 % (0.0-2.0); EOSINOPHILS % (AUTO) 0.1 % (0.0-6.0); HEMATOCRIT 24 % (39-51); HEMOGLOBIN 8.1 g/dL (13.5-17.5); LYMPHOCYTES # (AUTO) 0.3 /CMM (0.8-4.8); LYMPHOCYTES % (AUTO) 2.4 % (20.0-44.0); MEAN CORPUSCULAR HGB CONC 34 g/dl (31.0-36.0); MEAN CORPUSCULAR VOLUME 89 fL (80-96); MONOCYTES # (AUTO) 0.9 /CMM (0.1-1.30); MONOCYTES % (AUTO) 6.7 % (2.0-12.0); NEUTROPHILS # (AUTO) 12.6 /CMM (1.8-8.9); NEUTROPHILS % (AUTO) 90.3 % (43.0-81.0); PLATELET COUNT (AUTO) 72 /CMM (150-450); RED BLOOD CELL COUNT(AUTO) 2.74 MIL/uL (4.5-6.0)
[2019-01-02 04:36] LABS: CALCIUM, SERUM 7.8 mg/dL (8.5-10.1); CARBON DIOXIDE 30 mmol/L (21-32); CHLORIDE 101 mmol/L (98-107); CREATININE 3.7 mg/dL (0.6-1.3); GLUCOSE 137 mg/dL (74-106); POTASSIUM 4.3 mmol/L (3.5-5.1); SODIUM SERUM 137 mmol/L (136-145); UREA NITROGEN, BLOOD 53 mg/dL (7-18)
[2019-01-02] MEDS: DILTIAZEM HCL 30 MG TABLET NG SCH ×3 (05:02→17:04)
--- NOTE | 2019-01-02 06:12 | NUR ---
PT IS AWAKE, PT TAKEN OFF NOC AVAPS PLACED ON SM 5L. RN NOTIFIED.
--- NOTE | 2019-01-02 06:43 | NUR ---
INTERIOR ASSEMBLIES DEVELOPER PROVER NOTES PATIENT AWAKE, ALERT X1 TO SELF. HEART RATE CURRENTLY 115BPM, SINUS TACHYCARDIA. NO FURTHER EPISODES OF AFIB SINCE 304. CURRENTLY OFF AVAPS, ON O2 VIA SIMPLE MASK @ 5LPM, TOLERATING WELL, NO S/S OF RESPIRATORY DISTRESS NOTED. WILL ENDORSE THE PATIENT TO THE AM SHIFT NURSE FOR CONTINUITY OF CARE
[2019-01-02] MEDS: ACETYLCYSTEINE 10% SOLN 400 MG/4 ML VIAL NEB SCH ×3 (07:45→23:42)
--- NOTE | 2019-01-02 08:25 | NUR ---
INITIAL ASSISTANT CENTER MANAGER NOTE RCVD PT WITH EYES OPEN AND RESPONDING TO NAME, UNABLE TO FOLLOW COMMANDS AT THIS TIME, PT APPEARS DISORIENTED. PT ORIENTED TO PLACE, TIME, SITUATION, ST ON MONITOR, ON SIMPLE MASK WITH GOOD SATURATION. NG-TUBE PLACEMENT VERIFIED BY AUSCULTATION/ASPIRATION OF GASTRIC CONTENTS WHICH WERE DARK BROWN IN COLOR, BARBARA MENA AWARE. DUE TO HIGH CONTENTS OF TUBE FEEDING RESIDUAL THIS WAS PLACED ON HOLD. FLEXISEAL IN PLACE DRAINING GREEN, LOOSE STOOL, OWUSU TO GRAVITY WITH LOW URINARY OUTPUT CLOUDY, TEA COLORED. BERNA PICC C/D/I/PATENT. NO S/O INFILTRATION/PHLEBITIS OBSERVED UPON FLUSHING. WILL CONTINUE TO MONITOT PT FOR SAFETY AND COMFORT. BED IN LOW AND LOCKED POSITION. CALL LIGHT WITHIN REACH. PT'S GIRLFRIEND, KIKI IN UNIT WAITING TO BE UPDATED BY .
[2019-01-02] MEDS: PANTOPRAZOLE 40 MG VIAL IV SCH ×2 (08:40→20:06)
[2019-01-02] MEDS: SEVELAMER CARBONATE 0.8 GM POWD.PACK GT SCH ×3 (08:40→17:04)
[2019-01-02] MEDS: CLOTRIMAZOLE 1% 15 GM TUBE TP SCH ×2 (08:42→17:04)
[2019-01-02] MEDS: PROSOURCE / PROSTAT (PYXIS) 30 ML UDC PO SCH (08:42)
[2019-01-02] MEDS: HYDROGEL DRESSING 90 GM TUBE TP SCH (08:43)
[2019-01-02] MEDS: METOCLOPRAMIDE HCL 10 MG/2 ML VIAL IV SCH ×3 (09:51→20:06)
[2019-01-02 11:56] LABS: ABG BASE EXCESS 3.9 mmol/L; ABG OXYGEN SATURATION 89.9 % (92.0-98.5); ABG PCO2 56.3 mmHg (35.0-45.0); ABG PH 7.349 (7.350-7.450); ABG PO2 62.6 mmHg (75.0-100.0); AaDO2 194.2 mmHg; COHb 0.5 % (0.5-1.5); O2Hb 88.6 % (94.0-97.0); SITE, ABG Left Radial; VENT MODE, BG SIMPLE MASK
[2019-01-02] MEDS: MEROPENEM 500 MG in IV NS 0.9% 50 ML IV SCH (12:22)
--- NOTE | 2019-01-02 12:24 | NUR ---
MEDICATION NOTE CRISPIN HELD. PT'S TUBE FEEDING REMAINS ON HOLD DUE TO HIGH RESIDUAL, LESS THAN IN AM BUT OVER 150ML. WILL CONTINUE TO MONITOR
--- NOTE | 2019-01-02 13:00 | NUR ---
TRANSPORTATION DISPATCHER NOTE PT PLACED ON BIPAP, BECAME MORE TACHYPNEIC THAN BASELINE, ABG DONE WITH INCREASED CO2 LEVEL. DR. BOWEN INFORMED AND RECOMMENDED TO BE PLACED BACK ON BIPAP. PT WAS SUCTIONED PRIOR AND TUBE FEEDING REMAINS ON HOLD. DR. BOWEN INFORMED OF PT'S BROWN COLORED (COFFEE GROUND) GASTRIC RESIDUAL RECOMMENDED TO START REGLAN AND SEND SAMPLE FOR OCCULT BLOOD. PT'S HGB TRENDING DOWN.
[2019-01-02] MEDS: MICAFUNGIN SODIUM 100 MG in IV NS 0.9% 100 ML IV SCH (13:02)
--- NOTE | 2019-01-02 16:53 | NUR ---
AIR REDUCTION EQUIPMENT OPERATOR NOTE PER RIOS, ORNAMENTAL PLASTERER HELPER NOTE [facility] MICRO DEPARTMENT CALLED REQUESTING BLOOD CX RESULTS FOR 12/29 SAMPLE. PER MICRO NOTHING HAS BEEN REPORTED YET.
[2019-01-02] MEDS: NEPRO 1,000 ML BOTTLE GT PRN (17:04)
--- NOTE | 2019-01-02 17:10 | NUR ---
RT END OF THE SHIFT REPORT; PT. 78 Y OLD MALE REC. 0700 AM ON 6L/MIN SIMPLE MASK AWAKE AND RESPONSIVE. DURING THE DAY PT. FOUND MORE LETHARGIC, POST ABG PLACED ON BIPAP PER DR. BOWEN ORDER WITH NOTED SETTINGS, ALARMS ARE SET AND EQUAL CHEST RISE NOTED. TX'S GIVEN AND CPT LOWER LOBES DONE. PT. SUX'D FOR MOD. AMT OF YELLOW SECRETIONS. PT. REMAIN STABLE ON BIPAP, AMBU BAG REMAIN ON THE BEDSIDE. AND CONTINUE TO MONITOR. REPORT WILL BE PASSED TO PM SHIFT. Addendum: 01/02/19 at 1716 by LAUREN GUERRA RT Amended: Links added.
--- NOTE | 2019-01-02 18:28 | NUR ---
INSTRUCTOR HAIRSPRING NOTE PT AWAKE AND RESPONSIVE TO NAME, ACCELERATED JUNCTIONAL ON MONITOR, REMAINS ON BIPAP SHOWING NO S/O DISTRESS. NG-TUBE PLACEMENT VERIFIED BY AUSCULTATION/ASPIRATION OF GASTRIC CONTENT, TUBE FEEDING RE-STARTED AT 10 ML/HR SO FAR TOLERATING WELL, OWUSU TO GRAVITY DRAINING TEA COLORED URINE, FLEXISEAL IN PLACE DRAINING BROWN LIQUID STOOL. BERNA PICC C/D/I/PATENT, NO S/O INFILTRATION/PHLEBITIS OBSERVED UPON FLUSHING. PT'S CARE WILL BE ENDORSED TO HANDS ASSEMBLER RN FOR CONTINUITY OF CARE. BED IN LOW AND LOCKED POSITION, CALL LIGHT WITHIN REACH, HEAD OF BED ELEVATED.
--- NOTE | 2019-01-02 19:42 | NUR ---
RECEIVED PT ON BIPAP 06/05, R 12, 50%. NO DISTRESS, PT TOLERATING SETTINGS. ALARMS SET AND AUDIBLE. WILL CONTINUE TO MONITOR. Addendum: 01/02/19 at 1944 by RENA MAYA RT Amended: Links added.
--- NOTE | 2019-01-02 20:00 | NUR ---
BAR TACKER SEWING MACHINE - NOTES - RCVD PT WITH EYES OPEN AND RESPONDING TO NAME, FOLLOWS COMMANDS AT THIS TIME, PT IS LETHARGIC BUT ORIENTED TO SITUATION, ST/SR ON MONITOR, ON BIPAP RATE 12, 50% FIO2, 18/8 WITH 100% SATURATION. NG-TUBE PLACEMENT VERIFIED BY AUSCULTATION/ASPIRATION OF GASTRIC CONTENTS, 5 ML OF STRAW COLORED RESIDUALS TF @ 10 ML/HR WILL ADVANCE TO 20, GOAL 35 ML/HR. FLEXISEAL IN PLACE DRAINING GREEN, LOOSE STOOL, OWUSU TO GRAVITY WITH LOW URINARY OUTPUT CLOUDY, TEA COLORED. BERNA PICC C/D/I/PATENT. NO S/O INFILTRATION/PHLEBITIS OBSERVED UPON FLUSHING. WILL CONTINUE TO MONITOR PT FOR SAFETY AND COMFORT. BED IN LOW AND LOCKED POSITION. CALL LIGHT WITHIN REACH.
[2019-01-03] VITALS (53 sets, daily range): BP systolic 94–138; BP diastolic 51–69
[2019-01-03] MEDS: DILTIAZEM HCL 30 MG TABLET NG SCH ×4 (00:19→17:18)
[2019-01-03] MEDS: ACETAMINOPHEN 325 MG TABLET PO PRN (00:59)
[2019-01-03] MEDS: METOCLOPRAMIDE HCL 10 MG/2 ML VIAL IV SCH ×4 (02:29→21:00)
[2019-01-03 04:34] LABS: BASOPHILS # (AUTO) 0.1 /CMM (0.0-0.2); BASOPHILS % (AUTO) 0.8 % (0.0-2.0); EOSINOPHILS % (AUTO) 0.3 % (0.0-6.0); HEMATOCRIT 22 % (39-51); HEMOGLOBIN 7.5 g/dL (13.5-17.5); LYMPHOCYTES # (AUTO) 0.5 /CMM (0.8-4.8); LYMPHOCYTES % (AUTO) 3.8 % (20.0-44.0); MEAN CORPUSCULAR HGB CONC 34 g/dl (31.0-36.0); MEAN CORPUSCULAR VOLUME 88 fL (80-96); MONOCYTES % (AUTO) 8.3 % (2.0-12.0); NEUTROPHILS # (AUTO) 10.7 /CMM (1.8-8.9); NEUTROPHILS % (AUTO) 86.8 % (43.0-81.0); PLATELET COUNT (AUTO) 94 /CMM (150-450); RED BLOOD CELL COUNT(AUTO) 2.52 MIL/uL (4.5-6.0); WHITE BLOOD COUNT (AUTO) 12.3 K/uL (4.3-11.0)
[2019-01-03 04:51] LABS: CALCIUM, SERUM 8.1 mg/dL (8.5-10.1); CARBON DIOXIDE 26 mmol/L (21-32); CHLORIDE 102 mmol/L (98-107); CREATININE 4.9 mg/dL (0.6-1.3); GLUCOSE 98 mg/dL (74-106); POTASSIUM 4.2 mmol/L (3.5-5.1); SODIUM SERUM 138 mmol/L (136-145); UREA NITROGEN, BLOOD 78 mg/dL (7-18)
--- NOTE | 2019-01-03 06:00 | NUR ---
DUE TO 240 ML TUBE FEEDING RESIDUAL TF WAS PLACED ON HOLD
[2019-01-03 06:13] LABS: LYMPHOCYTES % (MANUAL) 3 % (16-48); MONOCYTES % (MANUAL) 8 % (0-11.0); NEUTROPHILS % (MANUAL) 89 (42-76)
[2019-01-03] MEDS: IPRATROPIUM NEB FS 0.5 MG/2.5 ML AMPUL.NEB NEB SCH ×3 (07:25→19:39)
[2019-01-03] MEDS: ACETYLCYSTEINE 10% SOLN 400 MG/4 ML VIAL NEB SCH ×3 (07:25→23:59)
[2019-01-03] MEDS: ALBUTEROL HALF STRENGTH 1.25 MG/3 ML VIAL.NEB NEB SCH ×3 (07:26→19:39)
--- NOTE | 2019-01-03 07:59 | NUR ---
PATIENT REMOVED FROM BIPAP AND PLACED ON 6L SIMPLE MASK. PATIENT AWAKE RESPONDING TO COMMANDS. NO SOB AT THIS TIME.
--- NOTE | 2019-01-03 08:00 | NUR ---
ICU/RN: Pt off BiPAP, tolerating SM at 6L/min. Awake, alert, follows commands. SR-ST on monitor. Lower ext weakness noted. Flexiseal inflated and filled with air. Replaced. Gastric residuals remain >200ml. Will cont to monitor pt.
--- NOTE | 2019-01-03 08:11 | NUR ---
ICU/RN: F/U with lab regarding OB gastric fluid. Per lab, OB body fluid sent out; results will be available late afternoon.
[2019-01-03] MEDS: HYDROGEL DRESSING 90 GM TUBE TP SCH (08:44)
[2019-01-03] MEDS: SEVELAMER CARBONATE 0.8 GM POWD.PACK GT SCH ×3 (08:44→17:18)
[2019-01-03] MEDS: PROSOURCE / PROSTAT (PYXIS) 30 ML UDC PO SCH (08:44)
[2019-01-03] MEDS: PANTOPRAZOLE 40 MG VIAL IV SCH ×2 (08:44→21:00)
[2019-01-03] MEDS: CLOTRIMAZOLE 1% 15 GM TUBE TP SCH ×2 (08:45→16:45)
--- NOTE | 2019-01-03 09:45 | NUR ---
ICU/RN: Pt noted with difficulty coughing and clearing secretions. HOB elevated. RT at bedside for NT suctioning with moderate amount of thick secretions out. Pt unable to tolerate and placed back on BiPAP to previous settings.
--- NOTE | 2019-01-03 10:01 | NUR ---
PATIENT BEGAN TO SHOW SIGNS OF SOB AND INCREASED HR WITH DESATURATION. PATIENT NT SUCTIONED AND PLACED BACK ON BIPAP MACHINE. RN AWARE.
[2019-01-03] MEDS: NOREPINEPHRINE 16 MG in IV D5W 500 ML IV PRN (11:01)
--- NOTE | 2019-01-03 12:30 | NUR ---
ICU/RN: Pt tolerated TF at 15mls/hr; will increase as tolerated. Pt drowsy, easily awakens and follows commands.
[2019-01-03] MEDS: DIGOXIN INJ 0.5 MG/2 ML AMPUL IV SCH (12:31)
[2019-01-03] MEDS: MEROPENEM 500 MG in IV NS 0.9% 50 ML IV SCH (12:45)
[2019-01-03] MEDS ORDERED: DIGOXIN INJ 0.5 MG/2 ML AMPUL IV SCH (13:00)
[2019-01-03] MEDS: Z GUARD REMEDY 2 OZ OINT TP PRN (16:45)
[2019-01-03] MEDS: NEPRO 1,000 ML BOTTLE GT PRN (16:47)
--- NOTE | 2019-01-03 17:15 | NUR ---
ICU/RN: S/P HD 1800 output. Tolerated well. Wound and hygienic care rendered. Reassessed rectal tube, no output since bag change in am despite irrigation. Unable to collect stool for C-diff. Pt alert and following commands. Will cont to monitor pt.
--- NOTE | 2019-01-03 19:18 | NUR ---
ICU/RN: Pt in bed, no distress, tolerating BiPAP. Care endorsed at bedside for JOSH.
--- NOTE | 2019-01-03 20:00 | NUR ---
Received patient awake follows simple commands on BIPAP.Settings well tolerated.No respiratory distress noted.Tele SR .VS stable.NGT feeding Nepro infusing with residual 30 ml.Increased rate to 35 ml/hr.NGT placement verified.HOB elevated.FC to gravity no urine output at this time.Flexiseal in place no stools noted a this time.Turned and repositioned.Maintained on [employer] mattress.
[2019-01-04] VITALS (45 sets, daily range): BP systolic 91–139; BP diastolic 46–71
--- NOTE | 2019-01-04 | NUR ---
Patient resting in no acute distress.Tolerating feeding.vs remains stable.
[2019-01-04] MEDS: DILTIAZEM HCL 30 MG TABLET NG SCH ×4 (00:01→17:44)
[2019-01-04] MEDS: ALBUTEROL HALF STRENGTH 1.25 MG/3 ML VIAL.NEB NEB SCH ×4 (01:45→19:34)
[2019-01-04] MEDS: IPRATROPIUM NEB FS 0.5 MG/2.5 ML AMPUL.NEB NEB SCH ×4 (01:45→19:34)
[2019-01-04] MEDS: METOCLOPRAMIDE HCL 10 MG/2 ML VIAL IV SCH ×4 (03:01→21:00)
[2019-01-04 04:34] LABS: CALCIUM, SERUM 8.1 mg/dL (8.5-10.1); CARBON DIOXIDE 28 mmol/L (21-32); CHLORIDE 104 mmol/L (98-107); CREATININE 3.6 mg/dL (0.6-1.3); GLUCOSE 111 mg/dL (74-106); POTASSIUM 4.1 mmol/L (3.5-5.1); SODIUM SERUM 140 mmol/L (136-145); UREA NITROGEN, BLOOD 55 mg/dL (7-18)
--- NOTE | 2019-01-04 07:02 | NUR ---
No significant change noted during the night,AM care done.Turned and repositioned.No acute distress noted.
[2019-01-04] MEDS: ACETYLCYSTEINE 10% SOLN 400 MG/4 ML VIAL NEB SCH ×2 (07:20→15:48)
--- NOTE | 2019-01-04 08:00 | NUR ---
ICU/RN: Pt placed on simple mask 6L/min, no distress noted. Encouraged pt to cough and take deep breaths. Oral care rendered.
[2019-01-04] MEDS: PANTOPRAZOLE 40 MG VIAL IV SCH ×2 (08:46→21:00)
[2019-01-04] MEDS: SEVELAMER CARBONATE 0.8 GM POWD.PACK GT SCH ×3 (08:46→17:44)
[2019-01-04] MEDS: CLOTRIMAZOLE 1% 15 GM TUBE TP SCH ×2 (08:47→15:52)
[2019-01-04] MEDS: HYDROGEL DRESSING 90 GM TUBE TP SCH (08:47)
[2019-01-04] MEDS: PROSOURCE / PROSTAT (PYXIS) 30 ML UDC PO SCH (08:47)
[2019-01-04 09:55] LABS: ABG OXYGEN SATURATION 94.3 % (92.0-98.5); ABG PCO2 41.2 mmHg (35.0-45.0); ABG PH 7.441 (7.350-7.450); ABG PO2 78.2 mmHg (75.0-100.0); AaDO2 304.3 mmHg; COHb 0.6 % (0.5-1.5); MetHb 1.3 % (0.0-1.5); O2Hb 92.5 % (94.0-97.0); SITE, ABG Right Radial; VENT MODE, BG SIMPLE MASK
[2019-01-04] MEDS ORDERED: ACETYLCYSTEINE 10% SOLN 400 MG/4 ML VIAL NEB SCH (10:00)
[2019-01-04] MEDS: MEROPENEM 500 MG in IV NS 0.9% 50 ML IV SCH (12:07)
[2019-01-04] MEDS: DIGOXIN INJ 0.5 MG/2 ML AMPUL IV SCH (12:08)
[2019-01-04] MEDS: Z GUARD REMEDY 2 OZ OINT TP PRN ×2 (12:08→15:52)
--- NOTE | 2019-01-04 14:30 | NUR ---
ICU/RN: Pt placed back on BiPAP, pt noted tachypneic, tachycardic. RT at bedside. Airway cleared of secretions. Will cont to monitor pt.
--- NOTE | 2019-01-04 14:30 | NUR ---
RT NOTE: PATIENT PLACED BACK ON BIPAP DUE TO INCREASE WOB. ALARMS VERIFIED AND AUDIBLE. SUCTIONED AND LAVAGED THICK YELLOW/BLOOD TINGED SECRETIONS THROUGHOUT SHIFT. AMBU BAG AT [facility].
--- NOTE | 2019-01-04 15:30 | NUR ---
ICU/RN: Bed bath, wound care rendered, pt tolerated well. Follows some commands.
--- NOTE | 2019-01-04 19:30 | NUR ---
Received report patient resting in no acute distress.On BIPAP and settings well tolerated. SR with in and out Afib with pvc's.NGT feeding in progress.No residual noted.HOB elevated. FC to gravity and Flexi seal.Turned and repositioned.
--- NOTE | 2019-01-04 19:34 | NUR ---
RECEIVED PT ON BIPAP 18/, R 12, 40%. PT IS AWAKE AND ALERT. NO RESP DISTRESS NOTED AT THIS TIME , PT TOLERATING SETTINGS. ALARMS SET AND AUDIBLE. Q6 BREATHING TX GIVEN PER MD'S ORDER. NO ADVERSE REACTION NOTED. WILL CONTINUE TO MONITOR THE PT..
--- NOTE | 2019-01-04 23:00 | NUR ---
Patient awake denies pain.Tele AFIB 130'S-150'S non sustaining and down to 90's.EKG done.Continue monitoring.
[2019-01-04] MEDS: IV NS 0.9% 250 ML IV PRN (23:39)
[2019-01-05] VITALS (71 sets, daily range): BP systolic 74–126; BP diastolic 41–78
[2019-01-05] MEDS ORDERED: IV NS 0.9% 250 ML IV ONE
[2019-01-05] MEDS: DILTIAZEM HCL 30 MG TABLET NG SCH ×5 (00:08→23:17)
[2019-01-05] MEDS: ALBUTEROL HALF STRENGTH 1.25 MG/3 ML VIAL.NEB NEB SCH ×4 (00:36→19:24)
[2019-01-05] MEDS: ACETYLCYSTEINE 10% SOLN 400 MG/4 ML VIAL NEB SCH ×3 (00:36→16:01)
[2019-01-05] MEDS: IPRATROPIUM NEB FS 0.5 MG/2.5 ML AMPUL.NEB NEB SCH ×4 (00:36→19:24)
[2019-01-05] MEDS: METOCLOPRAMIDE HCL 10 MG/2 ML VIAL IV SCH ×4 (03:57→20:26)
--- NOTE | 2019-01-05 06:28 | NUR ---
Patient rhythm converted back to SR at 0500.Patient on Cardizem and digoxin as scheduled dose. Tolerating BIPAP and tube feeding.AM care done.Wound care done.Turned and repositioned.Will endorse to day shift for continuity of care.
--- NOTE | 2019-01-05 07:45 | NUR ---
CUT OFF SAW TENDER METAL: pt.is awake, Ox1, rest, eyes contact +, very weak, unable to follow commands, O2sat. ovetr 96% on Bipap over night, getting CPT by RT, SR now, SBP over 100, no SOB, going for HD/HD nurse updated, NGTF residual WNL, failed swallow evaluation by report, was in room/updated by night nurse, flexiseal tube in/no c/o, oliguric, T 99.7
[2019-01-05] MEDS: PANTOPRAZOLE 40 MG VIAL IV SCH ×2 (08:31→20:26)
[2019-01-05] MEDS: SEVELAMER CARBONATE 0.8 GM POWD.PACK GT SCH ×3 (08:31→17:23)
[2019-01-05] MEDS: PROSOURCE / PROSTAT (PYXIS) 30 ML UDC PO SCH (08:31)
[2019-01-05] MEDS: HYDROGEL DRESSING 90 GM TUBE TP SCH (08:32)
[2019-01-05] MEDS: CLOTRIMAZOLE 1% 15 GM TUBE TP SCH ×2 (08:32→17:17)
--- NOTE | 2019-01-05 10:00 | NUR ---
HORSERADISH GRINDER: Marv, CASHIER MANAGER is in room, updated with pt.current status, neuro status, VS, I/O, NGTF, HD, swallow eval.failed, flexiseal tube, skin problem, chest PT, O3sat. Bipap setting, tried to call Katiana/girlfriend, needs phone# verification, see new orders
--- NOTE | 2019-01-05 11:50 | NUR ---
WOOD DRILLING MACHINE OPERATOR: RT suctioned pt. OPh deeply well with large thick secretion amount
--- NOTE | 2019-01-05 12:30 | NUR ---
CONE SEWER: IS IN ROOM, UPDATED WITH PT.CURRENT STATUS, VS, O2SAT.ON SM 10L, NEURO STATUS, SUCTIONED AMOUNT, I/O, HD, NGTF, SEE NEW ORDERS
[2019-01-05] MEDS: DIGOXIN INJ 0.5 MG/2 ML AMPUL IV SCH (13:51)
[2019-01-05] MEDS: MEROPENEM 500 MG in IV NS 0.9% 50 ML IV SCH (13:53)
--- NOTE | 2019-01-05 15:57 | NUR ---
SLIP MAKER: pt.is rest, awake, still very weak, on 10L SM, O2sat.over 96%, RR 24-34, back to Afib, HR 90-130, SBP over 100, no pain, PM,skin,wounds care done, flexiseal tube is patent
[2019-01-05 16:10] LABS: ABG BASE EXCESS 4.6 mmol/L; ABG OXYGEN SATURATION 96.7 % (92.0-98.5); ABG PCO2 41.8 mmHg (35.0-45.0); ABG PH 7.458 (7.350-7.450); AaDO2 279.8 mmHg; COHb 0.2 % (0.5-1.5); MetHb 0.8 % (0.0-1.5); O2Hb 95.7 % (94.0-97.0); SITE, ABG Right Radial; VENT MODE, BG SIMPLE MASK
--- NOTE | 2019-01-05 19:30 | NUR ---
OFFICE EQUIPMENT MECHANIC INITIAL SHIFT NOTES RECEIVED PATIENT IN BED, ASLEEP EYES CLOSED, CURRENTLY ON BIPAP, SETTINGS ORDERED. HR REMAINS ELEVATED, CURRENTLY IN AFIB/AFLUTTER, HR =1 150BPM. PER REPORT PATIENT WENT INTO AFIB/AFLUTTER @ 1850, CARDIZEM 60MG VIA GT ALREADY GIVEN BY DAY SHIFT NURSE ORDERED. PATIENT WITH TEMP 100.9, WILL ADMINISTER TYLENOL AND INITIATE COOLING MEASURES. BERNA PICC PATENT AND INTACT, ALL PORTS FLUSHED WITH NS. NGT PATENT AND INTACT, PLACEMENT VERIFIED VIA AUSCULTATION. OWUSU CATHETER DRAINING MINIMAL AMOUNTS OF CLOUDY URINE. RECTAL TUBE IN PLACE, DRAINING BROWN/GREEN LIQUID STOOL. HOB KEPT ELEVATED FOR ASPIRATION PRECAUTIONS. WILL MONITOR CLOSELY
[2019-01-05] MEDS: ACETAMINOPHEN 325 MG TABLET PO PRN (20:03)
--- NOTE | 2019-01-05 21:00 | NUR ---
COMPUTER PERIPHERAL EQUIPMENT OPERATOR NOTES PATIENT'S HR REMAINS 140-150 BPM, AFIB/AFLUTTER. BP NOTED TO DROP, SYSTOLIC IN THE 80s, REQUIRING PRESSOR SUPPORT, WITH CURRENT ORDERS FOR LEVOPHED GTT. NORIS VERGARA BODY LINE FINISHER MADE AWARE OF CHANGE IN CONDITION, WITH NEW ORDER TO START NEOSYNEPHRINE DRIP INSTEAD OF LEVOPHED DUE TO ALREADY ELEVATED HR. NORIS ALSO WITH ORDER TO INITIATE CVP MONITORING. WILL CARRY OUT NEW ORDERS AND CONTINUE CLOSE MONITORING
[2019-01-05] MEDS: PHENYLEPHRINE 80 MG in IV D5W 250 ML IV PRN (21:26)
[2019-01-06] VITALS (100 sets, daily range): BP systolic 72–131; BP diastolic 33–89
[2019-01-06] MEDS: ALBUTEROL HALF STRENGTH 1.25 MG/3 ML VIAL.NEB NEB SCH ×4 (00:34→19:46)
[2019-01-06] MEDS: ACETYLCYSTEINE 10% SOLN 400 MG/4 ML VIAL NEB SCH ×4 (00:34→23:07)
[2019-01-06] MEDS: IPRATROPIUM NEB FS 0.5 MG/2.5 ML AMPUL.NEB NEB SCH ×4 (00:35→19:46)
[2019-01-06] MEDS: METOCLOPRAMIDE HCL 10 MG/2 ML VIAL IV SCH ×4 (03:58→21:00)
[2019-01-06] MEDS: DILTIAZEM HCL 30 MG TABLET NG SCH ×4 (05:03→23:17)
[2019-01-06] MEDS: NEPRO 1,000 ML BOTTLE GT PRN (05:05)
[2019-01-06] MEDS: ACETAMINOPHEN 325 MG TABLET PO PRN ×3 (05:13→15:48)
--- NOTE | 2019-01-06 07:30 | NUR ---
EVALUATION ENGINEER: pt.is awake, very weak, rest, eyes contact+, can follow very simple commands, grimacing 3-5/10, SOB 30-36, no laboring, O2sat. over 96% in Bipap, 40% FiO2, Afib with RVR, HR 130-145 now, SBP around 75-85, will restart Héctor-Synephrine gtt, T 100.0, NGTF residual WNL, CVP 7-9 now, was in unit/updated by night nurse, digoxin level WNL
[2019-01-06] MEDS: SEVELAMER CARBONATE 0.8 GM POWD.PACK GT SCH ×3 (07:51→17:13)
[2019-01-06] MEDS: PANTOPRAZOLE 40 MG VIAL IV SCH ×2 (08:51→21:00)
[2019-01-06] MEDS: PROSOURCE / PROSTAT (PYXIS) 30 ML UDC PO SCH ×3 (08:51→17:14)
[2019-01-06] MEDS: Z GUARD REMEDY 2 OZ OINT TP PRN (08:52)
[2019-01-06] MEDS: HYDROGEL DRESSING 90 GM TUBE TP SCH (08:52)
[2019-01-06] MEDS: CLOTRIMAZOLE 1% 15 GM TUBE TP SCH ×2 (08:52→17:14)
--- NOTE | 2019-01-06 09:00 | NUR ---
PATIENT REMOVED FROM BIPAP AND PLACED ON 5L N/C JOANN WELL. PATIENT CURRENTLY RESPONDING TO COMMANDS. B/S DIM. WILL CONT TO MONITOR CLOSELY
--- NOTE | 2019-01-06 10:05 | NUR ---
AGENCY SERVICE COORDINATOR: pt.is on 6L n/c now, O2sat. over 96%, awake, can follow simple commands, continue titrate pressor, Marv,COUPLING MACHINE OPERATOR, Avani IDNP are in room, updated with all above, VS, Héctor gtt, Afib with RVR back to afib/aflutter, over night Bipap, upper airway suction amount, I/O, HD, NGTF, flexiseal tube, wounds, L.chest PT, no labs resulted today, see new orders
--- NOTE | 2019-01-06 11:45 | NUR ---
SPACE AND MISSILE OPERATIONS SPACELIFT: is in room, notified re pt.current status, Bipap over night, now on 6L n/c, pressor Héctor gtt/20 mcg/m now, VS, I/O, O2sat., suctions amount, Afib with RVR, HD, NGTF, said: place pt.on R,side and suction deeply, notified RT, ordered CXR for tomorrow
[2019-01-06] MEDS: DIGOXIN INJ 0.5 MG/2 ML AMPUL IV SCH (12:11)
[2019-01-06] MEDS: MEROPENEM 500 MG in IV NS 0.9% 50 ML IV SCH (12:11)
--- NOTE | 2019-01-06 16:30 | NUR ---
OPEN HEARTH WORKER: pt was suctioned deeply by RT, PM,skin,wound care done, O2sat. over 95% on 5L n/c, afib/flutter with RVR, Tylenol given d/t T100.3/pain 3-01/26, HD tomorrow by Dr.Danny roper
--- NOTE | 2019-01-06 17:15 | NUR ---
CATALYST RECOVERY OPERATOR: last 15-20 mins SVT 140-160, SBP 95-105, Héctor gtt off since 15.15, Afib/flutter 80-130 before, pt is awake, off of Bipap, O2sat.WNL, T 100.3, sent message for , charge nurse is aware
--- NOTE | 2019-01-06 17:43 | NUR ---
AUTOMATION DEVELOPER: Aflutter now 89-114, BP 97/60, O2sat. over 95%, pt.is awake, no c/o
--- NOTE | 2019-01-06 19:30 | NUR ---
COMPUTER BOOKKEEPER NOTE RECEIVED PT AWAKE AND ALERT TO NAME. ABLE TO NOD HEAD FOR YES AND NO AND FOLLOWS SIMPLE COMMANDS. ON 6L OF O2 VIA NC WITH HUMIDIFIER AND SATURATING WELL. BREATHING REGULAR AN UNLABORED. NOTED WITH NONPRODUCTIVE COUGH. HOB ELEVATED AND ON ASPIRATION PRECAUTIONS. TELE- AFIB 112. L NARE NG TUBE IN PLACE WITH FEEDING INFUSING AND NO RESIDUALS NOTED. IV BERNA PICC CLEAN AND PATENT WITH CVP MONITORING AT 5 mmHg. R IJ HD CATH WITH PIGTAIL IN PLACE AND CLEAN. OWUSU CATHETER IN PLACE AND DRAINING BY GRAVITY. RECTAL TUBE IN PLACE AND DRAINING. WILL CONTINUE TO MONITOR.
--- NOTE | 2019-01-06 20:37 | NUR ---
RECEIVED PT ON 6L NC. PT IS AWAKE. B/S DM ON LEFT, COARSE ON THE RIGHT. SX'D FOR MOD AMT OF THIN CLEAR SECRETIONS. WILL CONTINUE TO MONITOR.
--- NOTE | 2019-01-06 20:40 | NUR ---
ORDER SCHEDULE CLERK NOTE RT AT BEDSIDE PERFORMING DEEP SUCTION. PT TOLERATED WELL. WILL MONITOR.
[2019-01-06] MEDS: IV NS 0.9% 250 ML IV PRN (21:01)
[2019-01-07] VITALS (43 sets, daily range): BP systolic 91–136; BP diastolic 47–81
[2019-01-07] MEDS: ACETAMINOPHEN 325 MG TABLET PO PRN (00:23)
[2019-01-07] MEDS: IPRATROPIUM NEB FS 0.5 MG/2.5 ML AMPUL.NEB NEB SCH ×4 (01:00→19:44)
[2019-01-07] MEDS: ALBUTEROL HALF STRENGTH 1.25 MG/3 ML VIAL.NEB NEB SCH ×4 (01:00→19:44)
[2019-01-07] MEDS: METOCLOPRAMIDE HCL 10 MG/2 ML VIAL IV SCH ×4 (02:33→21:22)
[2019-01-07] MEDS: DILTIAZEM HCL 30 MG TABLET NG SCH ×4 (05:09→23:43)
[2019-01-07] MEDS: NEPRO 1,000 ML BOTTLE GT PRN (05:10)
[2019-01-07 05:13] LABS: ALANINE AMINOTRANSFERASE 24 U/L (12-78); ALBUMIN 1.6 g/dL (3.4-5.0); ALKALINE PHOSPHATASE 131 U/L (46-116); ASPARTATE AMINOTRANSFERASE 28 U/L (15-37); BILIRUBIN,TOTAL 0.3 mg/dL (0.2-1.0); CALCIUM, SERUM 8.1 mg/dL (8.5-10.1); CARBON DIOXIDE 29 mmol/L (21-32); CHLORIDE 103 mmol/L (98-107); CREATININE 4.7 mg/dL (0.6-1.3); GLUCOSE 112 mg/dL (74-106); MAGNESIUM 2.1 mg/dL (1.8-2.4); PHOSPHORUS 3.9 mg/dL (2.5-4.9); POTASSIUM 3.9 mmol/L (3.5-5.1); SODIUM SERUM 139 mmol/L (136-145); TOTAL PROTEIN, SERUM 5.2 g/dL (6.4-8.2); UREA NITROGEN, BLOOD 86 mg/dL (7-18)
[2019-01-07 05:19] LABS: BASOPHILS # (AUTO) 0.1 /CMM (0.0-0.2); BASOPHILS % (AUTO) 0.7 % (0.0-2.0); EOSINOPHILS % (AUTO) 2.3 % (0.0-6.0); HEMATOCRIT 25 % (39-51); HEMOGLOBIN 8.1 g/dL (13.5-17.5); LYMPHOCYTES # (AUTO) 0.7 /CMM (0.8-4.8); LYMPHOCYTES % (AUTO) 5.7 % (20.0-44.0); MEAN CORPUSCULAR HGB CONC 32 g/dl (31.0-36.0); MEAN CORPUSCULAR VOLUME 88 fL (80-96); MONOCYTES # (AUTO) 1.4 /CMM (0.1-1.30); MONOCYTES % (AUTO) 11.7 % (2.0-12.0); NEUTROPHILS # (AUTO) 9.8 /CMM (1.8-8.9); NEUTROPHILS % (AUTO) 79.6 % (43.0-81.0); PLATELET COUNT (AUTO) 258 /CMM (150-450); RED BLOOD CELL COUNT(AUTO) 2.82 MIL/uL (4.5-6.0); WHITE BLOOD COUNT (AUTO) 12.3 K/uL (4.3-11.0)
[2019-01-07 05:57] LABS: BAND % (MANUAL) 2 % (0.0-5.0); LYMPHOCYTES % (MANUAL) 11 % (16-48); MONOCYTES % (MANUAL) 9 % (0-11.0); NEUTROPHILS % (MANUAL) 78 (42-76)
[2019-01-07] MEDS: ACETYLCYSTEINE 10% SOLN 400 MG/4 ML VIAL NEB SCH ×3 (07:29→23:42)
--- NOTE | 2019-01-07 07:30 | NUR ---
received patient from yusef irby. patient awake and alert. nods y/n, follows commands and denies pain. iv site c/d/i/p good blood return tko. s/p pressor support 01/06 1500 and bp stable. hd cath right IJ (inserted 12/28) and pending HD today. Bryan cath to gravity (inserted 01/01) s/t retention with 150ml output last night; intact and draining to gravity. s/p extubation 12/30 and s/p bipap 01/04 and currently on 6l nc saturation stable. rr slightly elevated throughout night per rn 25-40; at this time low 30's. patient following commands for deep breathing and able to complete. patient with rectal tube for loose bowel movements' c diff negative on 12/25 and ob positive on 12/18 and at this time no s/s bleeding. safety, skin, aspiration precautions in place and will monitor. Addendum: 01/07/19 at 0919 by CRIS SOLO RN ng tube in place verified placement with tube feeding running 35ml/hour without residual. hx of high residual and will monitor
--- NOTE | 2019-01-07 07:50 | NUR ---
dr guzman at bedside. updated on patient condition and periodically elevated HR. per md adam to dc cvp monitoring
--- NOTE | 2019-01-07 08:05 | NUR ---
moved patient to room 254 closer to nurse station
[2019-01-07] MEDS: PROSOURCE / PROSTAT (PYXIS) 30 ML UDC PO SCH ×3 (08:18→16:00)
[2019-01-07] MEDS: Z GUARD REMEDY 2 OZ OINT TP PRN (08:18)
[2019-01-07] MEDS: PANTOPRAZOLE 40 MG VIAL IV SCH ×2 (08:18→21:22)
[2019-01-07] MEDS: HYDROGEL DRESSING 90 GM TUBE TP SCH (08:19)
[2019-01-07] MEDS: SEVELAMER CARBONATE 0.8 GM POWD.PACK GT SCH ×3 (08:19→17:21)
[2019-01-07] MEDS: CLOTRIMAZOLE 1% 15 GM TUBE TP SCH ×2 (08:20→16:02)
--- NOTE | 2019-01-07 09:55 | NUR ---
eugenio gregory at bedside. updated on patient condition, labs, vs. aware patient rr in 30's. plan for swallow eval tomorrow. if fails discuss possible g tube. mignon macias spoke with bri and updated on care plan
--- NOTE | 2019-01-07 11:35 | NUR ---
hd completed. 1L out. tolerated well no complications.
[2019-01-07] MEDS: MEROPENEM 500 MG in IV NS 0.9% 50 ML IV SCH (13:17)
[2019-01-07] MEDS: DIGOXIN INJ 0.5 MG/2 ML AMPUL IV SCH (13:18)
--- NOTE | 2019-01-07 17:22 | NUR ---
patient is sinus tach with pac's. at times will go between afib and sinus with pac's.
--- NOTE | 2019-01-07 19:13 | NUR ---
ALL DUE MEDS GIVEN AND ALL NEEDS MET. PATIENT VSS. TOLERATING LOW FLOW 02 AT 5LPM SATURATING 95% AND ABOVE. PATIENT PICC LINE C/D/I/P. OWUSU C/D/I/P AND DRAINING TO GRAVITY WITH 140ML OUTPUT. RECTAL TUBE IN PLACE WITHOUT LEAKAGE 400ML OUTPUT LIQUID BROWN STOOL NOTED. NG TUBE IN PLACE WITH TUBE FEEDING PER ORDER WITHOUT RESIDUAL. PATIENT IN AND OUT OF AFIB AND ST WITH PAC'S. AT THIS TIME AFIB 100-110. PATIENT IN NO SIGNS OF DISTRESS. DENIES PAIN. ALERT AND ORIENTED X2. SAFETY, SKIN, ASPIRATION PRECAUTIONS IN PLACE AND MONITORED THROUGHOUT THE DAY. CARE ENDORSED TO RN FOR JOSH.
[2019-01-08] VITALS (33 sets, daily range): BP systolic 78–152; BP diastolic 46–74
[2019-01-08] MEDS: ACETAMINOPHEN 325 MG TABLET PO PRN (00:03)
[2019-01-08] MEDS: IPRATROPIUM NEB FS 0.5 MG/2.5 ML AMPUL.NEB NEB SCH ×4 (01:30→19:35)
[2019-01-08] MEDS: ALBUTEROL HALF STRENGTH 1.25 MG/3 ML VIAL.NEB NEB SCH ×4 (01:30→19:35)
[2019-01-08 02:22] LABS: ABG PCO2 37.4 mmHg (35.0-45.0); ABG PO2 64.7 mmHg (75.0-100.0); AaDO2 206.4 mmHg; MetHb 1.1 % (0.0-1.5); SITE, ABG Left Radial; VENT MODE, BG NC 6L
[2019-01-08] MEDS: METOCLOPRAMIDE HCL 10 MG/2 ML VIAL IV SCH ×4 (02:40→20:36)
[2019-01-08] MEDS: IV NS 0.9% 250 ML IV PRN (03:00)
[2019-01-08] MEDS: DILTIAZEM HCL 30 MG TABLET NG SCH ×3 (05:13→17:17)
[2019-01-08] MEDS: NEPRO 1,000 ML BOTTLE GT PRN (05:15)
--- NOTE | 2019-01-08 06:55 | NUR ---
YOUTH CORRECTIONS OFFICER NOTE PT REMAINED STABLE DURING SHIFT. NO ACUTE DISTRESS NOTED. ALL NEEDS ATTENDED TO PROMPTLY. REMAINS ON 5L OF O2 VIA NC AND SATURATING 96%. KEPT CLEAN AND DRY. SUCTIONED NEEDED. WILL ENDORSE TO NEXT SHIFT FOR CONTINUITY OF CARE.
--- NOTE | 2019-01-08 07:10 | NUR ---
RN INITIAL NOTES: Rec'd pt on bed not in any distress, drowsy, opens eyes spontaneously. On NC at 5lpm, sating at 98%. On telemonitor, ST 104 bpm. Has NGT on L nare w/ Nepro x 35 cc/hr infusing well, no residual noted upon checking. Has BERNA PICC line, TKO & R IJ HD cath w/ pigtail, both no s/sx of infection/infiltration noted. Has FC draining to BSB w/ yellowish UOP. Has rectal tube in place. Safety precaution in place w/ bed in lowest & locked pos. Call light placed w/in reach. Will cont to monitor & attend pt needs.
[2019-01-08] MEDS: ACETYLCYSTEINE 10% SOLN 400 MG/4 ML VIAL NEB SCH ×3 (07:23→23:40)
--- NOTE | 2019-01-08 07:58 | NUR ---
Pt seen & examined by Dr. Giles & updated about pt status.
[2019-01-08] MEDS: SEVELAMER CARBONATE 0.8 GM POWD.PACK GT SCH ×3 (08:08→17:17)
[2019-01-08] MEDS: PANTOPRAZOLE 40 MG VIAL IV SCH ×2 (08:08→20:36)
[2019-01-08] MEDS: CLOTRIMAZOLE 1% 15 GM TUBE TP SCH ×2 (08:08→17:18)
[2019-01-08] MEDS: PROSOURCE / PROSTAT (PYXIS) 30 ML UDC PO SCH ×3 (08:08→17:17)
[2019-01-08] MEDS: HYDROGEL DRESSING 90 GM TUBE TP SCH (08:08)
[2019-01-08 08:30] LABS: ABG BASE EXCESS 3.8 mmol/L; ABG OXYGEN SATURATION 93.7 % (92.0-98.5); ABG PCO2 47.1 mmHg (35.0-45.0); ABG PH 7.406 (7.350-7.450); AaDO2 176.8 mmHg; COHb 0.9 % (0.5-1.5); MetHb 1.2 % (0.0-1.5); O2Hb 91.7 % (94.0-97.0); SITE, ABG Right Radial; VENT MODE, BG 6L N/C
--- NOTE | 2019-01-08 09:00 | NUR ---
G reviewed by Dr. Romero. Pt seen & examined by MD & was able to talk to the significant other at bedside. Concern/s of the S.O answered by .
--- NOTE | 2019-01-08 10:40 | NUR ---
Pt was placed back on BIPAP per MD's order. RT made aware.
[2019-01-08] MEDS ORDERED: EPOETIN ALFA (10,000 UNIT) 10,000 UNIT/ML VIAL IV ONE (12:00)
[2019-01-08] MEDS: DIGOXIN INJ 0.5 MG/2 ML AMPUL IV SCH (12:27)
[2019-01-08] MEDS: MEROPENEM 500 MG in IV NS 0.9% 50 ML IV SCH (12:29)
--- NOTE | 2019-01-08 18:09 | NUR ---
RN CLOSING NOTES: Pt resting comfortably on his bed w/ Bipap mask on. On telemonitor, remains ST. NGT on L nare kept patent & intact w/ Nepro x 35 cc/hr infusing well, no residual noted w/in shift. BERNA PICC line, TKO & R IJ HD cath w/ pigtail, kept intact w/ no s/sx of infection/infiltration noted. FC draining to BSB w/ yellowish UOP. Rectal tube kept in place & flushed. Safety precaution kept in place at all times w/ bed in lowest & locked pos. Call light placed w/in reach. Will endorse to PM RN for JOSH.
--- NOTE | 2019-01-08 19:33 | NUR ---
agricultural produce washer. initial assessment. RECEIVED THE PT REST ON THE BED. AWAKE, ALERT. LETHARGIC, BIPAP ON, TACHYPNEIC. BIPAP SETTINGS 15/5,RATE IS 12, FIO2 60%. SAT 96%. LIEUTENANT GOVERNOR SHOWING NSR. FC PATENT. FLEXA SEAL INTACT. IV RT UPPER ARM PICC LINE, RT IJ HD CATH. TKO RUNNING, RT NARE NGT INTACT. NEPRO 35ML/H. HOB ELEVATED. WILL CONTINUE TO MONITOR VITALS.
--- NOTE | 2019-01-08 20:44 | NUR ---
RECEIVED PT ON BIPAP 31/01, 12, 60%. TOLERATING SETTINGS. MEPILEX IN PLACE. NOTICED REDNESS ON THE BRIDGE OF THE NOSE, RN NOTIFIED. WILL CONTINUE TO MONITOR. Addendum: 01/08/19 at 2045 by RENA MAYA RT Amended: Links added.
--- NOTE | 2019-01-08 22:38 | NUR ---
NUTRIENT MANAGEMENT SPECIALIST. PT IS NOT RESPONDING. SAT 86%. WITH BIPAP. ABG STAT ORDERED.
[2019-01-08 22:49] LABS: ABG BASE EXCESS 2.7 mmol/L; ABG OXYGEN SATURATION 94.1 % (92.0-98.5); ABG PCO2 103.1 mmHg (35.0-45.0); ABG PH 7.125 (7.350-7.450); ABG PO2 95.8 mmHg (75.0-100.0); AaDO2 218.6 mmHg; COHb 0.6 % (0.5-1.5); MetHb 1.3 % (0.0-1.5); O2Hb 92.3 % (94.0-97.0); SITE, ABG Left Radial
[2019-01-08] MEDS ORDERED: LORAZEPAM INJ 2 MG/ML VIAL ONE (23:09)
[2019-01-08] MEDS ORDERED: LORAZEPAM INJ 2 MG/ML VIAL IV ONE (23:30)
[2019-01-08] MEDS ORDERED: NOREPINEPHRINE 4 MG/4 ML AMPUL IV ONE (23:35)
[2019-01-08] MEDS: NOREPINEPHRINE 16 MG in IV D5W 500 ML IV PRN (23:40)
[2019-01-09] VITALS (41 sets, daily range): BP systolic 39–112; BP diastolic 28–73
[2019-01-09] MEDS: DILTIAZEM HCL 30 MG TABLET NG SCH
[2019-01-09] MEDS ORDERED: PROPOFOL 100 ML IV PRN
[2019-01-09 00:18] LABS: ABG BASE EXCESS 4.8 mmol/L; ABG OXYGEN SATURATION 99.1 % (92.0-98.5); ABG PCO2 54.1 mmHg (35.0-45.0); ABG PH 7.371 (7.350-7.450); ABG PO2 239.1 mmHg (75.0-100.0); AaDO2 419.8 mmHg; COHb 0.9 % (0.5-1.5); MetHb 1.1 % (0.0-1.5); O2Hb 97.1 % (94.0-97.0); PEEP,BG 0 cm H2O; SITE, ABG Left Radial; VENT MODE, BG AC 28 500 100%
--- NOTE | 2019-01-09 00:20 | NUR ---
01/08/19 @2241 STAT ABG ORDERED. NOTIFIED ROULA KING WITH CRITICAL VALUE. CALLED ER MD FOR INTUBATION. PT INTUBATED BY DR HARPER, 7.5 ETT SECURED AT 23CM. GOOD COLOR CHANGE ON CO2 DETECTOR, BILAT CHEST RISE. PT PLACED ON 840 VENT. POST INTUBATION ABG DONE AT 01/09/19 @0011. NOTIFIED CHRISTINE WITH THE RESULT. FIO2 TITRATED. WILL CONTINUE TO MONITOR.
[2019-01-09] MEDS ORDERED: IV NS 0.9% 500 ML IV ONE ×2 (00:30)
--- NOTE | 2019-01-09 01:09 | NUR ---
SPLIT LEATHER MOSSER. 2241ABG DONE. CRITICAL RESULT NOTIFIED NORIS ENCISO, WE CALLED ER MD FOR INTUBATION.DR HARPER INTUBATED .S/P INTUBATION X RAY DONE. ETT 7.5, LIP 23, AC 28,TV 500, FIO2 100%. WILL CONTINUE TO MONITOR.
[2019-01-09] MEDS: ALBUTEROL HALF STRENGTH 1.25 MG/3 ML VIAL.NEB NEB SCH ×2 (01:15→07:55)
[2019-01-09] MEDS: IPRATROPIUM NEB FS 0.5 MG/2.5 ML AMPUL.NEB NEB SCH ×2 (01:15→07:55)
--- NOTE | 2019-01-09 01:16 | NUR ---
GAS LINE INSTALLER SUPERVISOR, S/P INTUBATION ABG DONE. FIO2 TITRATED DOWN 80%. WILL CONTINUE TO MONITOR VITALS.
--- NOTE | 2019-01-09 01:17 | NUR ---
HEALTH ADVOCATE,. BLOOD PRESSURE 77/59. NORIS MADE AWARE. LEVOPHED STARTED.
--- NOTE | 2019-01-09 01:18 | NUR ---
FIRE SAFETY MANAGER. NS 500ML BOLUS GIVEN. CVP PLACED, READING 4. WILL CONTINUE TO MONITOR.
[2019-01-09] MEDS: METOCLOPRAMIDE HCL 10 MG/2 ML VIAL IV SCH (03:33)
--- NOTE | 2019-01-09 05:03 | NUR ---
TRUCK MECHANIC. AM CARE, ORAL CARE. BED BATH GIVEN. LINEN CHANGED. REMAINING SAME VENT SETTING TOLERATED WELL. SAT 98%. MOTION PICTURE SCENE BUILDER SHOWING AFLUTTER, HOB ELEVATED. IV RT UPPER ARM PICC LINE DIPRIVAN 2MCG/KG/MIN,LEVOPHED 20MCG/MIN FC PATENT. RT NARE NGT CLAMPED. FLEXA SEAL INTACT. TURN AND REPOSITION Q2H. WILL CONTINUE TO MONITOR VITALS.
[2019-01-09] MEDS ORDERED: HYDROCORTISONE SOD SUCCINATE 100 MG/2 ML VIAL IV SCH (06:30)
[2019-01-09] MEDS ORDERED: PHENYLEPHRINE 10 MG/ML VIAL ONE (06:32)
[2019-01-09] MEDS: PHENYLEPHRINE 80 MG in IV D5W 250 ML IV PRN (06:36)
[2019-01-09] MEDS ORDERED: PHENYLEPHRINE 80 MG in IV NS 0.9% 250 ML IV PRN (06:40)
--- NOTE | 2019-01-09 06:44 | NUR ---
SHORE MAN. UNCONTROLLED AFIB, DR MARTÍNEZ MADE AWARE. . LEVO CHANGED TO DALIA.WILL CONTINUE TO MONITOR.
[2019-01-09 07:43] LABS: BASOPHILS % (AUTO) 0.4 % (0.0-2.0); EOSINOPHILS % (AUTO) 0.2 % (0.0-6.0); LYMPHOCYTES # (AUTO) 0.5 /CMM (0.8-4.8); LYMPHOCYTES % (AUTO) 3.6 % (20.0-44.0); MEAN CORPUSCULAR HGB CONC 33 g/dl (31.0-36.0); MEAN CORPUSCULAR VOLUME 88 fL (80-96); MONOCYTES # (AUTO) 1.3 /CMM (0.1-1.30); MONOCYTES % (AUTO) 9.5 % (2.0-12.0); NEUTROPHILS # (AUTO) 11.6 /CMM (1.8-8.9); NEUTROPHILS % (AUTO) 86.3 % (43.0-81.0); PLATELET COUNT (AUTO) 342 /CMM (150-450); RED BLOOD CELL COUNT(AUTO) 2.18 MIL/uL (4.5-6.0); WHITE BLOOD COUNT (AUTO) 13.5 K/uL (4.3-11.0)
[2019-01-09] MEDS: SEVELAMER CARBONATE 0.8 GM POWD.PACK GT SCH (07:45)
[2019-01-09 07:50] LABS: HEMATOCRIT 19 % (39-51); HEMOGLOBIN 6.2 g/dL (13.5-17.5)
--- NOTE | 2019-01-09 07:50 | NUR ---
WOUND CARE FOLLOWUP: PT PRESENTS WITH SACRAL DEEP TISSUE INJURY IN EVOLUTION WITH IMPROVING RASH TO BUTTOCKS, INCONTINENCE ASSOCIATED SKIN DAMAGE TO PERIANAL AREA. RECTAL TUBE AND OWUSU CATH IN USE. RT ELBOW SKIN TEAR RESOLVED. PT NOW REINTUBATED. RECOMMENDATIONS MADE FOR SKIN PROTECTION AND WOUND CARE. DISCUSSED WITH NURSING STAFF. WILL SEE PRN. MULTIPLE CO-MORBIDITIES NOTED INCLUDING RENAL FAILURE, RESPIRATORY FAILURE, CARDIAC ISSUES AND SEPSIS. FURTHER SKIN BREAKDOWN MAY BE UNAVOIDABLE. IN AGREEMENT WITH PLAN OF CARE. Addendum: 01/09/19 at 0753 by MARITZA GUEVARA WNDNU Amended: Links added.
[2019-01-09] MEDS: ACETYLCYSTEINE 10% SOLN 400 MG/4 ML VIAL NEB SCH (07:55)
[2019-01-09 08:11] LABS: ALANINE AMINOTRANSFERASE 19 U/L (12-78); ALBUMIN 1.5 g/dL (3.4-5.0); ALKALINE PHOSPHATASE 116 U/L (46-116); ASPARTATE AMINOTRANSFERASE 27 U/L (15-37); BILIRUBIN,TOTAL 0.4 mg/dL (0.2-1.0); CALCIUM, SERUM 8.5 mg/dL (8.5-10.1); CARBON DIOXIDE 29 mmol/L (21-32); CHLORIDE 107 mmol/L (98-107); CREATININE 4.1 mg/dL (0.6-1.3); GLUCOSE 95 mg/dL (74-106); POTASSIUM 4.6 mmol/L (3.5-5.1); SODIUM SERUM 145 mmol/L (136-145)
[2019-01-09 08:16] LABS: UREA NITROGEN, BLOOD 83 mg/dL (7-18)
[2019-01-09] MEDS ORDERED: ATROPINE SULFATE 1 MG/10 ML DISP.SYRIN ONE (09:08)
--- NOTE | 2019-01-09 09:20 | NUR ---
pt. @ 0911 Addendum: 01/09/19 at 0920 by ELIDIA SULLIVAN RT Amended: Links added.
[2019-01-09 09:43] LABS: BAND % (MANUAL) 1 % (0.0-5.0); LYMPHOCYTES % (MANUAL) 6 % (16-48); MONOCYTES % (MANUAL) 11 % (0-11.0); NEUTROPHILS % (MANUAL) 82 (42-76)
[2019-01-09] MEDS ORDERED: SODIUM BICARBONATE SYR 50 MEQ/50 ML DISP.SYRIN IV ONE (09:43)
[2019-01-09] MEDS ORDERED: ATROPINE SULFATE 1 MG/10 ML DISP.SYRIN IV ONE (09:43)
[2019-01-09] MEDS ORDERED: EPINEPHRINE (1:10,000) SYRINGE 1 MG/10 ML DISP.SYRIN IVP ONE (09:43)
--- NOTE | 2019-01-09 10:40 | NUR ---
RN NOTE 0715: Received patient on sedation, easily aroused. With ETT to vent, tolerated settings at this time. With left NGT intact, clamped for now, will reassess. HOB elevated. ST 106. Per previous shift, with episode of Afib RVR 150's at 0600 that's why they changed the Levo to Héctor. Bryan cath intact, noted with karen colored urine drained to BSD. With rectal tube, noted still with loose stool. PACK OPERATOR restraints on for safety, noted with episode of moving left hand and placing near ETT. 0800: HD nurse at bedside. 0820: Made Tory RESIDENTIAL SOLAR SALES CONSULTANT awake for H/H, with order to give 1 unit PRBC. 0835: Patient noted with episode of SB 50's. SBP 60, titrated Héctor. 0840: Started on Levo. 0854: Patient became SB and eventually Asystole, pulseless, started CPR and Jose Omalley called. Dr. Romero in the unit. See code blue sheet for meds. Chery RESIDENTIAL SOLAR SALES CONSULTANT came in the unit too. 0905: Spoke with girlfriend on the phone, on the way to hospital, aware for what is happening. 0911: Dr. Romero called time of . 0915: Katiana Bearfreddycandace, girlfriend([phone]) arrived, reported what happened. She said she is the only one with him, patient's was 10 years ago and a niece has not been at reach for a while, she said she will try to contact her. Offered self to help on Mortuary, she said she will ask her neighbor to help her. Will place body to morgue for now. Cleaned body, placed in a body bag, with 2 ID on the right arm and place tag on the toe. 0945: [facility], case # [id number], may release body as appropriate. 0955: Called piper helper, spoke with Mynor, said no case, may release body as appropriate. 1040: Katiana informed us she will go and may place body to morgue now, called security. Addendum: 01/09/19 at 1139 by MACARIO MURILLO RN 0837: HD nurse stopped HD for BP 60's even after titrating Héctor, also with episode of SB 50's, now SR 60's with PVCs.
--- NOTE | 2019-01-09 11:30 | NUR ---
RN NOTE Accompanied security to bring body to [facility]. Katiana signed form to january release body. No belongings, Katiana brought home all belongings before.
[2019-01-09] MEDS ORDERED: FLUDROCORTISONE 0.1 MG TABLET NG SCH (12:00)
== END 2019-01-09 09:11 | disposition expired | DRG 870 ==
LOC: ER 01:20 → TELE-TD 04:23 → ICU 05:29 → TELE-TD 12-18 18:25 → TELE1 12-19 14:05 → MEDSG1 12-20 10:18 → TELE1 12-21 07:46 → ICU 12-21 08:04
PROVIDERS: ATTEND Nurse Practitioner Acute Care
PROC: 5A1955Z Respiratory Ventilation, Greater than 96 Consecutive Hours (ICD-10-PCS; principal; 2018-12-21)
PROC: 0BH17EZ Insertion of Endotracheal Airway into Trachea, Via Natural or Artificial Opening (ICD-10-PCS; 2018-12-21)
PROC: 02HV33Z Insertion of Infusion Device into Superior Vena Cava, Percutaneous Approach (ICD-10-PCS; 2018-12-21)
PROC: B548ZZA Ultrasonography of Superior Vena Cava, Guidance (ICD-10-PCS; 2018-12-21)
PROC: 05HM33Z Insertion of Infusion Device into Right Internal Jugular Vein, Percutaneous Approach (ICD-10-PCS; 2018-12-25)
PROC: B543ZZA Ultrasonography of Right Jugular Veins, Guidance (ICD-10-PCS; 2018-12-25)
PROC: 30233N1 Transfusion of Nonautologous Red Blood Cells into Peripheral Vein, Percutaneous Approach (ICD-10-PCS; 2018-12-28)
PROC: 05HM33Z Insertion of Infusion Device into Right Internal Jugular Vein, Percutaneous Approach (ICD-10-PCS; 2018-12-28)
PROC: B543ZZA Ultrasonography of Right Jugular Veins, Guidance (ICD-10-PCS; 2018-12-28)
PROC: 5A09557 Assistance with Respiratory Ventilation, Greater than 96 Consecutive Hours, Continuous Positive Airway Pressure (ICD-10-PCS; 2019-01-02)
PROC: 5A2204Z Restoration of Cardiac Rhythm, Single (ICD-10-PCS; 2019-01-09)
PROC: 5A1935Z Respiratory Ventilation, Less than 24 Consecutive Hours (ICD-10-PCS; 2019-01-09)
PROC: 0BH17EZ Insertion of Endotracheal Airway into Trachea, Via Natural or Artificial Opening (ICD-10-PCS; 2019-01-09)
DX: A40.3 Sepsis due to Streptococcus pneumoniae (principal); N17.0 Acute kidney failure with tubular necrosis; J96.01 Acute respiratory failure with hypoxia; I21.A1 Myocardial infarction type 2; G93.41 Metabolic encephalopathy; R65.21 Severe sepsis with septic shock; J69.0 Pneumonitis due to inhalation of food and vomit; E43 Unspecified severe protein-calorie malnutrition; J96.02 Acute respiratory failure with hypercapnia; J13 Pneumonia due to Streptococcus pneumoniae; K72.00 Acute and subacute hepatic failure without coma; T82.41XA Breakdown (mechanical) of vascular dialysis catheter, initial encounter; J44.0 Chronic obstructive pulmonary disease with (acute) lower respiratory infection; I48.92 Unspecified atrial flutter; D68.59 Other primary thrombophilia; D61.818 Other pancytopenia; E87.2 Acidosis; E22.2 Syndrome of inappropriate secretion of antidiuretic hormone; J44.1 Chronic obstructive pulmonary disease with (acute) exacerbation; R64 Cachexia; K92.2 Gastrointestinal hemorrhage, unspecified; J90 Pleural effusion, not elsewhere classified; I47.1 Supraventricular tachycardia; E87.0 Hyperosmolality and hypernatremia; E86.9 Volume depletion, unspecified; E83.42 Hypomagnesemia; E83.39 Other disorders of phosphorus metabolism; Y83.9 Surgical procedure, unspecified as the cause of abnormal reaction of the patient, or of later complication, without mention of misadventure at the time of the procedure; Y92.239 Unspecified place in hospital as the place of occurrence of the external cause; Z99.2 Dependence on renal dialysis; Z96.612 Presence of left artificial shoulder joint; Z87.891 Personal history of nicotine dependence; Z85.038 Personal history of other malignant neoplasm of large intestine; Z79.51 Long term (current) use of inhaled steroids; J39.8 Other specified diseases of upper respiratory tract; I48.91 Unspecified atrial fibrillation; E87.6 Hypokalemia; Z98.890 Other specified postprocedural states; G47.33 Obstructive sleep apnea (adult) (pediatric); I25.10 Atherosclerotic heart disease of native coronary artery without angina pectoris; E80.6 Other disorders of bilirubin metabolism; N28.1 Cyst of kidney, acquired; D63.8 Anemia in other chronic diseases classified elsewhere; Z79.82 Long term (current) use of aspirin; Z79.899 Other long term (current) drug therapy; T17.990A Other foreign object in respiratory tract, part unspecified in causing asphyxiation, initial encounter; X58.XXXA Exposure to other specified factors, initial encounter; Y92.9 Unspecified place or not applicable; Z74.09 Other reduced mobility; Y84.9 Medical procedure, unspecified as the cause of abnormal reaction of the patient, or of later complication, without mention of misadventure at the time of the procedure; Y92.89 Other specified places as the place of occurrence of the external cause; E66.01 Morbid (severe) obesity due to excess calories; I95.3 Hypotension of hemodialysis; I50.9 Heart failure, unspecified; I11.0 Hypertensive heart disease with heart failure; L89.150 Pressure ulcer of sacral region, unstageable
CPT/HCPCS: 31720; 36415; 36569; 36600; 71045-TC; 71250-TC; 76604-TC; 80048-TC; 80053-TC; 80061-TC; 80076-TC; 80162-TC; 80202-TC; 81000-TC; 82040-TC; 82272-TC; 82533; 82550-TC; 82570-TC; 82803-TC; 82962-TC; 83605-TC; 83735-TC; 83880; 83970; 84100-TC; 84155; 84155-TC; 84165; 84300-TC; 84439-TC; 84443-TC; 84478-TC; 84484-TC; 85025-TC; 85730-TC; 86704; 86705; 86706; 86803; 86850-TC; 86921-TC; 87040-TC; 87070-TC; 87081-TC; 87086-TC; 87186-TC; 87340; 87400; 87806; 87899; 90935-TC; 92526; 92611-TC; 93307-TC; 94002-TC; 94003-TC; 94668-TC; 94760-TC; 94799-TC; 99082-TC; A4216; A4217; A4349; A4624; A6248; A6402; C1750; C1751; C9113; G0378; J0171; J0282; J0330; J0456; J0461; J0610; J0692; J0696; J0885; J1160; J1642; J1644; J1720; J1940; J2020; J2060; J2185; J2248; J2370; J2543; J2765; J2920; J2930; J3370; J3475; J3480; J3490; J7030; J7040; J7042; J7050; J7060; J7070; P9016-BL; P9047